=== PATIENT | male | born 1960 | race Caucasian/White ===

== ENCOUNTER → 2018-01-03 12:45 | Outpatient (CLI) | payer MEDICAID, SELFPAY ==
--- NOTE | 2018-01-03 13:00 | SP.MBSS_ITS ---
PRIMARY / SECONDARY DIAGNOSIS: dysphagia (R13.10) REFERRING PHYSICIAN: Dr. Yonatan Ward MD CURRENT DIET: regular textures, thin liquids DENTITION: WFL MENTAL STATUS: WNL RESPIRATORY STATUS: O2 via room air PREVIOUS MODIFIED BARIUM SWALLOW STUDY: none REASON FOR REFERRAL: Patient is a 57 year old male referred for a modified barium swallow (MBS) study to objectively assess the Patients oropharyngeal swallow function under fluoroscopy secondary to reported globus sensation, with the Patient reporting a long history of gastroesophageal reflux. 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 Patient denies recent history of pneumonia / aspiration related pulmonary issues. 01/05/2018 barium esophagram / upper GI series scheduled. ADDITIONAL OBJECTIVE ASSESSMENT RESULTS: 02/01/2017 CXR revealed no acute abnormality is seen. MEDICAL HISTORY: Gastroesophageal reflux disease, anxiety. STUDY FINDINGS: Patient participated in a Modified Barium Swallow (MBS) study on 01/03/2018. Dr. Paredes was the radiologist present for this evaluation. This study was recorded in the lateral view and images were sent to PACs for storage. The following consistencies were presented to this patient for analysis of oropharyngeal swallow function: thin liquids, pudding, and a regular textured, Zahida Doone cookie. Results of the MBS are as follows: PENETRATION / ASPIRATION SCALE (LAZAR): 1 = does not enter airway 2 = enters airway/above vocal folds/ejected 3 = enters airway/above vocal folds/not ejected 4 = enters airway/contacts vocal folds/ejected 5 = enters airway/contacts vocal folds/not ejected 6 = enters airway/below vocal folds/ejected 7 = enters airway/below vocal folds/not ejected despite effort 8 = enters airway/below vocal folds/no effort PENETRATION / ASPIRATION SCALE (SCORE): Thin liquid - 5 mL tsp.: 1 Thin liquids via cup (sequential swallows): 2 Thin liquids via cup (single sip): 1 Thin liquids via cup (single sip): 1 Thin liquids via cup (single sip): 1 Thin liquids via straw (single sip): 1 Pudding via spoon: 1 Regular textured cookie: 1 Thin liquids via straw (sequential swallows): 1 IMPRESSION: DIAGNOSIS: mild pharyngeal dysphagia (R13.13) ORAL PHASE CHARACTERIZED BY: LABIAL SEAL: no labial escape TONGUE CONTROL DURING BOLUS MANIPULATION: intermittent posterior escape of less than half of bolus BOLUS PREPARATION / MASTICATION: timely and efficient chewing and mashing BOLUS TRANSPORT / LINGUAL MOTION: brisk tongue motion ORAL RESIDUE: trace residue lining oral structures PHARYNGEAL PHASE CHARACTERIZED BY: INITIATION OF PHARYNGEAL SWALLOW: bolus head in pyriforms at first hyoid excursion SOFT PALATE ELEVATION: no bolus between soft palate and pharyngeal wall LARYNGEAL ELEVATION: complete superior movement of thyroid cartilage with complete approximation of arytenoids cartilage to epiglottic petiole ANTERIOR HYOID EXCURSION: complete anterior movement EPIGLOTTIC MOVEMENT: complete epiglottic inversion LARYNGEAL VESTIBULE CLOSURE AT HEIGHT OF SWALLOW: complete laryngeal vestibule closure with no air/contrast in laryngeal vestibule PHARYNGEAL STRIPPING WAVE: pharyngeal stripping wave present / complete PHARYNGOESOPHAGEAL SEGMENT OPENING: partial distension and partial duration; partial obstruction of flow TONGUE BASE RETRACTION: no contrast between tongue base and posterior pharyngeal wall PHARYNGEAL RESIDUE: trace residue within or on pharyngeal structures ESOPHAGEAL PHASE CHARACTERIZED BY: ESOPHAGEAL BOLUS CLEARANCE IN THE UPRIGHT POSITION: could not view EFFECTS OF TREATMENT STRATEGIES ATTEMPTED: Reduced bolus size = effective DIET TEXTURE RECOMMENDATIONS: Will recommend a regular textured, thin liquid diet. COMPENSATORY STRATEGIES RECOMMENDED: Reduced bolus volume, straws with all liquids, seated upright at 90 degrees during PO intake, remain upright for 30-60 minutes post meal (GERD precaution) INTERPRETATION OF RESULTS: Patient presents with very mild pharyngeal dysphagia (R13.13) with no clear etiology of cause. Pharyngeal phase primarily marked by mildly impaired pharyngeal swallow onset timing resulting in suboptimal bolus location upon swallow onset contributing to prandial transient penetration during sequential swallows of thin liquids, with sufficient laryngeal vestibule pressure generated to expel penetrated material. Mild reduction in pharyngoesophageal segment opening did not result in functional motility impairments. All deficits ameliorated with bolus volume adjustments. RECOMMENDATIONS: Patient able to comprehend and express recommended intake precautions detailed above with sufficient detail to suggest high likelihood of compliance. Provided brief overview of signs and symptoms of aspiration, with recommendations for the Patient to further discuss symptoms with PCP. No further skilled speech- language services warranted at this time targeting dysphagia. ADDITIONAL COMMENTS/RECOMMENDATIONS: Results and recommendations were discussed with the Patient immediately following MBS completion, with the Patient verbalizing understanding and agreement with all recommendations and education provided. IMAGE COUNT: [id number] G-CODES: SWALLOWING [id number] Current Status: CI SWALLOWING G8997 Goal Status: CI SWALLOWING G8998 Discharge Status: CI Onesimo Dejesus M.A., CCC-OIL WELL SERVICE OPERATOR [facility] Speech-Language Pathology Department [email or web address]
== END ==
PROVIDERS: Family Provider Family Medicine; PCP Family Medicine; Visit Provider Otolaryngology
DX: R13.10 Dysphagia, unspecified (principal)
CPT/HCPCS: 74230; 92611

== ENCOUNTER → 2018-01-05 07:48 | Outpatient (CLI) | payer MEDICAID, SELFPAY | PROVIDERS: Family Provider Family Medicine; PCP Family Medicine; Visit Provider Otolaryngology | DX: R13.10 Dysphagia, unspecified (principal) | CPT/HCPCS: 74220 ==

== ENCOUNTER → 2020-04-08 15:32 | Outpatient (CLI) | payer MEDICAID, SELFPAY ==
[2020-04-08 15:06] VITALS: BMI 30.3
[2020-04-08 17:28] LABS: Absolute Lymphocyte Count 1.93 X10^3/uL (0.83-4.51); Absolute Neutrophil Count 3.6 X10^3/uL (2.0-7.7); Basophil# 0.04 X10^3/uL; Basophil% 0.6 % (0-1); Eosinophil# 0.26 X10^3/uL; Eosinophils% 4.1 % (0-5); Hematocrit 42.4 % (40-54); Hemoglobin 13.5 g/dL (13.0-16.5); Lymphocyte # 1.93 X10^3/ul (4.0); Lymphocyte % 30.3 % (19-41); Mean Corp Hgb Conc 31.8 g/dL (32-36); Mean Corpuscular Hgb 29.8 pg (27.0-32.0); Mean Corpuscular Volume 93.6 fL (80-94); Mean Platelet Vol. 10.3 fl (6.2-12.0); Monocyte# 0.54 X10^3/uL; Monocyte% 8.5 % (0-10); NRBC Flagged by Analyzer 0 % (0-5); Neutrophil # 3.59 X10^3/uL (2.7-7.7); Neutrophil % 56.3 % (47-70); Platelet Count 275 K/mm3 (150-450); RBC Distribution Width CV 12.4 % (11.6-14.6); Red Blood Count 4.53 M/mm3 (4.6-6.2); White Blood Count 6.4 K/mm3 (4.4-11.0)
[2020-04-08 17:41] LABS: ALB/GLOB Ratio 1.1 RATIO (0.9-2.4); AST(SGOT) 15 U/L (15-37); Alanine Aminotransfer ALT/SGPT 34 U/L (16-61); Albumin, Serum 3.6 g/dL (3.2-5.0); Alkaline Phosphatase 83 U/L (45-117); Anion Gap 4 (5-15); BUN 24 mg/dL (7-18); Calcium,Total 8.4 mg/dL (8.5-10.1); Chloride 108 mmol/L (98-107); Cholesterol 175 mg/dL (200); EST Glomerular Filtration Rate 48 mL/min (>60); Est Glom Filt Rate - Afr Amer 57 mL/min (>60); Globulin 3.3 g/dL (2.2-4.2); Glucose 102 mg/dL (74-106); High Density Lipoprotein 30 mg/dL; Potassium 4.4 mmol/L (3.5-5.1); Protein, Total 6.9 g/dL (6.4-8.2); Sodium Level 141 mmol/L (136-145); Triglycerides 340 mg/dL; Very Low Density Lipoprotein 68 mg/dL (5-40)
== END ==
PROVIDERS: PCP Internal Medicine; Referring Provider Internal Medicine; Visit Provider Internal Medicine
DX: F41.9 Anxiety disorder, unspecified (principal); F32.9 Major depressive disorder, single episode, unspecified; K21.9 Gastro-esophageal reflux disease without esophagitis
CPT/HCPCS: 36415; 80053; 80061; 85025

== ENCOUNTER → 2020-05-21 15:13 | Outpatient (CLI) | payer MEDICARE, MEDICAID, SELFPAY ==
[2020-05-21 14:25] VITALS: BMI 29.7
[2020-05-21 16:50] LABS: Anion Gap 3 (5-15); BUN 22 mg/dL (7-18); BUN/Creat Ratio 16.1 RATIO (10-20); Calcium,Total 8.9 mg/dL (8.5-10.1); Chloride 105 mmol/L (98-107); Creatinine, Serum 1.37 mg/dL (0.70-1.30); EST Glomerular Filtration Rate 57 mL/min (>60); Est Glom Filt Rate - Afr Amer 69 mL/min (>60); Glucose 87 mg/dL (74-106); Potassium 5.3 mmol/L (3.5-5.1); Sodium Level 141 mmol/L (136-145)
== END ==
PROVIDERS: PCP Internal Medicine; Referring Provider Internal Medicine; Visit Provider Internal Medicine
DX: N17.9 Acute kidney failure, unspecified (principal)
CPT/HCPCS: 36415; 80048

== ENCOUNTER → 2020-06-14 14:35 | Outpatient (CLI) | payer MEDICARE, MEDICAID, SELFPAY ==
[2020-05-21 14:25] VITALS: BMI 29.7
--- NOTE | 2020-06-14 14:54 | RAD_ITS ---
STUDY: X-RAY CHEST REASON FOR EXAM: Male, 59 years old. CHEST PAIN TECHNIQUE: PA and lateral views of the chest. COMPARISON: 02/01/2017 FINDINGS: Status post anterior cervical discectomy and fusion lower cervical spine. The lungs are clear and expanded. There is no demonstrated pleural abnormality. Normal size heart. Normal mediastinum and tyler. Normal visualized pulmonary arteries. Normal visualized aortic arch and descending thoracic aorta. Normal visualized thoracic spine. Normal visualized ribs, clavicles, and shoulders. There is no demonstrated abnormality of the visualized soft tissue structures of the upper abdomen. RAD/Chest PA and Lateral IMPRESSION: Normal x-ray examination of the chest. Electronically Signed: Billy Robles MD at 6:48 EST Tel , Service support ,
== END ==
PROVIDERS: PCP Internal Medicine; Referring Provider Internal Medicine; Visit Provider Internal Medicine
DX: R07.89 Other chest pain (principal)
CPT/HCPCS: 71046

== ENCOUNTER → 2020-06-24 14:37 | Outpatient (CLI) | payer MEDICARE, MEDICAID, SELFPAY ==
[2020-06-24 14:08] VITALS: BMI 29.7
[2020-06-24 17:00] LABS: Anion Gap 7 (5-15); BUN 23 mg/dL (7-18); BUN/Creat Ratio 14.4 RATIO (10-20); Calcium,Total 8.9 mg/dL (8.5-10.1); Chloride 108 mmol/L (98-107); EST Glomerular Filtration Rate 47 mL/min (>60); Est Glom Filt Rate - Afr Amer 57 mL/min (>60); Glucose 116 mg/dL (74-106); Potassium 4.2 mmol/L (3.5-5.1); Sodium Level 140 mmol/L (136-145)
== END ==
PROVIDERS: PCP Internal Medicine; Visit Provider Internal Medicine
DX: K21.9 Gastro-esophageal reflux disease without esophagitis (principal)
CPT/HCPCS: 36415; 80048

== ENCOUNTER → 2020-07-02 09:27 | Outpatient (CLI) | payer MEDICARE, SELFPAY ==
[2020-06-24 14:08] VITALS: BMI 29.7
--- NOTE | 2020-07-02 09:30 | EKG12_ITS ---
Test Reason : PRE OP Blood Pressure : / mmHG Vent. Rate : 081 BPM Atrial Rate : 081 BPM P-R Int : 162 ms QRS Dur : 086 ms QT Int : 364 ms P-R-T Axes : 019 011 027 degrees QTc Int : 422 ms Normal sinus rhythm Normal ECG Confirmed by NICHOLE PHILLIPS, ERICK ([id number]), editor map KIMBERLEY MIRELES ([id number]) on 07/03/2020 10:07:03 AM Referred By: Jayy Araya Confirmed By:ERICK VARELA MD
== END ==
PROVIDERS: PCP Internal Medicine; Referring Provider Internal Medicine; Visit Provider Internal Medicine
DX: E78.5 Hyperlipidemia, unspecified (principal); K21.9 Gastro-esophageal reflux disease without esophagitis
CPT/HCPCS: 93005

== ENCOUNTER → 2020-09-20 13:39 | Outpatient (CLI) | payer MEDICARE, SELFPAY ==
[2020-09-20 13:26] VITALS: BMI 30.3
[2020-09-20 15:29] LABS: Anion Gap 5 (5-15); BUN 16 mg/dL (7-18); BUN/Creat Ratio 10.3 RATIO (10-20); Calcium,Total 9.2 mg/dL (8.5-10.1); Chloride 107 mmol/L (98-107); Creatinine, Serum 1.56 mg/dL (0.70-1.30); EST Glomerular Filtration Rate 49 mL/min (>60); Est Glom Filt Rate - Afr Amer 59 mL/min (>60); Glucose 130 mg/dL (74-106); Potassium 5.1 mmol/L (3.5-5.1); Sodium Level 144 mmol/L (136-145)
== END ==
PROVIDERS: PCP Internal Medicine; Referring Provider Internal Medicine; Visit Provider Internal Medicine
DX: N28.9 Disorder of kidney and ureter, unspecified (principal)
CPT/HCPCS: 36415; 80048

== ENCOUNTER → 2020-12-23 11:41 | Outpatient (CLI) | payer MEDICARE, SELFPAY ==
[2020-12-23 10:56] VITALS: BMI 30.3
--- NOTE | 2020-12-23 12:02 | RAD_ITS ---
STUDY: X-RAY - LUMBAR SPINE REASON FOR EXAM: Male, 60 years old. Mid and low back with radiculopathy TECHNIQUE: 3 view(s) of the lumbar spine were obtained. COMPARISON: None FINDINGS: There is straightening of the normal lumbar lordosis. There is no substantial scoliosis. There is a normal alignment of the vertebrae. There is multilevel endplate spondylosis of the lumbar vertebrae. There is multi-level degenerative disc disease with multi-level disc space narrowing. There is no demonstrated fracture. There is atherosclerotic calcification of the abdominal aorta without a demonstrated aneurysm. RAD/Lumbar Spine 2 or 3 Views IMPRESSION: Degenerative changes of the spine, as detailed above. Electronically Signed: Baltazar Pringle MD at 19:01 EDT , Service support ,
--- NOTE | 2020-12-23 12:05 | RAD_ITS ---
STUDY: X-RAY - THORACIC SPINE REASON FOR EXAM: Male, 60 years old. Mid and low back with radiculopathy TECHNIQUE: 3 view(s) of the thoracic spine were obtained. COMPARISON: None. FINDINGS: Normal kyphosis of the thoracic spine. There is no substantial scoliosis. Normal thoracic vertebrae and endplates. There is multilevel disc space narrowing of the thoracic spine. The soft tissue structures are unremarkable. RAD/Thoracic Spine 3 Views IMPRESSION: Multilevel degenerative changes, no acute findings Electronically Signed: Baltazar Pringle MD at 19:02 EDT , Service support ,
[2020-12-23 15:44] LABS: AST(SGOT) 13 U/L (15-37); Alanine Aminotransfer ALT/SGPT 32 U/L (16-61); Albumin, Serum 3.8 g/dL (3.2-5.0); Alkaline Phosphatase 83 U/L (45-117); Anion Gap 4 (5-15); BUN 20 mg/dL (7-18); Calcium,Total 8.8 mg/dL (8.5-10.1); Chloride 106 mmol/L (98-107); Creatinine, Serum 1.33 mg/dL (0.70-1.30); EST Glomerular Filtration Rate 59 mL/min (>60); Est Glom Filt Rate - Afr Amer 71 mL/min (>60); Globulin 3.7 g/dL (2.2-4.2); Glucose 82 mg/dL (74-106); Magnesium 2.6 mg/dL (1.6-2.6); Potassium 5.1 mmol/L (3.5-5.1); Protein, Total 7.5 g/dL (6.4-8.2); Sodium Level 141 mmol/L (136-145)
== END ==
PROVIDERS: PCP Internal Medicine; Referring Provider Physician Assistant; Visit Provider Physician Assistant
DX: M54.5 Low back pain (principal); M54.6 Pain in thoracic spine; R25.2 Cramp and spasm
CPT/HCPCS: 36415; 72072; 72100; 80053; 83735

== ENCOUNTER → 2021-03-21 13:36 | Outpatient (CLI) | payer MEDICARE, SELFPAY ==
[2021-03-21 15:29] LABS: Absolute Lymphocyte Count 1.67 X10^3/uL (0.83-4.51); Absolute Neutrophil Count 4.3 X10^3/uL (2.0-7.7); Basophil# 0.03 X10^3/uL; Basophil% 0.4 % (0-1); Eosinophil# 0.28 X10^3/uL; Eosinophils% 4.2 % (0-5); Hematocrit 42.2 % (40-54); Lymphocyte # 1.67 X10^3/ul (0.83-4.51); Lymphocyte % 24.8 % (19-41); Mean Corp Hgb Conc 33.2 g/dL (32-36); Mean Corpuscular Volume 90.6 fL (80-94); Monocyte# 0.39 X10^3/uL; Monocyte% 5.8 % (0-10); NRBC Flagged by Analyzer 0 % (0-5); Neutrophil # 4.34 X10^3/uL (2.7-7.7); Neutrophil % 64.5 % (47-70); Platelet Count 320 K/mm3 (150-450); RBC Distribution Width CV 12.6 % (11.6-14.6); Red Blood Count 4.66 M/mm3 (4.6-6.2); White Blood Count 6.7 K/mm3 (4.4-11.0)
[2021-03-21 15:46] LABS: ALB/GLOB Ratio 0.9 RATIO (0.9-2.4); AST(SGOT) 22 U/L (15-37); Alanine Aminotransfer ALT/SGPT 42 U/L (16-61); Albumin, Serum 3.7 g/dL (3.2-5.0); Alkaline Phosphatase 75 U/L (45-117); Anion Gap 5 (5-15); BUN 21 mg/dL (7-18); BUN/Creat Ratio 13.7 RATIO (10-20); Calcium,Total 8.7 mg/dL (8.5-10.1); Chloride 107 mmol/L (98-107); Cholesterol 207 mg/dL (200); Creatinine, Serum 1.53 mg/dL (0.70-1.30); EST Glomerular Filtration Rate 50 mL/min (>60); Est Glom Filt Rate - Afr Amer 60 mL/min (>60); Glucose 118 mg/dL (74-106); High Density Lipoprotein 38 mg/dL; Potassium 4.2 mmol/L (3.5-5.1); Protein, Total 7.7 g/dL (6.4-8.2); Sodium Level 141 mmol/L (136-145); Triglycerides 244 mg/dL; Very Low Density Lipoprotein 49 mg/dL (5-40)
== END ==
PROVIDERS: PCP Internal Medicine; Referring Provider Internal Medicine; Visit Provider Internal Medicine
DX: E78.5 Hyperlipidemia, unspecified (principal)
CPT/HCPCS: 36415; 80053; 80061; 85025

== ENCOUNTER 2021-06-25 13:19 | Outpatient (CLI) | payer MEDICARE, SELFPAY ==
[2021-06-25 15:45] LABS: BUN 19 mg/dL (7-18); BUN/Creat Ratio 13.7 RATIO (10-20); Calcium,Total 8.5 mg/dL (8.5-10.1); Chloride 106 mmol/L (98-107); Creatinine, Serum 1.39 mg/dL (0.70-1.30); EST Glomerular Filtration Rate 56 mL/min (>60); Est Glom Filt Rate - Afr Amer 67 mL/min (>60); Glucose 107 mg/dL (74-106); Potassium 4.7 mmol/L (3.5-5.1); Sodium Level 140 mmol/L (136-145)
[2021-06-25 15:46] LABS: Anion Gap 2 (5-15)
== END 2021-06-25 23:59 | disposition home or self-care (01) ==
LOC: BIMLAB 13:20
PROVIDERS: PCP Internal Medicine; Referring Provider Internal Medicine; Visit Provider Internal Medicine
DX: N18.30 Chronic kidney disease, stage 3 unspecified (principal)
CPT/HCPCS: 36415; 80048

== ENCOUNTER → 2021-10-07 | Outpatient (CLI) | payer MEDICARE, SELFPAY ==
[2021-10-07 12:38] LABS: Erythrocyte Sedimentation Rate 13 mm/hr (0-20)
[2021-10-07 13:19] LABS: Rheumatoid Factor < 10.0 IU/mL (<15)
[2021-10-08 15:50] LABS: ANTINUCLEAR ANTIBODIES DIRECT Negative (Negative)
[2021-10-09 08:16] LABS: CCP IgG Antibodies 7 units (0-19)
== END | disposition home or self-care (01) ==
LOC: BIMLAB 11:35
PROVIDERS: PCP Internal Medicine; Referring Provider Internal Medicine; Visit Provider Internal Medicine
DX: M19.90 Unspecified osteoarthritis, unspecified site (principal); R53.83 Other fatigue
CPT/HCPCS: 36415; 85652; 86038; 86200; 86225; 86235; 86431

== ENCOUNTER 2021-11-13 09:45 | Outpatient (CLI) | payer MEDICARE, SELFPAY ==
[2021-11-13 12:47] LABS: Hematocrit 43.1 % (40-54); Hemoglobin 14.3 g/dL (13.0-16.5); Mean Corp Hgb Conc 33.2 g/dL (32-36); Mean Corpuscular Hgb 30.2 pg (27.0-32.0); Mean Corpuscular Volume 90.9 fL (80-94); Mean Platelet Vol. 9.9 fl (6.2-12.0); Platelet Count 301 K/mm3 (150-450); RBC Distribution Width CV 12.1 % (11.6-14.6); RBC Distribution Width SD 40.2 fl (35.1-43.9); Red Blood Count 4.74 M/mm3 (4.6-6.2); White Blood Count 5.7 K/mm3 (4.4-11.0)
[2021-11-13 13:04] LABS: Homocysteine 6.8 umol/L (3.2-10.7)
[2021-11-13 13:07] LABS: T3 Total - Triiodothyronine 1.41 ng/mL (0.6-1.81); Vitamin B12 664 pg/mL (211-911); Vitamin D,25 Hydroxy 23.1 ng/mL
[2021-11-13 13:16] LABS: Progesterone Level < 0.21 ng/mL (See Comment)
[2021-11-13 13:24] LABS: Hemoglobin A1c 5.4 % (3.8-5.6)
[2021-11-13 13:59] LABS: ALB/GLOB Ratio 1.1 RATIO (0.9-2.4); AST(SGOT) 15 U/L (15-37); Alanine Aminotransfer ALT/SGPT 34 U/L (16-61); Albumin, Serum 3.9 g/dL (3.2-5.0); Alkaline Phosphatase 81 U/L (45-117); Anion Gap 2 (5-15); BUN 20 mg/dL (7-18); BUN/Creat Ratio 15.7 RATIO (10-20); CRP, High Sensitivity Cardiac 8.46 mg/L; Calcium,Total 8.7 mg/dL (8.5-10.1); Chloride 107 mmol/L (98-107); Cholesterol 190 mg/dL (200); Creatinine, Serum 1.27 mg/dL (0.70-1.30); EST Glomerular Filtration Rate 62 mL/min (>60); Est Glom Filt Rate - Afr Amer 75 mL/min (>60); Estradiol 13.2 pg/mL; Follicle Stimulating Hormone 4.3 mIU/mL; Globulin 3.6 g/dL (2.2-4.2); Glucose 103 mg/dL (74-106); High Density Lipoprotein 39 mg/dL; Iron 85 ug/dL (65-175); Luteinizing Hormone 3.1 mIU/mL; Magnesium 2.2 mg/dL (1.6-2.6); PSA,Total - Annual Screen 1.32 ng/mL (0.00-4.00); Potassium 4.4 mmol/L (3.5-5.1); Prolactin 5.5 ng/mL; Protein, Total 7.5 g/dL (6.4-8.2); Sodium Level 139 mmol/L (136-145); T4 Free Direct 0.79 ng/dL (0.76-1.46); T4 Total, Thyroxin 9.1 ug/dL (4.5-12.1); Triglycerides 162 mg/dL; Very Low Density Lipoprotein 32 mg/dL (5-40)
[2021-11-16 12:07] LABS: DHEA Sulfate 52.5 ug/dL (48.9-344.2); Insulin Like Growth Factor 37 ng/mL (68-247); Testosterone, % Free 3.52 % (1.50-4.20); Testosterone, Free 8.76 ng/dL (5.00-21.00)
[2021-11-16 13:36] LABS: Sex Hormone-binding Globulin 23.3 nmol/L (19.3-76.4); Testosterone, Total 249 ng/dL (264-916)
== END 2021-11-13 23:59 | disposition home or self-care (01) ==
PROVIDERS: PCP Internal Medicine; Referring Provider Nurse Practitioner Family; Visit Provider Nurse Practitioner Family
DX: R53.82 Chronic fatigue, unspecified (principal); N18.30 Chronic kidney disease, stage 3 unspecified; M62.81 Muscle weakness (generalized); R68.82 Decreased libido; Z12.5 Encounter for screening for malignant neoplasm of prostate; E29.1 Testicular hypofunction; I10 Essential (primary) hypertension; F32.A Depression, unspecified
CPT/HCPCS: 36415; 80053; 80061; 82306; 82533; 82607; 82627; 82670; 82746; 83001; 83002; 83036; 83090; 83540; 83735; 84144; 84146; 84153; 84270; 84305; 84402; 84403; 84436; 84439; 84443; 84480; 85027; 86141; 82626; G0103

== ENCOUNTER 2022-02-03 12:10 | Outpatient (CLI) | payer MEDICARE, SELFPAY ==
[2022-02-03 12:59] LABS: Hematocrit 47.8 % (40-54); Hemoglobin 15.9 g/dL (13.0-16.5); Mean Corp Hgb Conc 33.3 g/dL (32-36); Mean Corpuscular Hgb 30.1 pg (27.0-32.0); Mean Corpuscular Volume 90.5 fL (80-94); Mean Platelet Vol. 9.7 fl (6.2-12.0); Platelet Count 312 K/mm3 (150-450); RBC Distribution Width CV 12.6 % (11.6-14.6); Red Blood Count 5.28 M/mm3 (4.6-6.2); White Blood Count 6.9 K/mm3 (4.4-11.0)
[2022-02-03 13:28] LABS: T3 Total - Triiodothyronine 1.25 ng/mL (0.6-1.81); Vitamin B12 553 pg/mL (211-911); Vitamin D,25 Hydroxy 22.7 ng/mL
[2022-02-03 13:42] LABS: Homocysteine 7.6 umol/L (3.2-10.7)
[2022-02-03 13:45] LABS: Hemoglobin A1c 5.1 % (3.8-5.6)
[2022-02-03 14:14] LABS: ALB/GLOB Ratio 0.9 RATIO (0.9-2.4); AST(SGOT) 15 U/L (15-37); Alanine Aminotransfer ALT/SGPT 26 U/L (16-61); Albumin, Serum 3.6 g/dL (3.2-5.0); Alkaline Phosphatase 81 U/L (45-117); Anion Gap 6 (5-15); BUN 14 mg/dL (7-18); BUN/Creat Ratio 12.1 RATIO (10-20); Calcium,Total 8.5 mg/dL (8.5-10.1); Chloride 107 mmol/L (98-107); Cholesterol 166 mg/dL (200); Creatinine, Serum 1.16 mg/dL (0.70-1.30); EST Glomerular Filtration Rate 68 mL/min (>60); Est Glom Filt Rate - Afr Amer 83 mL/min (>60); Estradiol 56.5 pg/mL; Follicle Stimulating Hormone < 0.2 mIU/mL; Globulin 3.8 g/dL (2.2-4.2); Glucose 84 mg/dL (74-106); High Density Lipoprotein 35 mg/dL; Iron 50 ug/dL (65-175); Luteinizing Hormone < 0.2 mIU/mL; Magnesium 2.3 mg/dL (1.6-2.6); PSA,Total- Diagnostic 1.89 ng/mL (0.0-4.0); Potassium 4.4 mmol/L (3.5-5.1); Protein, Total 7.4 g/dL (6.4-8.2); Sodium Level 140 mmol/L (136-145); T4 Total, Thyroxin 6.1 ug/dL (4.5-12.1); Thyroid Stim Hormone (TSH) 1.12 uIU/mL (0.358-3.74); Triglycerides 150 mg/dL; Very Low Density Lipoprotein 30 mg/dL (5-40)
[2022-02-04 10:53] LABS: Progesterone Level 0.29 ng/mL (See Comment)
[2022-02-15 18:07] LABS: DHEA Sulfate 69.3 ug/dL (48.9-344.2); Insulin Like Growth Factor 55 ng/mL (68-247); Testosterone, % Free 3.55 % (1.50-4.20); Testosterone, Free 32.98 ng/dL (5.00-21.00)
[2022-02-16 13:42] LABS: Sex Hormone-binding Globulin 22.1 nmol/L (19.3-76.4); Testosterone, Total 929 ng/dL (264-916)
== END 2022-02-03 23:59 | disposition home or self-care (01) ==
PROVIDERS: PCP Internal Medicine; Visit Provider Nurse Practitioner Family
DX: R53.82 Chronic fatigue, unspecified (principal); M62.81 Muscle weakness (generalized); R68.82 Decreased libido; K29.30 Chronic superficial gastritis without bleeding; F06.31 Mood disorder due to known physiological condition with depressive features
CPT/HCPCS: 36415; 80053; 80061; 82306; 82533; 82607; 82627; 82670; 82746; 83001; 83002; 83036; 83090; 83540; 83735; 84144; 84146; 84153; 84270; 84305; 84402; 84403; 84436; 84439; 84443; 84480; 85027; 86141; 82626

== ENCOUNTER 2022-08-27 15:07 | Outpatient (CLI) | payer MEDICARE, SELFPAY ==
[2022-08-27 16:36] LABS: Absolute Lymphocyte Count 1.92 X10^3/uL (0.83-4.51); Absolute Neutrophil Count 3.7 X10^3/uL (2.0-7.7); Basophil# 0.05 X10^3/uL; Basophil% 0.8 % (0-1); Eosinophil# 0.24 X10^3/uL; Eosinophils% 3.7 % (0-5); Hematocrit 42.1 % (40-54); Hemoglobin 14.3 g/dL (13.0-16.5); Lymphocyte # 1.92 X10^3/ul (0.83-4.51); Lymphocyte % 29.9 % (19-41); Mean Corpuscular Hgb 31.3 pg (27.0-32.0); Mean Corpuscular Volume 92.1 fL (80-94); Mean Platelet Vol. 9.9 fl (6.2-12.0); Monocyte# 0.46 X10^3/uL; Monocyte% 7.2 % (0-10); NRBC Flagged by Analyzer 0 % (0-5); Neutrophil # 3.72 X10^3/uL (2.7-7.7); Neutrophil % 57.9 % (47-70); Platelet Count 277 K/mm3 (150-450); RBC Distribution Width CV 12.5 % (11.6-14.6); RBC Distribution Width SD 42.1 fl (35.1-43.9); Red Blood Count 4.57 M/mm3 (4.6-6.2); White Blood Count 6.4 K/mm3 (4.4-11.0)
[2022-08-27 16:43] LABS: Prothrombin Time (Protime)PT. 12.7 SECONDS (11.7-14.9)
[2022-08-27 16:44] LABS: Partial Thromboplast Time 26.9 Seconds (24.1-36.2)
[2022-08-27 17:04] LABS: ALB/GLOB Ratio 1.2 RATIO (0.9-2.4); AST(SGOT) 11 U/L (15-37); Alanine Aminotransfer ALT/SGPT 28 U/L (16-61); Albumin, Serum 3.8 g/dL (3.2-5.0); Alkaline Phosphatase 76 U/L (45-117); Anion Gap 5 (5-15); BUN 19 mg/dL (7-18); BUN/Creat Ratio 19.7 RATIO (10-20); Calcium,Total 8.4 mg/dL (8.5-10.1); Chloride 107 mmol/L (98-107); Creatinine, Serum 0.96 mg/dL (0.70-1.30); EST Glomerular Filtration Rate 85 mL/min (>60); Est Glom Filt Rate - Afr Amer 102 mL/min (>60); Globulin 3.2 g/dL (2.2-4.2); Glucose 104 mg/dL (74-106); Potassium 3.7 mmol/L (3.5-5.1); Sodium Level 138 mmol/L (136-145)
== END 2022-08-27 23:59 | disposition home or self-care (01) ==
LOC: BIMLAB 15:08
PROVIDERS: PCP Internal Medicine; Visit Provider Internal Medicine
DX: Z01.818 Encounter for other preprocedural examination (principal); Z01.810 Encounter for preprocedural cardiovascular examination; Z01.811 Encounter for preprocedural respiratory examination; Z79.01 Long term (current) use of anticoagulants
CPT/HCPCS: 36415; 80053; 85025; 85610; 85730

== ENCOUNTER → 2023-03-11 | Outpatient (CLI) | payer MEDICARE, MEDICAID, SELFPAY ==
[2023-03-11 16:57] LABS: Cholesterol 216 mg/dL (200); High Density Lipoprotein 32 mg/dL; Triglycerides 368 mg/dL; Very Low Density Lipoprotein 74 mg/dL (5-40)
== END | disposition home or self-care (01) ==
LOC: BIMLAB 15:54
PROVIDERS: PCP Internal Medicine; Referring Provider Internal Medicine; Visit Provider Internal Medicine
DX: R35.1 Nocturia (principal); Z79.899 Other long term (current) drug therapy
CPT/HCPCS: 36415; 80061; 84153; G0103

== ENCOUNTER 2023-04-01 15:16 | Observation (INO) | payer MEDICARE, MEDICAID, SELFPAY ==
--- NOTE | 2023-03-26 06:57 | EKG12_ITS ---
Test Reason : PRE-OP Blood Pressure : / mmHG Vent. Rate : 081 BPM Atrial Rate : 081 BPM P-R Int : 174 ms QRS Dur : 080 ms QT Int : 366 ms P-R-T Axes : 034 020 052 degrees QTc Int : 425 ms Normal sinus rhythm Normal ECG Confirmed by NO PHILLIPS, GENIE ([id number]), subeditor SHANICE RIZVI ([id number]) on 03/29/2023 8:23:16 AM Referred By: Clayton Feldman Confirmed By:MARIAM SARABIA MD
--- NOTE | 2023-03-26 07:05 | RAD_ITS ---
STUDY: X-RAY CHEST REASON FOR EXAM: Male, 62 years old. PREOP TECHNIQUE: PA and lateral views of the chest. COMPARISON: 06/14/2020 FINDINGS: Status post anterior cervical discectomy and fusion lower cervical spine. The lungs are clear and expanded. There is no demonstrated pleural abnormality. Normal size heart. Normal mediastinum and tyler. Normal visualized pulmonary arteries. Normal visualized aortic arch and descending thoracic aorta. Normal visualized thoracic spine. Normal visualized ribs, clavicles, and shoulders. There is no demonstrated abnormality of the visualized soft tissue structures of the upper abdomen. RAD/Chest PA and Lateral IMPRESSION: No active disease. Electronically Signed: Billy Robles MD at 18:27 [facility] ,
[2023-03-26 07:43] LABS: Absolute Lymphocyte Count 1.81 X10^3/uL (0.83-4.51); Absolute Neutrophil Count 4.4 X10^3/uL (2.0-7.7); Basophil# 0.04 X10^3/uL; Basophil% 0.6 % (0-1); Eosinophil# 0.31 X10^3/uL; Eosinophils% 4.3 % (0-5); Hematocrit 42.9 % (40-54); Hemoglobin 14.7 g/dL (13.0-16.5); Lymphocyte # 1.81 X10^3/ul (0.83-4.51); Lymphocyte % 25.2 % (19-41); Mean Corp Hgb Conc 34.3 g/dL (32-36); Mean Corpuscular Hgb 31.5 pg (27.0-32.0); Mean Corpuscular Volume 92.1 fL (80-94); Mean Platelet Vol. 9.9 fl (6.2-12.0); Monocyte# 0.58 X10^3/uL; Monocyte% 8.1 % (0-10); NRBC Flagged by Analyzer 0 % (0-5); Neutrophil # 4.43 X10^3/uL (2.7-7.7); Neutrophil % 61.5 % (47-70); Platelet Count 304 K/mm3 (150-450); RBC Distribution Width CV 12.4 % (11.6-14.6); RBC Distribution Width SD 41.9 fl (35.1-43.9); Red Blood Count 4.66 M/mm3 (4.6-6.2); White Blood Count 7.2 K/mm3 (4.4-11.0)
[2023-03-26 07:52] LABS: International Normalized Ratio 0.9; Prothrombin Time (Protime)PT. 12.5 SECONDS (11.7-14.9)
[2023-03-26 07:53] LABS: Partial Thromboplast Time 27.6 Seconds (24.1-36.2)
[2023-03-26 08:09] LABS: Anion Gap 3 (5-15); BUN 23 mg/dL (7-18); BUN/Creat Ratio 18.7 RATIO (10-20); Calcium,Total 8.2 mg/dL (8.5-10.1); Chloride 109 mmol/L (98-107); Creatinine, Serum 1.23 mg/dL (0.70-1.30); EST Glomerular Filtration Rate 64 mL/min (>60); Est Glom Filt Rate - Afr Amer 77 mL/min (>60); Glucose 125 mg/dL (74-106); Potassium 3.9 mmol/L (3.5-5.1); Sodium Level 139 mmol/L (136-145)
[2023-04-01] VITALS (33 sets, daily range): BP systolic 106–144; BP diastolic 64–97; PULSE 78–100; RESP 15–18; TEMP 36.2–36.6; O2SAT 88–100; BMI 30.6
[2023-04-01] MEDS: Lactated Ringers 1,000 ML 15 ML IV ×2 (06:32→13:24)
--- NOTE | 2023-04-01 07:19 | PCM.OPRPT ---
Problems Associated Problem List Diagnoses (1) Lumbar stenosis: Report of Operation Date of Procedure: 04/01/23 Description of Surgical Findings:: REPORT OF OPERATION PREOPERATIVE DIAGNOSES: 1. Lumbar stenosis, L4-5 with spondylosis. 2. Lumbar disc herniation L4-5 right. POSTOPERATIVE DIAGNOSES: 1. Lumbar stenosis, L4-5 with spondylosis. 2. Lumbar disc herniation L4-5 right PROCEDURE PERFORMED: 1. L4 laminectomy, bilateral L4-5 foraminotomies 2. Right L4-5 discectomy SURGEON: [ ] OPERATION MANAGER: ANESTHESIA: General endotracheal anesthesia. IV FLUIDS: ESTIMATED BLOOD LOSS: URINE OUTPUT: STATEMENT OF MEDICAL NECESSITY: The patient is a 62-year-old male with intractable back and leg pain. Image studies confirm above diagnosis. He has failed conservative treatment to include: medicine, therapy, and injections. The patient opted for operative intervention, understanding the risks to include, but not limited to infection, bleeding, damage to nerves, arteries, and veins, possibility of spinal fluid leak, nonunion, hardware failure, continued pain, need for further surgery, deep vein thrombosis, pulmonary embolism, heart attack, risk of stroke, or . DESCRIPTION OF PROCEDURE: The patient was identified in the preoperative holding area. There, he received the preoperative IV antibotics and then transferred to the operating suite. Once in the operating suite, after general endotracheal anesthesia was established, the patient was transferred to the [facility] operating table in the prone position. All bony prominences were padded accordingly. The lumbar spine was prepped and draped in standard surgical fashion. Midline incision was made and taken down to the lumbodorsal fascia. This was divided and subperiosteal dissection taken down to the level of the L4-5 facet joints bilaterally. Deep retractors were placed. A bone scalpel was used to make the cuts in the lamina of L4 bilaterally and then a series of Kerrisons and rongeurs was used removing the spinous process and lamina of L4 bilaterally. The dura and nerve was identified, and the nerve root was then retracted medially. A large subligamentous disc herniation was identified. A knife was used to perform an annulotomy at L4-5 on the right and a large subligamentous disc was removed using pituitaries, any loose fragments were identified and removed and the wound was irrigated. Tissel was placed over the dura as a hemostatic agent. The fascia was closed with #1 Vicryl, subcutaneous with 2-0 Vicryl, skin was closed with 2-0 nylon. Sterile dressing was applied with 4 x 4, ABD, and tape. Sponge, instrument, and needle counts were correct at the end of the case. The patient was extubated, taken to PACU without incident. Surgeon: Clayton Feldman Type of Anesthesia: General Estimated Blood Loss (mL): 20 cc Fluids Replaced: 1500 cc Complications None Admit VTE Documentation VTE Present on Admission: No
--- NOTE | 2023-04-01 07:19 | PCM.PN.ORT ---
Subjective Subjective Seen and examined postop. Resting comfortably. Pain controlled. No complaints Objective Data Objective Data Vital Signs: Vital Signs Temp Pulse Resp BP Pulse Ox O2 Del Method 97.4 F L 80 16 123/97 H 98 Room Air 04/01/23 06:16 04/01/23 06:16 04/01/23 06:16 04/01/23 06:16 04/01/23 06:16 04/01/23 06:16 Oxygen Delivery Method Room Air Weight: 189 lb 9.561 oz Body Mass Index (BMI) 30.6 Lab / Micro Data 03/26/23 07:12 03/26/23 07:12 Physical Exam Const alert, oriented x3 and no apparent distress General Appearance: cooperative, comfortable and well kempt HEENT normocephalic and head/scalp atraumatic Head and Scalp: normal to inspection Eyes EOMs intact bilaterally and conjunctivae normal Neck full ROM General: normal visual inspection Chest inspection of chest normal and palpation of chest normal Resp normal respiratory effort and normal air movement Cardio regular rate, regular rhythm and peripheral pulses 2+ throughout GI soft to palpation, non-tender and non-distended Back/Spine Back/Spine Narrative: Dressing clean dry and intact Cervical Spine: cervical ROM normal Thoracic Spine / Upper Back: normal to inspection Lumbar Spine / Lower Back: normal to inspection Extremity normal to inspection, full ROM, normal capillary refill, no clubbing, cyanosis or edema and no calf tenderness Skin no rashes or lesions noted General Skin Exam: no breakdown Neuro oriented x3, CN's II-XII intact bilaterally, moves all extremities, no focal motor deficits, no sensory deficits noted and deep tendon reflexes 2+ bilaterally Motor Exam: muscle tone normal throughout Assessment & Plan Assessment/Plan (1) Lumbar stenosis: PLAN: Okay to discharge See discharge instructions
[2023-04-01] MEDS: Cefazolin 2 GM in 0.9% Normal Saline (100mL Bag) 100 ML IV (07:28)
--- NOTE | 2023-04-01 07:30 | RAD_ITS ---
STUDY: X-RAY - LUMBAR SPINE REASON FOR EXAM: Male, 62 years old. PAIN TECHNIQUE: One fluoroscopic view(s) of the lumbar spine were obtained. COMPARISON: None FINDINGS: Single fluoroscopic image demonstrating a hemostat marking of level, in the lower lumbar spine. RAD/Lumbar Spine 2 or 3 Views IMPRESSION: Operative marker at the level of the lower lumbar spine approximately at the level of L3-L4. Electronically Signed: Harika Lindsay MD at 6:32 EST Reading Location ID and State: [facility] / [place] Tel , Service support ,
[2023-04-01] MEDS: THROMBIN (RECOMBINANT) 20,000 UNIT VIAL 20000 UNIT TOPICAL (08:04)
[2023-04-01] MEDS: Bupivacaine 0.25% 30 ML Vial (09:00)
--- NOTE | 2023-04-01 13:29 | SUR.PHASEI ---
SPOKE WITH DR. SALAZAR REGARDING PATIENT CONTINUING NEED FOR OXYGEN. REQUIRING 2L PER NC TO KEEP SAT ABOVE 92%. WILL SPEAK WITH DR. ONEILL ABOUT PATIENT'S PLAN OF CARE. THE PATIENT CONTINUES TO DENY ANY SOB.
--- NOTE | 2023-04-01 14:15 | RAD_ITS ---
STUDY: X-RAY CHEST REASON FOR EXAM: Male, 62 years old. Postoperative hypoxia. TECHNIQUE: AP and lateral views of the chest. COMPARISON: Comparison is made with prior study March 26, 2023. FINDINGS: EKG electrodes are seen. Increased markings in the right middle lobe as well as in the lingular segment of the left upper lobe suggestive of atelectatic changes. There is no demonstrated pleural abnormality. Normal size heart. Normal mediastinum and tyler. Normal visualized pulmonary arteries. Normal visualized aortic arch and descending thoracic aorta. Normal visualized thoracic spine. Normal visualized ribs, clavicles, and shoulders. There is no demonstrated abnormality of the visualized soft tissue structures of the upper abdomen. RAD/Chest PA and Lateral IMPRESSION: Increased markings are seen in the right middle lobe and lingular segment of the left upper lobe suggestive of postoperative atelectatic changes. Electronically Signed: Jb Paredes MD at 14:54 EST ,
--- NOTE | 2023-04-01 15:24 | PCM.PN.HOSP ---
Reason for Visit Reason for Visit: Diagnoses Spinal stenosis, lumbar region without neurogenic claudication (04/01/23) Encounter for other preprocedural examination (04/01/23) Subjective Subjective Patient is in the PACU and notes the discomfort to the lumbar spine is more throbbing aching and rates it 6-7 out of 10 in severity with no shooting pains down his legs or significant paresthesias. He also remains on 2 L nasal cannula and states that he likely has underlying sleep apnea but is not been formally tested and has had issues over the last 2 surgeries with anesthetics with mild hypoxia falling and need for supplemental oxygen is short-lived. Patient denies fevers, chills, nausea, emesis, abdominal pain, chest pain or dyspnea. Objective Data Objective Data Vital Signs: Vital Signs Temp Pulse Resp BP Pulse Ox O2 Del Method O2 Flow Rate 97.8 F 91 16 113/77 96 Nasal Cannula 2 04/01/23 09:20 04/01/23 15:00 04/01/23 15:00 04/01/23 15:00 04/01/23 15:00 04/01/23 15:00 04/01/23 15:00 Oxygen Flow Rate (L/min) 2 Oxygen Delivery Method Nasal Cannula Weight: 189 lb 9.561 oz Body Mass Index (BMI) 30.6 Intake & Output: Intake and Output for Last 24 Hours 03/30/23 03/31/23 04/01/23 23:59 23:59 23:59 Intake Total 1110 / 1110 Output Total 550 / 550 Balance 560 / 560 Lab / Micro Data 03/26/23 07:12 03/26/23 07:12 Radiography Diagnostic Testing: Radiology Impression Chest X-Ray 04/01/23 14:15 IMPRESSION: Increased markings are seen in the right middle lobe and lingular segment of the left upper lobe suggestive of postoperative atelectatic changes. Electronically Signed: Jb Paredes MD at 14:54 EST , Physical Exam Narrative Physical Examination: General: Awake, alert, oriented x 3 and cooperative, seated upright in the PACU bed, no acute distress but does report ongoing lumbar back pain Skin: Normal color, normal turgor, no icterus, no cyanosis except for recent MR with lumbar dressings in place with no drainage. HEENT: AT/NC, EOMI, PERRLA, mildly dry MM, notably thickened neck with a simon. Lungs: CTA bilaterally, moderate effort, mild decrease BL bases, no rales, ronchi or wheezing. Heart: Regular rate and rhythm; no gallop, rub audible. Abdomen: Soft, obese, NTTP, ND, hyperactive BS, no HSM. Extremities: No cyanosis, clubbing, or edema. Neurological: Patient awake, alert, oriented as noted, cognitive function intact; pupils equally reactive to light and accommodation, cranial nerves grossly normal, moving all 4 extremities however expected limitation given recent lumbar back surgery, strength accordingly moderately to severely globally decreased. Psychiatric: Affect appears comfortable despite rated pain as noted, no acute evidence of depressive or anxiety feelings. Assessment & Plan Assessment/Plan (1) Lumbar stenosis: PLAN: Plan The patient is a 62 y/o M w/ PMHx: Anxiety and Depression, CKD stage III unclear subtype per chart history however GFR trending more consistent with CKD stage II, Migraine headaches, Former tobacco use now daily cannabis smoking, Fibromyalgia, HTN, HLD, IBS, Chronic exertional dyspnea, Allergic rhinitis, BPH who presents to the [facility] on 04/01/23 history of persistent lumbar back pain with radiculopathy with lumbar stenosis/L4-5 spondylolisthesis as well as disc herniation L4-5 on the right presenting for L4 laminectomy, bilateral L4-5 foraminotomies, right L4-[address] Feldman. #1. Chronic lumbar back pain with radiculopathy with lumbar stenosis and L4-5 spondylosis as well as disc herniation L4-5 on the right: Failed conservative therapies and treatments, admitted per Dr. Feldman for L4 laminectomy, bilateral L4-5 foraminotomies, right L4-5 discectomy, post-operative pain management, bowel regimen. Given pain uncontrolled in the PACU will add oral and IV narcotic regimen, as needed Tylenol, low dose gabapentin but will defer to primary service preference. #2. Perioperative Hypoxia, mild: Patient unable to wean from 2L NC, noted history of similar prior with surgery x 2, possibly component of anesthetics, pain medication as well as suspected underlying ДМИТРИЙ in addition to possibly underlying lung disease with history of tobacco use transition to now heavy cannabis smoke usage. We will continue oxygen supplementation with wean as possible to room air, will add ATC budesonide therapy and have as needed albuterol, encourage head of bed and aggressive I-S #3. Hypertension: Continue home regimen including amlodipine, PRN hydralazine. #4. Hyperlipidemia: Not on regimen, defer to outpatient. #5. Anxiety and depression: We will continue patient on venlafaxine regimen. #6. Chronic allergic rhinitis: We will continue patient home loratadine regimen. #7. Suspected ДМИТРИЙ: Discussed with patient and based on his description do suspect likely ДМИТРИЙ, encouraged outpatient assessment, will order trending pulse oximeter. #8. Heavy daily cannabis usage, smokes: Given history of bronchitis as well as exertional dyspnea complaints that been chronic encouraged him to subside and may benefit from outpatient follow-up PFTs. #9. Chronic Kidney Disease Stage III Per chart record however GFR trending from 11/13/2021 through 03/26/2023 with GFR greater than 60 more consistent with stage II: Most recently noted labs included 03/26/2023 BUN/Cr 23/1.23, baseline renal function more recently. 0.9-1.2. #10. Former cigarette tobacco use: Encourage continued tobacco cessation. #11. Obesity: Weight loss and lifestyle changes encouraged. #12. BPH: Not on regimen, if any issues with urinary retention may consider addition of Flomax. #13. DVT prophylaxis: SCDs, chemoprophylaxis per surgery discretion given recent OR. Charges/Coding Visit Charges Inpatient E&M: 55920 Subs Hosp L3
[2023-04-01] MEDS: oxyCODONE 5 MG Tablet PO ×2 (16:57→20:58)
[2023-04-01] MEDS: Morphine 4 MG/ML Syringe IV (19:33)
[2023-04-01] MEDS: Budesonide Respules 0.5 MG/2 ML AMPUL.NEB. INHALATION (20:00)
[2023-04-02 01:19] VITALS: BP 159/73; PULSE 95; RESP 18; TEMP 36.4; O2SAT 95
[2023-04-02] MEDS: oxyCODONE 5 MG Tablet PO ×3 (01:22→10:04)
[2023-04-02 04:26] VITALS: BMI 30.4
[2023-04-02 05:40] VITALS: BP 159/90; PULSE 100; RESP 16; TEMP 36.6; O2SAT 93
[2023-04-02 05:56] LABS: Absolute Lymphocyte Count 1.22 X10^3/uL (0.83-4.51); Absolute Neutrophil Count 11.5 X10^3/uL (2.0-7.7); Basophil# 0.01 X10^3/uL; Basophil% 0.1 % (0-1); Hematocrit 42.7 % (40-54); Lymphocyte # 1.22 X10^3/ul (0.83-4.51); Lymphocyte % 8.8 % (19-41); Mean Corp Hgb Conc 32.8 g/dL (32-36); Mean Corpuscular Hgb 30.2 pg (27.0-32.0); Mean Platelet Vol. 9.6 fl (6.2-12.0); Monocyte% 7.9 % (0-10); NRBC Flagged by Analyzer 0 % (0-5); Neutrophil # 11.53 X10^3/uL (2.7-7.7); Neutrophil % 82.8 % (47-70); Platelet Count 298 K/mm3 (150-450); RBC Distribution Width CV 12.2 % (11.6-14.6); RBC Distribution Width SD 41.2 fl (35.1-43.9); Red Blood Count 4.64 M/mm3 (4.6-6.2); White Blood Count 13.9 K/mm3 (4.4-11.0)
[2023-04-02 06:19] LABS: ALB/GLOB Ratio 0.9 RATIO (0.9-2.4); AST(SGOT) 17 U/L (15-37); Alanine Aminotransfer ALT/SGPT 30 U/L (16-61); Albumin, Serum 3.6 g/dL (3.2-5.0); Alkaline Phosphatase 79 U/L (45-117); Anion Gap 5 (5-15); BUN 20 mg/dL (7-18); BUN/Creat Ratio 17.5 RATIO (10-20); Calcium,Total 8.1 mg/dL (8.5-10.1); Chloride 105 mmol/L (98-107); Creatinine, Serum 1.14 mg/dL (0.70-1.30); EST Glomerular Filtration Rate 70 mL/min (>60); Est Glom Filt Rate - Afr Amer 84 mL/min (>60); Estimated Creatinine Clearance 62.18 ml/min; Globulin 3.9 g/dL (2.2-4.2); Glucose 120 mg/dL (74-106); Potassium 4.1 mmol/L (3.5-5.1); Protein, Total 7.5 g/dL (6.4-8.2); Sodium Level 140 mmol/L (136-145)
[2023-04-02 07:05] VITALS: PULSE 85; RESP 16; O2SAT 95
[2023-04-02] MEDS: Budesonide Respules 0.5 MG/2 ML AMPUL.NEB. INHALATION (07:05)
--- NOTE | 2023-04-02 07:30 | PCM.DC.SUM ---
Providers Date of Admission: 04/01/23 Primary Care Physician: Dr. Jayy Araya MD Consultations 04/01/23 15:17 Consult: Hospitalist Routine Consulting Provider: Trina Pitt Reason for Consult: hypoxia EMERGENT Consult: No MD Notified: Yes Date Notified: 04/01/23 Time Notified: 16:37 Method of Notification: Text Reason For Visit: lumbar 4 laminectomy right lumbar 4 Diagnosis Discharge Diagnosis (1) Lumbar stenosis: Status: Acute Code(s): M48.061 - Spinal stenosis, lumbar region without neurogenic claudication Plan: Okay to discharge See discharge instructions Medications at Discharge Home Medications amlodipine 10 mg tablet 10 mg PO DAILY #90 tabs 04/24/22 venlafaxine 150 mg capsule,extended release 24 hr 150 mg PO DAILY #90 caps 10/26/22 loratadine 10 mg tablet (Claritin) 10 mg PO DAILY 03/25/23 hydrocodone-acetaminophen 5-325mg 5mg-325mg 1 tab PO Q6H 7 days #28 tabs 04/01/23 Hospital Course Operations - (L4 laminectomy right L4-5 discectomy) Summary of Care Provided Minutes Spent on Discharge: 15 Hospital Course: The patient is a 62-year-old male who underwent L4 laminectomy, right L4-5 discectomy on 04/01/2023. He was subsequently admitted for observation. The hospitalist was consulted for medical management. He progressed well. His pain was controlled and he was mobilizing well. He did have an episode of low O2 postop, which resolved. No other significant medical issues were reported. He was subsequently discharged home on 04/02/2023 to follow-up with Dr. Feldman in 3 weeks. It was recommended he follow-up with his primary care physician secondary to low O2 as he may be a candidate for home oxygen Physical Exam Const alert, oriented x3 and no apparent distress General Appearance: cooperative, comfortable and well kempt Neck full ROM General: normal visual inspection Chest inspection of chest normal and palpation of chest normal Resp normal respiratory effort and normal air movement Effort and Inspection: able to speak in complete sentences Cardio regular rate and peripheral pulses 2+ throughout GI soft to palpation, non-tender and non-distended Back/Spine Back/Spine Narrative: Dressing clean dry and intact. Incision well approximated with interrupted sutures in place. No tenderness erythema drainage or fluctuance Cervical Spine: cervical ROM normal Thoracic Spine / Upper Back: normal to inspection Lumbar Spine / Lower Back: normal to inspection Extremity normal to inspection, full ROM, normal capillary refill, no clubbing, cyanosis or edema and no calf tenderness Skin no rashes or lesions noted General Skin Exam: no breakdown Neuro oriented x3, CN's II-XII intact bilaterally, moves all extremities, no focal motor deficits, no sensory deficits noted and deep tendon reflexes 2+ bilaterally Motor Exam: strength 5/5 throughout and muscle tone normal throughout Weight / BMI Weight Weight: 189 lb 9.561 oz Body Mass Index (BMI) 30.4 ABG / Lab / Microbiology Data 04/02/23 05:40 04/02/23 05:40 Laboratory: Laboratory Results - last 24 hr 04/02/23 05:40: WBC 13.9 H, RBC 4.64, Hgb 14.0, Hct 42.7, MCV 92.0, MCH 30.2, MCHC 32.8, RDW Std Deviation 41.2, RDW Coeff of Oumar 12.2, Plt Count 298, MPV 9.6, Immature Gran % (Auto) 0.400, Neut % (Auto) 82.8 H, Lymph % (Auto) 8.8 L, [place] % (Auto) 7.9, Eos % (Auto) 0.0, Baso % (Auto) 0.1, Absolute Neuts (auto) 11.5 H, Absolute Lymphs (auto) 1.22, Nucleated RBC % 0, Sodium 140, Potassium 4.1, Chloride 105, Carbon Dioxide 30.0, Anion Gap 5, BUN 20 H, Creatinine 1.14, Estim Creat Clear Calc 62.18, Est GFR (MDRD) Af Amer 84, Est GFR (MDRD) Non-Af 70, BUN/Creatinine Ratio 17.5, Glucose 120 H, Calcium 8.1 L, Total Bilirubin 0.40, AST 17, ALT 30, Alkaline Phosphatase 79, Total Protein 7.5, Albumin 3.6, Globulin 3.9, Albumin/Globulin Ratio 0.9 Radiography Diagnostic Testing: Radiology Impression Chest X-Ray 04/01/23 14:15 IMPRESSION: Increased markings are seen in the right middle lobe and lingular segment of the left upper lobe suggestive of postoperative atelectatic changes. Electronically Signed: Jb Paredes MD at 14:54 EST , D/C Instructions Discharge Diet: No restrictions Weight Bearing Status: Weight bearing as tolerated Additional Activity Instructions: No repetitive bending twisting or lifting greater than 5 pounds. Call your doctor if your incision/area has: Continuous Slow Oozing, Sudden Increased Bleeding, Increased Pain/ Swelling, Increased Redness, Foul Smelling Discharge and Swelling at the incision site Call your doctor if you observe: Fever of 101 or Higher, Coldness, Increased Pain, Numbness or Tingling, Change in Color, Inability to urinate, Inability to have a bowel movement, Using more than 1 pad per hour, Shortness of breath, Dizziness, Fainting spells, Swelling in the ankles, Chest pain, Prolonged hiccupping, Increased palpitations (irregular heartbeat), Calf discomfort and Uncontrolled pain Cleanse incision/area with: Do not get Incision Wet and Keep Dressing Clean & Dry Additional Dressing/Incision Instructions: Change dressing daily with iodine gauze and tape. Use waterproof dressing to shower Please Follow Up With: Clayton Feldman DO When: 3 weeks Meaningful Use Info Meaningful Use Diagnoses (Choose all that apply): None applicable Discharge Plan Admission Admit Date/Time: 04/01/23 16:13 Attending Provider: Clyaton Feldman Primary Care Provider: Jayy Araya Consulting Providers: Giovani Issa Instructions Additional Instructions / Restrictions: 1. During your procedure, you received sedation through your IV. Please follow these instructions for the next 24 hours: Do not drive a motor vehicle, do not drink any alcoholic beverages, and do not sign any legal documents or make personal or business decisions. A responsible adult should stay with you at least 6 hours after the procedure. 2. Keep your surgical site/incision clean and the dressing dry and intact. Change dressing daily with iodine gauze and tape. Use waterproof dressing to shower. You may use an ice pack at the surgical site to reduce any swelling or discomfort. 3. Monitor the incision site for any signs or symptoms of infection. Watch for redness, excessive swelling or drainage, or continued pain at the incision site after 3 days. Contact your physician immediately for a fever, chills or a temperature of 101.5? F or greater. 4. Take your medication exactly as prescribed by your physician. Do not attempt to wean yourself off any of your medications even though your pain is improving. This process needs to be carefully monitored by your doctor. Take any antibiotics prescribed exactly as directed and until they are gone. 5. Avoid stretching, bending, pulling, twisting or any sudden movements. Do not bend or twist at the waist. 6. No lifting greater than 5 pounds. . 7. Do not operate a motor vehicle, equipment or a power tool while taking pain medication 8. Do not have any manipulation done by a chiropractor or any other physician without first consulting with the physician who placed your spinal cord stimulator. 9. Please contact our office if you are even scheduled for a CT scan or an MRI. 10. Please call us if you have any questions, problems or concerns. Discharge Orders/Prescriptions Prescriptions: New hydrocodone-acetaminophen 5-325 mg tablet 1 tab PO Q6H 7 Days Qty: 28 0RF Continued amlodipine 10 mg tablet 10 mg PO DAILY Qty: 90 3RF loratadine [Claritin] 10 mg tablet 10 mg PO DAILY venlafaxine 150 mg capsule,extended release 24hr 150 mg PO DAILY Qty: 90 1RF Referrals / Follow Up: Jayy Araya MD [Primary Care Provider] - Clayton Feldman DO [Med Staff - Active Staff] - Disposition Disposition (needs filled in before D/C Order can be placed): Home, Self Care
[2023-04-02 09:17] VITALS: BP 144/93; PULSE 98; RESP 16; TEMP 36.8; O2SAT 94
--- NOTE | 2023-04-02 09:40 | CASEMGMT ---
MARCOS BALDERRAMA Assessment: Face to Face with pt for initial transition planning/care coordination assessment. RN CONCHIS introduced self and role at [facility], pt voices understanding and consents to assessment. Pt is A&O x4 and answers all questions appropriately at this time. Pt sitting up in bed in no distress on RA. Care providers, pharmacy, and demographics verified/updated. Admitting Dx: lumbar stenosis PCP:Marshal Specialists:nilton Feldman Pharmacy: [facility] Insurance: [facility] Dual, [facility] Community Plan Prescription Benefit: yes LNOK: Elda Cain, Living Arrangements: Pt lives with in a mobile home with 3-4 steps with the rail. Pt reports he is I in ADL's and denies concerns at home. Transportation: Pt drives self and denies concerns with transportation. Pt can transport pt until he can drive again. DME:FWW, shower chair, walk in shower, cane HHC/SNF: Denies hx of Pt states no concerns with going home at time of dc. He states he has not been seen by therapy yet. Pt states no further concerns/needs. CM to follow. Advised pt to ask CM if any further question/concerns/needs arise, voices understanding. Pt Goal: Home Plan: Home with assistance
--- NOTE | 2023-04-02 09:45 | PHA.DC.MC.R ---
Pharmacy [facility] has performed discharge medication reconciliation and counseling for this patient. The patient was counseled on the following discharge medications and changes in medications for homegoing were reviewed. 1. NORCO The Reason for Use, instructions for use, and potential side effects were reviewed for all new medications. The patient's questions regarding all of their medications were answered. The patient was able to verbally demonstrate an understanding of their discharge medications. The patient's discharge medication list was reviewed for discrepancies and discrepancies were resolved. The patient was counselled by Adrián Tamayo PharmD Candidate Medications at Discharge Home Medications amlodipine 10 mg tablet 10 mg PO DAILY #90 tabs 04/24/22 venlafaxine 150 mg capsule,extended release 24 hr 150 mg PO DAILY #90 caps 10/26/22 loratadine 10 mg tablet (Claritin) 10 mg PO DAILY 03/25/23 hydrocodone-acetaminophen 5-325mg 5mg-325mg 1 tab PO Q6H 7 days #28 tabs 04/01/23
[2023-04-02 10:00] VITALS: O2SAT 94
[2023-04-02] MEDS: Venlafaxine XR 150 MG Capsule PO (10:04)
[2023-04-02] MEDS: Loratadine 10 MG Tablet PO (10:05)
[2023-04-02] MEDS: amLODIPine 10 MG Tablet PO (10:05)
--- NOTE | 2023-04-02 11:53 | PN.HOSP_ITS ---
Reason for Visit Reason for Visit: Diagnoses Spinal stenosis, lumbar region without neurogenic claudication (04/01/23) Encounter for other preprocedural examination (04/01/23) Subjective Subjective Feels well. No shortness of breath. Had similar but more pronounced issues in the past. Objective Data Objective Data Vital Signs: Vital Signs Temp Pulse Resp BP Pulse Ox O2 Del Method O2 Flow Rate 36.8 C 98 16 144/93 H 94 Room Air 2 04/02/23 09:17 04/02/23 09:17 04/02/23 09:17 04/02/23 09:17 04/02/23 10:00 04/02/23 10:00 04/01/23 15:30 FiO2 21 04/01/23 23:40 Oxygen Flow Rate (L/min) 2 Oxygen Delivery Method Room Air Weight: 86 kg Body Mass Index (BMI) 30.4 Intake & Output: Intake and Output for Last 24 Hours 03/31/23 04/01/23 04/02/23 23:59 23:59 23:59 Intake Total 1160.75 / 1160.75 1000 / 1000 Output Total 1750 / 1750 Balance -589.25 / -589.25 1000 / 1000 Lab / Micro Data 04/02/23 05:40 04/02/23 05:40 Labs: Laboratory Results - last 24 hr 04/02/23 05:40: WBC 13.9 H, RBC 4.64, Hgb 14.0, Hct 42.7, MCV 92.0, MCH 30.2, MCHC 32.8, RDW Std Deviation 41.2, RDW Coeff of Oumar 12.2, Plt Count 298, MPV 9.6, Immature Gran % (Auto) 0.400, Neut % (Auto) 82.8 H, Lymph % (Auto) 8.8 L, [place] % (Auto) 7.9, Eos % (Auto) 0.0, Baso % (Auto) 0.1, Absolute Neuts (auto) 11.5 H, Absolute Lymphs (auto) 1.22, Nucleated RBC % 0, Sodium 140, Potassium 4.1, Chloride 105, Carbon Dioxide 30.0, Anion Gap 5, BUN 20 H, Creatinine 1.14, Estim Creat Clear Calc 62.18, Est GFR (MDRD) Af Amer 84, Est GFR (MDRD) Non-Af 70, BUN/Creatinine Ratio 17.5, Glucose 120 H, Calcium 8.1 L, Total Bilirubin 0.40, AST 17, ALT 30, Alkaline Phosphatase 79, Total Protein 7.5, Albumin 3.6, Globulin 3.9, Albumin/Globulin Ratio 0.9 Radiography Diagnostic Testing: Radiology Impression Chest X-Ray 04/01/23 14:15 IMPRESSION: Increased markings are seen in the right middle lobe and lingular segment of the left upper lobe suggestive of postoperative atelectatic changes. Electronically Signed: Jb Paredes MD at 14:54 EST , Physical Exam Const alert and no apparent distress Resp normal respiratory effort, no retractions, no use of accessory muscles and clear to auscultation bilaterally Cardio regular rate, regular rhythm, S1 normal heart sound and S2 normal heart sound Extremity normal to inspection Assessment & Plan Assessment/Plan (1) Lumbar stenosis: PLAN: Plan 1. post op hypoxia. resolved. likely post anesthesia. Weaned off oxygen. No additional work up at this time. Medically stable for discharge. Charges/Coding Visit Charges Inpatient E&M: 21449 Subs Hosp L1
== END 2023-04-02 10:45 | disposition home or self-care (01) ==
LOC: SDC 15:40 → MS3 17:41
PROVIDERS: Family Medicine; Admitting Provider Orthopaedic Surgery; PCP Internal Medicine; Referring Provider Orthopaedic Surgery; Visit Provider Orthopaedic Surgery
PROC: (CPT 63030; principal; 2023-04-01 07:00)
DX: M48.061 Spinal stenosis, lumbar region without neurogenic claudication (principal); N18.30 Chronic kidney disease, stage 3 unspecified; R09.02 Hypoxemia; M47.816 Spondylosis without myelopathy or radiculopathy, lumbar region; F17.210 Nicotine dependence, cigarettes, uncomplicated; M51.26 Other intervertebral disc displacement, lumbar region; E78.5 Hyperlipidemia, unspecified; I12.9 Hypertensive chronic kidney disease with stage 1 through stage 4 chronic kidney disease, or unspecified chronic kidney disease; Z79.899 Other long term (current) drug therapy; K21.9 Gastro-esophageal reflux disease without esophagitis; M79.7 Fibromyalgia; M50.321 Other cervical disc degeneration at C4-C5 level
CPT/HCPCS: 63047; 00630; 36415; 71046; 72100; 76000; 80048; 80053; 85025; 85610; 85730; 93005; 94640; 94668; 94762; 96374; 99221; 99252; J7120; G0378; G0463; J2405

== ENCOUNTER → 2023-04-30 | Outpatient (CLI) | payer MEDICARE, MEDICAID, SELFPAY ==
[2023-04-30 12:35] LABS: T4 Free Direct 0.78 ng/dL (0.76-1.46)
[2023-05-03 13:08] LABS: Deamidated Gliadin IgA 30 units (0-19); Deamidated Gliadin IgG 3 units (0-19); Endomysial Antibody IgA Negative (Negative); Immunoglobulin A 309 mg/dL (90-386); t-Transglutaminase IgA <2 U/mL (0-3)
== END | disposition home or self-care (01) ==
LOC: BIMLAB 10:31
PROVIDERS: PCP Internal Medicine; Referring Provider Internal Medicine; Visit Provider Internal Medicine
DX: K52.9 Noninfective gastroenteritis and colitis, unspecified (principal); Z79.899 Other long term (current) drug therapy
CPT/HCPCS: 36415; 82784; 83516; 84439; 84443; 86255

== ENCOUNTER → 2023-07-13 | Outpatient (CLI) | payer OTHER, SELFPAY ==
[2023-07-13 18:07] LABS: Hematocrit 41.7 % (40-54); Hemoglobin 13.8 g/dL (13.0-16.5); Mean Corp Hgb Conc 33.1 g/dL (32-36); Mean Corpuscular Hgb 30.2 pg (27.0-32.0); Mean Corpuscular Volume 91.2 fL (80-94); Mean Platelet Vol. 9.7 fl (6.2-12.0); Platelet Count 307 K/mm3 (150-450); RBC Distribution Width CV 12.9 % (11.6-14.6); RBC Distribution Width SD 42.5 fl (35.1-43.9); Red Blood Count 4.57 M/mm3 (4.6-6.2)
[2023-07-13 18:27] LABS: Erythrocyte Sedimentation Rate 9 mm/hr (0-20)
[2023-07-13 18:33] LABS: CRP 6.44 mg/L (0.0-3.0)
--- OUTSIDE RECORDS SUMMARY | 2023-07-14 00:24 | XMS RPT_ITS | CCD ---
Author Name Unknown Address [address] [place] [address] Organization [facility] Care Team Providers Care Implementation Technician Name Role Phone PATEL ANDRADE Admitting Unavailable PATEL ANDRADE Attending Unavailable Yovani Florentino Primary Care Unavailable JENNIFER ARAYA MD Primary Care Physician [phone] Jennifer Araya MD Primary Care Provider [phone] DR GAIL AKERS DO Attending Unavailable RADHA QUEEN Referring Unavai RADHA Rodríguez Admitting Unavai CLAYTON Sandoval DO Consulting JENNIFER Acharya MD Primary Care UnavailJENNIFER Domínguez MD Primary Care Unavailab CLAYTON Ha DO Attending JENNIFER Acharya MD Primary Care Unavailab CLAYTON Ha DO Attending Unavailable OMAR ALANIZ Consulting JENNIFER Marcano MD Primary Care Unavailab CLAYTON Ha DO Attending Unavailable CLAYTON ONEILL DO Admitting Unavailable EBER RASHEED MD Attending Unavail JENNIFER Merritt MD Primary Care Unavailab EBER White MD Attending Unavail JENNIFER Merritt MD Primary Care UnavailJENNIFER Domínguez MD Primary Care Unavailab DR REYNOLD Lares DO Attending Unavailable JENNIFER ARAYA MD Primary Care UnavailCLAYTON Montanez DO Attending Unavailable CLAYTON ONEILL DO Attending Unavailable JENNIFER ARAYA MD Primary Care Unavailab le Allergies Allergy Classification Reported Allergen(s) Allergy Type Date of Onset Reaction(s) Facility (13 sources) Codeine; Translations: [CODEINE] Drug Allergy 5 Diarrhea, Vomiting [facility] (11 sources) Morphine; Translations: [morphine] Drug Allergy 9 Rash [facility] (1 source) Vancomycin; Translations: [vancomycin] Drug Allergy [facility] Medications Current Medications Medication Drug Class(es) Dates Sig (Normalized) Sig (Original) acetaminophen 325 mg / HYDROcodone bitartrate 5 mg oral tablet (4 sources) Opioid Agonist Start: 10-17-2022 End: 10-20-2022 take 1 tablet by mouth three times daily [place] 325- 5 mg oral tablet Dose = 1 tab(s), Oral, TID, X 3 day(s), # 9 tab(s), 0 Refill(s), Kidney stone, 79 Start Date: 10/17/22 Stop Date: 10/20/22 Status: Ordered Completed/Discontinued Medications Medication Drug Class(es) Dates Sig (Normalized) Sig (Original) esomeprazole 40 mg delayed release oral capsule (5 sources) Proton Pump Inhibitor Start: 04-07-2021 take 1 capsule by mouth 1 hour(s) before mealtime esomeprazole (NEXIUM) 40 mg capsule Indications: Gastroesophageal reflux disease, unspecified whether esophagitis present , Epigastric pain Take 1 capsule by mouth 1 hour before a meal 30 capsule 3 07/07/2021 Active Problems Active Problems Problem Classification Problem Date Documented Da te Episodic/Chronic Anxiety disorders (4 sources) Anxiety; Translations: [Anxiety disorder, unspecified] Onset: 1 11-10-2010 Chronic Calculus of urinary tract (1 source) Kidney stone; Translations: [Calculus of kidney] Onset: 3 Episodic Chronic kidney disease (10 sources) Chronic kidney disease stage 3; Translations: [Chronic kidney disease, stage 3 unspecified] Onset: 3 04-07-2021 Chronic Diseases of white blood cells (1 source) Leukocytosis; Translations: [Elevated white blood cell count, unspecified] Onset: 3 Chronic E Codes: Fall (1 source) Fall; Translations: [Unspecified fall, initial encounter] Onset: 3 Episodic E Codes: Natural/environment (1 source) Bite of nonvenomous arthropod; Translations: [Bitten or stung by nonvenomous insect and other nonvenomous arthropods, initial encounter] Onset: 3 Episodic Esophageal disorders (17 sources) Gastroesophageal reflux disease; Translations: [Gastro-esophageal reflux disease without esophagitis] Onset: 1 03-15-2019 Chronic Essential hypertension (3 sources) Essential hypertension; Translations: [Essential (primary) hypertension] Onset: 3 Chronic Gastrointestinal hemorrhage (12 sources) Hematochezia; Translations: [Melena] Onset: 2 09-03-2011 Episodic Hyperplasia of prostate (4 sources) Benign prostatic hyperplasia; Translations: [Benign prostatic hyperplasia without lower urinary tract symptoms] Onset: 9 10-17-2018 Chronic Mood disorders (4 sources) Major depression, single episode; Translations: [Major depressive disorder, single episode, unspecified] Onset: 8 05-25-2017 Chronic Mood disorders (2 sources) Major depressive disorder, single episode, unspecified Onset: 8 Nonspecific chest pain (1 source) Chest pain; Translations: [Other chest pain] Onset: 2 Episodic Nutritional deficiencies (4 sources) Malnutrition (calorie); Translations: [Moderate protein-calorie malnutrition] Onset: 8 05-25-2017 Chronic Other gastrointestinal disorders (4 sources) Irritable bowel syndrome; Translations: [Irritable bowel syndrome without diarrhea] Onset: 6 05-25-2017 Chronic Other non-traumatic joint disorders (1 source) Shoulder joint pain; Translations: [Pain in unspecified shoulder] Onset: 3 Episodic Other non-traumatic joint disorders (1 source) Joint pain; Translations: [Pain in unspecified joint] Onset: 3 Episodic Residual codes; unclassified (8 sources) Chronic back pain 03-15-2019 Episodic Spondylosis; intervertebral disc disorders; other back problems (20 sources) Cervical spondylosis without myelopathy; Translations: [Lumbar spondylosis] Onset: 2 04-07-2021 Chronic Spondylosis; intervertebral disc disorders; other back problems (20 sources) Chronic neck pain; Translations: [Thoracic back pain] Onset: 1 10-11-2014 Episodic Past or Other Problems Problem Classification Problem Date Documented Da te Episodic/Chronic Hemorrhoids (8 sources) Internal hemorrhoids; Translations: [Other hemorrhoids] Onset: 07-23-2012 07-23-2012 Episodic Other connective tissue disease (5 sources) Fibromyalgia; Translations: [Fibromyalgia] Onset: 09-06-2015 Episodic Other gastrointestinal disorders (4 sources) Dysphagia; Translations: [Dysphagia, unspecified] Onset: 10-17-2018 10-17-2018 Episodic Sprains and strains (4 sources) Strain of neck muscle; Translations: [Strain of muscle, fascia and tendon at neck level, initial encounter] Onset: 07-12-2013 07-12-2013 Episodic Substance-related disorders (4 sources) Marijuana user; Translations: [Cannabis use, unspecified, uncomplicated] Onset: 07-16-2015 05-25-2017 Episodic Results Test Name Value Interpretation Reference Range Facil ity Vital Signs Date Time Vital Sign Value Performing Clinician Faci lit 04-23-2023 15:30-0500 Body temperature 97.52 [degF] RADHA RAND APRN-EMPLOYMENT PROGRAM REPRESENTATIVE [facility] 04-23-2023 15:30-0500 Diastolic Blood Pressure Non-Invasive 84 mm[Hg] RADHA RAND APRN-EMPLOYMENT PROGRAM REPRESENTATIVE [facility] 04-23-2023 15:30-0500 Heart rate 91 /min RADHA RAND APRN-EMPLOYMENT PROGRAM REPRESENTATIVE [facility] 04-23-2023 15:30-0500 Reason For Taking VItal Signs RADHA RAND APRN-EMPLOYMENT PROGRAM REPRESENTATIVE [facility] 04-23-2023 15:30-0500 Respiratory rate 18 /min RADHA RAND APRN-EMPLOYMENT PROGRAM REPRESENTATIVE [facility] 04-23-2023 15:30-0500 Systolic Blood Pressure Non-Invasive 133 mm[Hg] RADHA KENNEN MACHINE SIGN WRITER-EMPLOYMENT PROGRAM REPRESENTATIVE [facility] 04-23-2023 11:39-0500 Body temperature 98.06 [degF] RADHA RAND MACHINE SIGN WRITER-EMPLOYMENT PROGRAM REPRESENTATIVE [facility] 04-23-2023 11:39-0500 Diastolic Blood Pressure Non-Invasive 86 mm[Hg] RADHA MCCULLOUGHJennifer MACHINE SIGN WRITER-EMPLOYMENT PROGRAM REPRESENTATIVE [facility] 04-23-2023 11:39-0500 Heart rate 89 /min RADHA RAND MACHINE SIGN WRITER-EMPLOYMENT PROGRAM REPRESENTATIVE [facility] 04-23-2023 11:39-0500 Reason For Taking VItal Signs RADHA MCCULLOUGHJennifer MACHINE SIGN WRITER-EMPLOYMENT PROGRAM REPRESENTATIVE [facility] 04-23-2023 11:39-0500 Respiratory rate 18 /min RADHA RAND MACHINE SIGN WRITER-EMPLOYMENT PROGRAM REPRESENTATIVE [facility] 04-23-2023 11:39-0500 Systolic Blood Pressure Non-Invasive 134 mm[Hg] RADHA RAND MACHINE SIGN WRITER-EMPLOYMENT PROGRAM REPRESENTATIVE [facility] 04-23-2023 06:45-0500 Body temperature 97.52 [degF] RADHA RAND MACHINE SIGN WRITER-EMPLOYMENT PROGRAM REPRESENTATIVE [facility] 04-23-2023 06:45-0500 Diastolic Blood Pressure Non-Invasive 81 mm[Hg] RADHA MCCULLOUGHJennifer MACHINE SIGN WRITER-EMPLOYMENT PROGRAM REPRESENTATIVE [facility] 04-23-2023 06:45-0500 Heart rate 83 /min RADHA MCCULLOUGHJennifer MACHINE SIGN WRITER-EMPLOYMENT PROGRAM REPRESENTATIVE [facility] 04-23-2023 06:45-0500 Reason For Taking VItal Signs RADHA MCCULLOUGHJennifer MACHINE SIGN WRITER-EMPLOYMENT PROGRAM REPRESENTATIVE [facility] 04-23-2023 06:45-0500 Respiratory rate 18 /min RADHA MCCULLOUGHN MACHINE SIGN WRITER-EMPLOYMENT PROGRAM REPRESENTATIVE [facility] 04-23-2023 06:45-0500 Systolic Blood Pressure Non-Invasive 139 mm[Hg] RADHA MCCULLOUGHN MACHINE SIGN WRITER-EMPLOYMENT PROGRAM REPRESENTATIVE [facility] 04-23-2023 02:10-0500 Heart rate 87 /min RADHA MCCULLOUGHN MACHINE SIGN WRITER-EMPLOYMENT PROGRAM REPRESENTATIVE [facility] 04-22-2023 23:06-0500 Heart rate 68 /min RADHAAILYN MCCULLOUGHN MACHINE SIGN WRITER-EMPLOYMENT PROGRAM REPRESENTATIVE [facility] 04-22-2023 20:18-0500 Heart rate 103 /min RADHAAILYN MCCULLOUGHN MACHINE SIGN WRITER-EMPLOYMENT PROGRAM REPRESENTATIVE [facility] 04-22-2023 14:31-0500 Heart rate 95 /min RADHA MCCULLOUGHN MACHINE SIGN WRITER-EMPLOYMENT PROGRAM REPRESENTATIVE [facility] 04-22-2023 14:12-0500 Body height 167.6 cm RADHAAILYN MCCULLOUGHN MACHINE SIGN WRITER-EMPLOYMENT PROGRAM REPRESENTATIVE [facility] 04-22-2023 14:12-0500 Body weight 85.9 kg RADHA MCCULLOUGHN MACHINE SIGN WRITER-EMPLOYMENT PROGRAM REPRESENTATIVE [facility] 04-22-2023 14:12-0500 Body weight 30.58 kg/m2 RADHAAILYN MCCULLOUGHN MACHINE SIGN WRITER-EMPLOYMENT PROGRAM REPRESENTATIVE [facility] 04-22-2023 08:40-0500 Blood Pressure Location RADHAAILYN MALDONADONEN MACHINE SIGN WRITER-EMPLOYMENT PROGRAM REPRESENTATIVE [facility] 04-22-2023 08:40-0500 Body weight 89.5 kg RADHA MCCULLOUGHN MACHINE SIGN WRITER-EMPLOYMENT PROGRAM REPRESENTATIVE [facility] 10-17-2022 05:16-[address] REYNOLD PETERSON DO [facility] 10-17-2022 05:16-0400 Body height [address] REYNOLD PETERSON DO [facility] 10-17-2022 05:16-0400 Body temperature 97.52 [degF] DR REYNOLD PETERSON DO [facility] 10-17-2022 05:16-0400 Body weight [address] REYNOLD PETERSON DO [facility] 10-17-2022 05:16-0400 Diastolic Blood Pressure Non-Invasive [address] REYNOLD PETERSON DO [facility] 10-17-2022 05:16-0400 Heart rate 96 /min DR REYNOLD PETERSON DO [facility] 10-17-2022 05:16-0400 Respiratory rate 20 /min DR REYNOLD PETERSON DO [facility] 10-17-2022 05:16-0400 Systolic Blood Pressure Non-Invasive [address] REYNOLD PETERSON DO [facility] 09-11-2022 09:44-0400 Body temperature 98.24 [degF] CLAYTON ONEILL DO [facility] 09-11-2022 09:44-0400 Diastolic Blood Pressure Non-Invasive 88 1 CLAYTON ONEILL DO [facility] 09-11-2022 09:44-0400 Heart rate 91 /min CLAYTON ONEILL DO [facility] 09-11-2022 09:44-0400 Reason For Taking VItal Signs CLAYTON ONEILL DO [facility] 09-11-2022 09:44-0400 Respiratory rate 16 /min CLAYTON ONEILL DO [facility] 09-11-2022 09:44-0400 Systolic Blood Pressure Non-Invasive 135 1 CLAYTON ONEILL DO [facility] 09-11-2022 07:24-0400 Body temperature 97.88 [degF] CLAYTON ONEILL DO [facility] 09-11-2022 07:24-0400 Diastolic Blood Pressure Non-Invasive 92 1 CLAYTON ONEILL DO [facility] 09-11-2022 07:24-0400 Heart rate 80 /min CLAYTON ONEILL DO [facility] 09-11-2022 07:24-0400 Reason For Taking VItal Signs CLAYTON ONEILL DO [facility] 09-11-2022 07:24-0400 Respiratory rate 18 /min CLAYTON ONEILL DO [facility] 09-11-2022 07:24-0400 Systolic Blood Pressure Non-Invasive 128 1 CLAYTON ONEILL DO [facility] 09-11-2022 05:28-0400 Diastolic Blood Pressure Non-Invasive 88 1 CLAYTON ONEILL DO [facility] 09-11-2022 05:28-0400 Systolic Blood Pressure Non-Invasive 127 1 CLAYTON ONEILL DO [facility] 09-11-2022 04:05-0400 Heart rate 93 /min CLAYTON ONEILL DO [facility] 09-11-2022 03:01-0400 Body temperature 97.7 [degF] CLAYTON ONEILL DO [facility] 09-11-2022 03:01-0400 Heart rate 99 /min CLAYTON ONEILL DO [facility] 09-11-2022 03:01-0400 Reason For Taking VItal Signs CLAYTON ONEILL DO [facility] 09-11-2022 03:01-0400 Respiratory rate 20 /min CLAYTON ONEILL DO [facility] 09-10-2022 19:16-0400 Heart rate 99 /min CLAYTON ONEILL DO [facility] 09-10-2022 17:12-0400 Heart rate 88 /min CLAYTON ONEILL DO [facility] 09-09-2022 12:17-0400 Body height 167.6 cm CLAYTON ONEILL DO [facility] 09-09-2022 12:17-0400 Body weight 83.5 kg CLAYTON ONEILL DO [facility] 09-09-2022 12:17-0400 Body weight 29.73 kg/m2 CLAYTON ONEILL DO [facility] 09-09-2022 10:00-0400 Body temperature 99.68 [degF] CLAYTON ONEILL DO [facility] 09-09-2022 09:55-0400 Respiratory Rate - Anes 10 br/min CLAYTON ONEILL DO [facility] 09-09-2022 09:50-0400 Respiratory Rate - Anes 11 br/min CLAYTON ONEILL DO [facility] 09-09-2022 09:45-0400 Respiratory Rate - Anes 20 br/min CLAYTON ONEILL DO [facility] 09-09-2022 09:20-0400 Body temperature 99.03 [degF] CLAYTON ONEILL DO [facility] 09-09-2022 09:15-0400 Body temperature 98.89 [degF] CLAYTON ONEILL DO [facility] 09-09-2022 09:10-0400 Body temperature 98.85 [degF] CLAYTON ONEILL DO [facility] 09-09-2022 06:23-0400 Body height 167.6 cm CLAYTON ONEILL DO [facility] 09-09-2022 06:23-0400 Body temperature 98.6 [degF] CLAYTON ONEILL DO [facility] 09-09-2022 06:23-0400 Body weight 83.5 kg CLAYTON ONEILL DO [facility] 09-09-2022 06:23-0400 Heart rate 106 /min CLAYTON ONEILL DO [facility] 08-28-2022 09:05-0400 Blood Pressure Location CLAYTON ONEILL DO [facility] 08-28-2022 09:05-0400 Blood Pressure Method CLAYTON ONEILL DO [facility] 08-28-2022 09:05-0400 Body height 167.6 cm CLAYTON ONEILL DO [facility] 08-28-2022 09:05-0400 Body weight 83.5 kg CLAYTON ONEILL DO [facility] 08-28-2022 09:05-0400 Body weight 29.73 kg/m2 CLAYTON ONEILL DO [facility] 08-28-2022 09:05-0400 Diastolic Blood Pressure Non-Invasive 82 1 CLAYTON ONEILL DO [facility] 08-28-2022 09:05-0400 Heart rate 88 /min CLAYTON ONEILL DO [facility] 08-28-2022 09:05-0400 Respiratory rate 18 /min CLAYTON ONEILL DO [facility] 08-28-2022 09:05-0400 Systolic Blood Pressure Non-Invasive 122 1 CLAYTON ONEILL DO [facility] 07-05-2022 03:16-0500 Body temperature 97.7 [degF] EBER RASHEED MD [facility] 07-05-2022 03:16-0500 Diastolic Blood Pressure Non-Invasive 82 1 EBER RASHEED MD [facility] 07-05-2022 03:16-0500 Heart rate 78 /min EBER RASHEED MD [facility] 07-05-2022 03:16-0500 Respiratory rate 18 /min EBER RASHEED MD [facility] 07-05-2022 03:16-0500 Systolic Blood Pressure Non-Invasive 135 1 EBER RASHEED MD [facility] 07-05-2022 01:30-0500 Diastolic Blood Pressure Non-Invasive 79 1 EBER RASHEED MD [facility] 07-05-2022 01:30-0500 Heart rate 86 /min EBER RASHEED MD [facility] 07-05-2022 01:30-0500 Respiratory rate 16 /min EBER RASHEED MD [facility] 07-05-2022 01:30-0500 Systolic Blood Pressure Non-Invasive 139 1 EBER RASHEED MD [facility] 07-04-2022 17:42-0500 Body temperature 98.78 [degF] EBER RASHEED MD [facility] 07-04-2022 17:42-0500 Body weight 85 kg EBER RASHEED MD [facility] 07-04-2022 17:42-0500 Diastolic Blood Pressure Non-Invasive 99 1 EBER RASHEED MD [facility] 07-04-2022 17:42-0500 Heart rate 102 /min EBER RASHEED MD [facility] 07-04-2022 17:42-0500 Respiratory rate 18 /min EBER RASHEED MD [facility] 07-04-2022 17:42-0500 Systolic Blood Pressure Non-Invasive 149 1 EBER RASHEED MD [facility] 06-14-2022 05:30-0500 Diastolic Blood Pressure Non-Invasive 82 1 EBER RASHEED MD [facility] 06-14-2022 05:30-0500 Heart rate 72 /min EBER RASHEED MD [facility] 06-14-2022 05:30-0500 Reason For Taking VItal Signs EBER RASHEED MD [facility] 06-14-2022 05:30-0500 Respiratory rate 16 /min EBER RASHEED MD [facility] 06-14-2022 05:30-0500 Systolic Blood Pressure Non-Invasive 124 1 EBER RASHEED MD [facility] 06-14-2022 05:00-0500 Diastolic Blood Pressure Non-Invasive 78 1 EBER RASHEED MD [facility] 06-14-2022 05:00-0500 Heart rate 80 /min EBER RASHEED MD [facility] 06-14-2022 05:00-0500 Respiratory rate 15 /min EBER RASHEED MD [facility] 06-14-2022 05:00-0500 Systolic Blood Pressure Non-Invasive 138 1 EBER RASHEED MD [facility] 06-14-2022 04:10-0500 Body temperature 97.7 [degF] EBER RASHEED MD [facility] 06-14-2022 04:10-0500 Diastolic Blood Pressure Non-Invasive 85 1 EBER RASHEED MD [facility] 06-14-2022 04:10-0500 Heart rate 85 /min EBER RASHEED MD [facility] 06-14-2022 04:10-0500 Respiratory rate 16 /min EBER RASHEED MD [facility] 06-14-2022 04:10-0500 Systolic Blood Pressure Non-Invasive 144 1 EBER RASHEED MD [facility] 07-12-2021 17:40-0500 Diastolic blood pressure 87 mm[Hg] BRADEN STONE MD [facility] 07-12-2021 17:40-0500 Heart rate 83 /min BRADEN STOEN MD [facility] 07-12-2021 17:40-0500 Respiratory rate 20 /min BRADEN STONE MD [facility] 07-12-2021 17:40-0500 Systolic blood pressure 127 mm[Hg] BRADEN STONE MD [facility] 07-12-2021 16:55-0500 Diastolic blood pressure 82 mm[Hg] BRADEN STONE MD [facility] 07-12-2021 16:55-0500 Heart rate 80 /min BRADEN STONE MD [facility] 07-12-2021 16:55-0500 Respiratory rate 18 /min BRADEN STONE MD [facility] 07-12-2021 16:55-0500 Systolic blood pressure 112 mm[Hg] BRADEN STONE MD [facility] 07-12-2021 16:21-0500 Diastolic blood pressure 86 mm[Hg] BRADEN STONE MD [facility] 07-12-2021 16:21-0500 Heart rate 80 /min BRADEN STONE MD [facility] 07-12-2021 16:21-0500 Respiratory rate 18 /min BRADEN STONE MD [facility] 07-12-2021 16:21-0500 Systolic blood pressure 120 mm[Hg] BRADEN STONE MD [facility] 07-12-2021 15:12-0500 Body temperature 97.88 [degF] BRADEN STONE MD [facility] 05-05-2021 08:05-0500 Diastolic Blood Pressure NBP 85 1 NORIS ELLIS MD [facility] 05-05-2021 08:05-0500 Heart rate 79 /min NORIS ELLIS MD [facility] 05-05-2021 08:05-0500 Respiratory rate 20 /min NORIS ELLIS MD [facility] 05-05-2021 08:05-0500 Systolic Blood Pressure NBP 122 1 NORIS ELLIS MD [facility] 05-05-2021 08:00-0500 Diastolic Blood Pressure NBP 82 1 NORIS ELLIS MD [facility] 05-05-2021 08:00-0500 Heart rate 74 /min NORIS ELLIS MD [facility] 05-05-2021 08:00-0500 Systolic Blood Pressure NBP 113 1 NORIS ELLIS MD [facility] 05-05-2021 07:55-0500 Diastolic Blood Pressure NBP 79 1 NORIS ELLIS MD [facility] 05-05-2021 07:55-0500 Heart rate 78 /min NORIS ELLIS MD [facility] 05-05-2021 07:55-0500 Respiratory rate 18 /min NORIS ELLIS MD [facility] 05-05-2021 07:55-0500 Systolic Blood Pressure NBP 116 1 NORIS ELLIS MD [facility] 05-05-2021 07:49-0500 Respiratory rate 16 /min NORIS ELLIS MD [facility] 05-05-2021 06:39-0500 Body height 167.64 cm NORIS ELLIS MD [facility] 05-05-2021 06:39-0500 Body weight 84.3 kg NORIS ELLIS MD [facility] 05-05-2021 06:39-0500 Body weight 30 kg/m2 NORIS ELLIS MD [facility] 05-05-2021 06:28-0500 Body height 167.64 cm NORIS ELLIS MD [facility] 05-05-2021 06:28-0500 Body temperature 97.34 [degF] NORIS ELLIS MD [facility] 05-05-2021 06:28-0500 Body weight 84.3 kg NORIS ELLIS MD [facility] Encounters Encounter Date Encounter Type Care Provider Facility Start: 04-22-2023 End: 04-23-[address] GAIL AKERS DO Facility:B Start: 04-22-2023 End: 04-23-2023 Observation RADHA RAND MACHINE SIGN WRITER-EMPLOYMENT PROGRAM REPRESENTATIVE [facility] Start: 10-17-2022 End: 10-17-2022 Emergency department patient visit JENNIFER ARAYA MD Facility:B Start: 10-17-2022 End: 10-17-2022 Emergency department patient visit DR REYNOLD PETERSON DO [facility] Start: 09-09-2022 End: 09-11-2022 Evaluation and management of inpatient OMAR RAY MACHINE SIGN WRITER-EMPLOYMENT PROGRAM REPRESENTATIVE Facility:B Start: 09-09-2022 End: 09-11-2022 Evaluation and management of inpatient CLAYTON ONEILL DO [facility] Start: 08-29-2022 ambulatory JENNIFER ARAYA MD F acility:B Start: 08-28-2022 End: 08-29-2022 ambulatory CLAYTON ONEILL DO Facility:B Start: 08-28-2022 End: 08-28-2022 Admission to establishment CLAYTON ONEILL DO [facility] Start: 07-17-2022 ambulatory JENNIFER ARAYA MD F acility:B Start: 07-04-2022 End: 07-05-2022 Emergency department patient visit EBER RASHEED MD Facility:B Start: 07-04-2022 End: 07-05-2022 Emergency department patient visit EBER RASHEED MD [facility] Start: 06-14-2022 End: 06-14-2022 Emergency department patient visit EBER RASHEED MD Facility:B Start: 06-14-2022 End: 06-14-2022 Emergency department patient visit EBER RASHEED MD [facility] Start: 10-14-2021 Scott Moran (Historic al) [facility] Procedures Date Procedure Procedure Detail Performing Clinician Start: 03-17-2023 Lumbar spinal fusion RA JOAQUÍN RAND MACHINE SIGN WRITER-EMPLOYMENT PROGRAM REPRESENTATIVE Start: 09-09-2022 Excision of cervical intervertebral disc CLAYTON ONEILL DO Plan of Treatment Date Care Activity Detail Author Start: 02-28-2024 PROSTATE CANCER SCRE ENING DISCUSSION PROSTATE CANCER SCREENING DISCUSSION [facility] Start: 10-20-2023 Colonoscopy COLONOSCOPY [facility] Start: 10-20-2023 COLORECTAL CANCER SCREENING COLORECTAL CANCER SCREENING [facility] Start: 04-03-2022 DIABETES SCREEN DIABETES SCREEN [facility] Start: 01-15-2022 Influenza vaccination INFLUENZA (Sea son Ended) [facility] Start: 06-15-2018 LIPID SCREEN LIPID SCREEN [facility] Start: 2012 SHINGRIX VACCINE (1 of 2) SHINGRIX V ACCINE (1 of 2) [facility] Start: 2007 COLOGUARD (FIT-DNA) COLOGUARD (FIT-D NA) [facility] Start: [address] [facility] Start: 2007 FECAL OCCULT BLOOD FECAL OCCULT BLOO D [facility] Start: 2007 SIGMOIDOSCOPY SIGMOIDOSCOPY [facility] Start: 1981 Urine microalbumin profile DTAP,TDAP ,TD (1 - Tdap) [facility] Start: 1980 HEPATITIS C SCREENING HEPATITIS C SC REENING [facility] Start: 1980 HIV SCREENING HIV SCREENING [facility] Start: 1967 COVID-19 VACCINE (#1) COVID-19 VACCI NE (#1) [facility] Start: 1967 COVID-19 VACCINE (1) COVID-19 VACCIN E (1) [facility] Immunizations Immunization Date Immunization Notes Care Provider [facility] [facility] influenza virus vaccine, unspecified formulation RADHA HELLEREMPLOYMENT PROGRAM REPRESENTATIVE [facility] 02-27-2019 influenza virus vaccine, unspecified formulation CLAYTON ONEILL DO [facility] 02-27-2019 influenza, injectabl e, quadrivalent, contains preservative Alek Sequeira MD Work Phone: [facility] 02-24-2018 influenza virus vaccine, unspecified formulation CLAYTON ONEILL DO [facility] 01-29-2017 influenza virus vaccine, unspecified formulation CLAYTON ONEILL DO [facility] 01-29-2017 influenza, seasonal, injectable Alek Sequeira MD Work Phone: [facility] 02-20-2016 influenza virus vaccine, unspecified formulation CLAYTON ONEILL DO [facility] 02-20-2016 influenza, seasonal, injectable Alek Sequeira MD Work Phone: [facility] 05-22-2015 influenza virus vaccine, unspecified formulation CLAYTON ONEILL DO [facility] 05-22-2015 influenza, injectabl e, quadrivalent, contains preservative Alek Sequeira MD Work Phone: [facility] 04-25-2015 tetanus toxoid, redu eunice diphtheria toxoid, and acellular pertussis vaccine, adsorbed NORIS ELLIS MD [facility] 03-07-2012 influenza virus vaccine, unspecified formulation Alek Sequeira MD Work Phone: [facility] Payers Date Payer Category Payer Medicare [id number] 2022 Private Health Insurance [id number] 2021 Private Health Insurance [id number] 2021 Private Health Insurance [id number] 2020 Medicaid [facility] [employer] [employer] [facility] [employer] [id number] 2020-Present [phone] [address] [place] [address] Medicaid [id number] 2020 Medicare [facility] [employer] [facility] DUAL COMPLETE HMO SNP [id number] 2020-Present [phone] [address] [place] [address] Medicare [id number] 1962 Unknown [id number] 78 1962 Unknown [id number] 27 1962 Unknown [id number] 27 1962 Unknown [id number] 27 1962 Unknown [id number] 27 1962 Unknown [id number] 27 1962 Unknown [id number] 27 1962 Unknown [id number] 27 1962 Unknown [id number] 27 1962 Unknown [id number] 27 Medicaid [id number] Social History Date Type Detail Facility Start: 03-14-2019 Ex-smoker (finding) [facility] Sex Assigned At Male [facility] End: 05-17-1984 History of tobacco use Current smoker [facility] End: 05-17-1984 History of tobacco use Cigarette Smoker [facility] Start: 08-16-2020 Alcohol intake Current non-dr sinker puller of alcohol (finding) [facility] Start: 1960 Sex Assigned At Not on file [facility] Functional Status Date Assessment Result Facility 04-23-2023 Functional Status Nurse Naa eller q2hrs Performed 7am-7pm [facility] 04-23-2023 Functional Status 100 [facility] 04-23-2023 Functional Status Door open, Bathroom light on, Non-Slip footwear, Room check performed [facility] 04-23-2023 Functional Status [facility] 04-22-2023 [facility] Status [facility]-22[facility]23 Functional Status Repositions self [facility] 04-22-2023 Functional Status Activity Demario tance Minimum assistance [facility] 09-11-2022 Functional Status 3 [facility]-11[facility]2022 Functional Status bilateral knee high [facility] 09-11-2022 Functional Status [facility] 09-10-2022 Functional Status 0 Silvia Calderon [facility] 09-10-2022 Functional Status 5 Slivia Calderon [facility] 09-10-2022 Functional Status Silvia Calderon [facility] 09-10-2022 Functional Status Silvia Calderon [facility] 09-09-2022 Functional Status Silvia Calderon [facility] 09-09-2022 Functional Status Mobile home Silvia Calderon [facility] 09-09-2022 Functional Status Maintained Silvia Calderon [facility] 07-05-2022 Functional Status Identified as high risk, Room located near nursing station, Door open, Food Cart Attendant at bedside [facility] 07-05-2022 Functional Status Silvia Calderon [facility] 07-04-2022 Functional Status Valid [place] Sli p yes, form complete [facility] 07-04-2022 Functional Status Silvia Calderon [facility] 07-04-2022 Functional Status ID band on, Allergy Band on, Call device within reach, Bed in low position, Wheels locked, Upper/Half-Length side-rails up, Phone within reach, Visitor at bedside, Safety level maintained [facility] 06-14-2022 Functional Status Standard Safet y ID band on, Allergy Band on, Call device within reach, Bed in low position, Wheels locked, Upper/Half-Length side-rails up, Phone within reach, personal items within reach, Bedside Cart Locked, Visitor at bedside [facility] Mental Status Date Assessment Result Facility 04-23-2023 Mental Status Oriented x 4 [facility] 04-22-2023 Mental Status [facility] 04-22-2023 Mental Status [facility] 09-11-2022 Mental Status Oriented x 4 [facility] 09-11-2022 Mental Status [facility] 09-11-2022 Mental Status [facility] 07-04-2022 Mental Status Orientation Oriented x 4 [facility] 06-14-2022 Mental Status Orientation Oriented x 4 [facility] Clinical Notes 09-23-2011 to 04-27-2023 Note Date & Type Note Facility 04-27-2023 Note . MICRO - Microbiology PROCEDURE: Blood Culture (bacterial) [*1] SOURCE: Blood BODY SITE: COLLECTED DATE/TIME: 04/22/2023 09:53 EST RECEIVED DATE/TIME: 04/22/2023 13:41 EST START DATE/TIME: 04/22/2023 13:41 EST FREE TEXT SOURCE: FINAL REPORTS Final Report [] Verified Date/Time/Personnel: 04/27/2023 13:59 EST Blood Culture: No Growth at 5 days. PRELIMINARY REPORTS Preliminary Report [] Verified Date/Time/Personnel: 04/22/2023 14:59 EST Culture has been received in lab and is no growth to date. Routine cultures are held for 5 days. Performing Locations *1: This test was performed at: [facility], [address] [place] [address], [facility] , [facility] ([place]) 04-27-2023 Note . MICRO - Microbiology PROCEDURE: Blood Culture (bacterial) [*1] SOURCE: Blood BODY SITE: COLLECTED DATE/TIME: 04/22/2023 09:53 EST RECEIVED DATE/TIME: 04/22/2023 13:41 EST START DATE/TIME: 04/22/2023 13:41 EST FREE TEXT SOURCE: FINAL REPORTS Final Report [] Verified Date/Time/Personnel: 04/27/2023 13:59 EST Blood Culture: No Growth at 5 days. PRELIMINARY REPORTS Preliminary Report [] Verified Date/Time/Personnel: 04/22/2023 14:59 EST Culture has been received in lab and is no growth to date. Routine cultures are held for 5 days. Performing Locations *1: This test was performed at: [facility], [address] [place] [address], [id number] , [facility] ([place]) 04-23-2023 Hospital Discharge instructions Patient Education 04/23/2023 17:54:46 Tick Bite Information, Adult, Rekb-[id number] Tick Bite Information, Adult Ticks are insects that can bite. Most ticks live in shrubs and grassy areas. They climb onto people and animals that go by. Then they bite. Some ticks carry germs that can make you sick. How can I prevent tick bites? Use an insect repellent that has 20% or higher of the ingredients DEET, picaridin, or AH0691. Put this insect repellent on: ?Bare skin. ?The tops of your boots. ?Your pant legs. ?The ends of your sleeves. If you use an insect repellent that has the ingredient permethrin, make sure to follow the instructions on the bottle. Treat the following: ?Clothing. ?Supplies. ?Boots. ?Tents. Wear long sleeves, long pants, and light colors. Tuck your pant legs into your socks. Stay in the middle of the trail. Try not to walk through long grass. Before going inside your house, check your clothes, hair, and skin for ticks. Make sure to check your head, neck, armpits, waist, groin, and joint areas. Check for ticks every day. When you come indoors: ?Wash your clothes right away. ?Shower right away. ?Dry your clothes in a dryer on high heat for 60 minutes or more. What is the right way to remove a tick? Remove a tick from your skin as soon as possible. To remove a tick that is crawling on your skin: ?Go outdoors and brush the tick off. ?Use tape or a lint roller. To remove a tick that is biting: ?Wash your hands. ?If you have latex gloves, put them on. ?Use tweezers, curved forceps, or a tick-removal tool to grasp the tick. Grasp the tick as close to your skin and as close to the tick's head as possible. ?Gently pull up until the tick lets go. ?Try to keep the tick's head attached to its body. ?Do not twist or jerk the tick. ?Do not squeeze or crush the tick. Do not try to remove a tick with heat, alcohol, petroleum jelly, or fingernail tongan. How should I get rid of a tick? Here are some ways to get rid of a tick that is alive: Place the tick in rubbing alcohol. Place the tick in a bag or container you can close tightly. Wrap the tick tightly in tape. Flush the tick down the toilet. Contact a doctor if: You have symptoms of a disease, such as: ?Pain in a muscle, joint, or bone. ?Trouble walking or moving your legs. ?Numbness in your legs. ?Inability to move (paralysis). ?A red rash that makes a cahuilla (bull's-eye rash). ?Redness and swelling where the tick bit you. ?A fever. ?Throwing up (vomiting) over and over. ?Diarrhea. ?Weight loss. ?Tender and swollen lymph glands. ?Shortness of breath. ?Cough. ?Belly pain (abdominal pain). ?Headache. ?Being more tired than normal. ?A change in how alert (conscious) you are. ?Confusion. Get help right away if: You cannot remove a tick. A part of a tick breaks off and gets stuck in your skin. You are feeling worse. Summary Ticks may carry germs that can make you sick. To prevent tick bites, wear long sleeves, long pants, and light colors. Use insect repellent. Follow the instructions on the bottle. If the tick is biting, do not try to remove it with heat, alcohol, petroleum jelly, or fingernail tongan. Use tweezers, curved forceps, or a tick-removal tool to grasp the tick. Gently pull up until the tick lets go. Do not twist or jerk the tick. Do not squeeze or crush the tick. If you have symptoms, contact a doctor. This information is not intended to replace advice given to you by your health care provider. Make sure you discuss any questions you have with your health care provider. Document Released: 07/28/2010 Document Revised: 04/17/2019 Document Reviewed: 08/13/2017 [employer] Patient Education 2020 [employer]. 04/23/2023 17:54:37 Fall Prevention in the Home, Adult, Bdfp-wc-Tomo Fall Prevention in the Home, Adult Falls can cause injuries. They can happen to people of all ages. There are many things you can do to make your home safe and to help prevent falls. Ask for help when making these changes, if needed. What actions can I take to prevent falls? General Instructions Use good lighting in all rooms. Replace any light bulbs that burn out. Turn on the lights when you go into a dark area. Use night-lights. Keep items that you use often in goeg-xt-kswdd places. Lower the shelves around your home if necessary. Set up your furniture so you have a clear path. Avoid moving your furniture around. Do not have throw rugs and other things on the floor that can make you trip. Avoid walking on wet floors. If any of your floors are uneven, fix them. Add color or contrast paint or tape to clearly yovani and help you see: ?Any grab bars or handrails. ?First and last steps of stairways. ?Where the edge of each step is. If you use a stepladder: ?Make sure that it is fully opened. Do not climb a closed stepladder. ?Make sure that both sides of the stepladder are locked into place. ?Ask someone to hold the stepladder for you while you use it. If there are any pets around you, be aware of where they are. What can I do in the bathroom? Keep the floor dry. Clean up any water that spills onto the floor as soon as it happens. Remove soap buildup in the tub or shower regularly. Use non-skid mats or decals on the floor of the tub or shower. Attach bath mats securely with double-sided, non-slip rug tape. If you need to sit down in the shower, use a plastic, non-slip stool. Install grab bars by the toilet and in the tub and shower. Do not use towel bars as grab bars. What can I do in the bedroom? Make sure that you have a light by your bed that is easy to reach. Do not use any sheets or blankets that are too big for your bed. They should not hang down onto the floor. Have a firm chair that has side arms. You can use this for support while you get dressed. What can I do in the kitchen? Clean up any spills right away. If you need to reach something above you, use a strong step stool that has a grab bar. Keep electrical cords out of the way. Do not use floor tongan or wax that makes floors slippery. If you must use wax, use non-skid floor wax. What can I do with my stairs? Do not leave any items on the stairs. Make sure that you have a light switch at the top of the stairs and the bottom of the stairs. If you do not have them, ask someone to add them for you. Make sure that there are handrails on both sides of the stairs, and use them. Fix handrails that are broken or loose. Make sure that handrails are as long as the stairways. Install non-slip stair treads on all stairs in your home. Avoid having throw rugs at the top or bottom of the stairs. If you do have throw rugs, attach them to the floor with carpet tape. Choose a carpet that does not hide the edge of the steps on the stairway. Check any carpeting to make sure that it is firmly attached to the stairs. Fix any carpet that is loose or worn. What can I do on the outside of my home? Use bright outdoor lighting. Regularly fix the edges of walkways and driveways and fix any cracks. Remove anything that might make you trip as you walk through a door, such as a raised step or threshold. Trim any bushes or trees on the path to your home. Regularly check to see if handrails are loose or broken. Make sure that both sides of any steps have handrails. Install guardrails along the edges of any raised decks and porches. Clear walking paths of anything that might make someone trip, such as tools or rocks. Have any leaves, snow, or ice cleared regularly. Use sand or salt on walking paths during winter. Clean up any spills in your garage right away. This includes grease or oil spills. What other actions can I take? Wear shoes that: ?Have a low heel. Do not wear high heels. ?Have rubber bottoms. ?Are comfortable and fit you well. ?Are closed at the toe. Do not wear open-toe sandals. Use tools that help you move around (mobility aids) if they are needed. These include: ?Canes. ?Walkers. ?Scooters. ?Crutches. Review your medicines with your doctor. Some medicines can make you feel dizzy. This can increase your chance of falling. Ask your doctor what other things you can do to help prevent falls. Where to find more information Centers for Disease Control and Prevention, [place]: https://cdc.gov National [place] on Aging: https://sx5nfog.bucky.nih.gov Contact a doctor if: You are afraid of falling at home. You feel weak, drowsy, or dizzy at home. You fall at home. Summary There are many simple things that you can do to make your home safe and to help prevent falls. Ways to make your home safe include removing tripping hazards and installing grab bars in the bathroom. Ask for help when making these changes in your home. This information is not intended to replace advice given to you by your health care provider. Make sure you discuss any questions you have with your health care provider. Document Released: 02/27/2010 Document Revised: 08/24/2019 Document Reviewed: 12/16/2017 [employer] Patient Education 2020 [employer] Follow Up Care 04/22/2023 08:35:20 With:JENNIFER ARAYA MD Address: [address] [place] [phone] When:04/30/2023 09:45:00 Comments:This is your post-hospital follow-up appointment. [facility] 04-23-2023 Note Discharge Instructions Thank you for allowing [facility] to assist you with your healthcare needs. The following is important discharge information regarding your hospital visit. Your Care Team JULIOCESAR Caal Your Diagnosis Body aches Chronic renal disease, stage III Fall HTN (hypertension) Leukocytosis Polyarthralgia Tick bite What to do next Instructions From Your Doctor You were admitted with joint pain and elevated white blood cell count. There is no obvious source of infection. Dr. Oneill evaluated you and did not feel that there was a spinal abscess. You are being treated for a tick bite prophylactically. A lab test was sent out. You will need to follow-up with your PCP for results. A prescription for doxycycline was sent to your pharmacy. Please take the full dose for 10 days. If you should have any worsening in symptoms such as fever or chills, please return to the emergency department. Follow Up Appointments Follow Up with JENNIFER ARAYA MD When 04/30/2023 09:45 AM EST Why: This is your post-hospital follow-up appointment. Where: [address] [place] [phone] Allergies codeine (vomiting) vancomycin Medications Please ask your primary doctor or pharmacist before taking any other medication not listed, including over the counter drugs, herbal medications, vitamins and or supplements as they may interact with your home medications. What How Much When Instructions Last Dose New doxycycline (doxycycline hyclate 100 mg oral capsule) 1 cap by mouth Two (2) times a day Duration: 10 Days Pickup at [facility] #[id number] START 04/24/23 New naproxen (Aleve 220 mg oral tablet) 1 tab(s) by mouth Every 12 hours as needed for as needed for pain Duration: 10 Days Pickup at [facility][id number] Unchanged amLODIPine (amLODIPine 10 mg oral tablet) 1 tab(s) by mouth Once a day 04/23/23 9:00am Unchanged tiZANidine (tiZANidine 4 mg oral tablet) 1 tab(s) by mouth Every 8 hours as needed for as needed for muscle spasm 04/23/23 9:00am Unchanged venlafaxine (venlafaxine 150 mg oral capsule, extended release) 1 cap by mouth Once a day with a meal 04/23/23 9:00am Pharmacy Information [facility] #[id number]: [address] [place], [place] [phone] Please take this list to your next doctor s visit. Bring all medications you take, including over the counter medications, herbals and other supplements with you to your doctor s visit. Patients and families are reminded to discard old lists and to update any records with all medication providers or retail pharmacies. Medication Leaflets doxycycline (oral/injection) (DOX halle medellin) Acticlate, Adoxa, Alodox, Avidoxy, Doryx, Doryx MPC, Lymepak, Mondoxyne NL, Monodox, Morgidox, Morgidox 3o840lb, Morgidox [id number], Okebo, Oracea, Targadox, Vibramycin, Vibramycin Monohydrate What is the most important information I should know about doxycycline? You should not take this medicine if you are allergic to any tetracycline antibiotic. Children younger than 8 years old should use doxycycline only in cases of severe or life-threatening conditions. This medicine can cause permanent yellowing or graying of the teeth in children Using doxycycline during could harm the unborn baby or cause permanent tooth discoloration later in the baby's life. What is doxycycline? Doxycycline is a tetracycline antibiotic that Doxycycline is used to treat many different bacterial infections, such as acne, urinary tract infections, intestinal infections, eye infections, gonorrhea, chlamydia, periodontitis (gum disease), and others. Doxycycline is also used to treat blemishes, bumps, and acne-like lesions caused by rosacea. Doxycycline will not treat facial redness caused by rosacea. Some forms of doxycycline are used to prevent malaria, to treat anthrax, or to treat infections caused by mites, ticks, or lice. Doxycycline may also be used for purposes not listed in this medication guide. What should I discuss with my healthcare provider before taking doxycycline? You should not take this medicine if you are allergic to doxycycline or other tetracycline antibiotics such as demeclocycline, minocycline, tetracycline, or tigecycline. Tell your doctor if you have ever had: liver disease; kidney disease; asthma or sulfite allergy; increased pressure inside your skull; or if you also take isotretinoin, seizure medicine, or a blood thinner such as warfarin (Coumadin). If you are using doxycycline to treat gonorrhea, your doctor may test you to make sure you do not also have syphilis, another sexually transmitted disease. Taking this medicine during may affect tooth and bone development in the unborn baby. Taking doxycycline during the last half of can cause permanent tooth discoloration later in the baby's life. Tell your doctor if you are or if you become . Doxycycline can make control pills less effective. Ask your doctor about using a non-hormonal control (condom, diaphragm with spermicide) to prevent . Doxycycline can pass into breast milk and may affect bone and tooth development in a nursing . Do not breastfeed while you are taking doxycycline. Doxycycline can cause permanent yellowing or graying of the teeth in children younger than 8 years old. Children should use doxycycline only in cases of severe or life-threatening conditions such as anthrax or Brock spotted fever. The benefit of treating a serious condition may outweigh any risks to the child's tooth development. How should I take doxycycline? Follow all directions on your prescription label and read all medication guides or instruction sheets. Use the medicine exactly as directed. Take doxycycline with a full glass of water. Drink plenty of liquids while you are taking doxycycline. Read and carefully follow any Instructions for Use provided with your medicine. Ask your doctor or pharmacist if you do not understand these instructions. Most brands of doxycyline may be taken with food or milk if the medicine upsets your stomach. Different brands of doxycycline may have different instructions about taking them with or without food. Take Oracea on an empty stomach, at least 1 hour before or 2 hours after a meal. You may need to split a doxycycline tablet to get the correct dose. Follow your doctor's instructions. Swallow a delayed-release capsule or tablet whole. Do not crush, chew, break, or open it. Measure liquid medicine with the dosing syringe provided, or with a special dose-measuring spoon or medicine cup. If you do not have a dose-measuring device, ask your pharmacist for one. If you take doxycycline to prevent malaria: Start taking the medicine 1 or 2 days before entering an area where malaria is common. Continue taking the medicine every day during your stay and for at least 4 weeks after you leave the area. Doxycycline is usually given by injection only if you are unable to take the medicine by mouth. A healthcare provider will give you this injection as an infusion into a vein. Use this medicine for the full prescribed length of time, even if your symptoms quickly improve. Skipping doses can increase your risk of infection that is resistant to medication. Doxycycline will not treat a viral infection such as the flu or a common cold. Store at room temperature away from moisture, heat, and light. Throw away any unused medicine after the expiration date on the label has passed. Using doxycycline can cause damage to your kidneys. What happens if I miss a dose? Take the medicine as soon as you can, but skip the missed dose if it is almost time for your next dose. Do not take two doses at one time. What happens if I overdose? Seek emergency medical attention or call the Poison Help line at . What should I avoid while taking doxycycline? Do not take iron supplements, multivitamins, calcium supplements, antacids, or laxatives within 2 hours before or after taking doxycycline. Avoid taking any other antibiotics with doxycycline unless your doctor has told you to. Doxycycline could make you sunburn more easily. Avoid sunlight or tanning beds. Wear protective clothing and use sunscreen (SPF 30 or higher) when you are outdoors. Antibiotic medicines can cause diarrhea, which may be a sign of a new infection. If you have diarrhea that is watery or bloody, call your doctor. Do not use anti-diarrhea medicine unless your doctor tells you to. What are the possible side effects of doxycycline? Get emergency medical help if you have signs of an allergic reaction (hives, difficult breathing, swelling in your face or throat) or a severe skin reaction (fever, sore throat, burning in your eyes, skin pain, red or purple skin rash that spreads and causes blistering and peeling). Seek medical treatment if you have a serious drug reaction that can affect many parts of your body. Symptoms may include: skin rash, fever, swollen glands, flu-like symptoms, muscle aches, severe weakness, unusual bruising, or yellowing of your skin or eyes. This reaction may occur several weeks after you began using doxycycline. Call your doctor at once if you have: severe stomach pain, diarrhea that is watery or bloody; throat irritation, trouble swallowing; chest pain, irregular heart rhythm, feeling short of breath; little or no urination; low white blood cell counts--fever, chills, swollen glands, body aches, weakness, pale skin, easy bruising or bleeding; increased pressure inside the skull--severe headaches, ringing in your ears, dizziness, nausea, vision problems, pain behind your eyes; or signs of liver or pancreas problems--loss of appetite, upper stomach pain (that may spread to your back), tiredness, nausea or vomiting, fast heart rate, dark urine, jaundice (yellowing of the skin or eyes). Common side effects may include: nausea, vomiting, upset stomach, loss of appetite; mild diarrhea; skin rash or itching; darkened skin color; or vaginal itching or discharge. This is not a complete list of side effects and others may occur. Call your doctor for medical advice about side effects. You may report side effects to FDA at 9-348-BTK-0216. What other drugs will affect doxycycline? Sometimes it is not safe to use certain medications at the same time. Some drugs can affect your blood levels of other drugs you take, which may increase side effects or make the medications less effective. Other drugs may affect doxycycline, including prescription and dlcg-njh-mnsidkz medicines, vitamins, and herbal products. Tell your doctor about all your current medicines and any medicine you start or stop using. Where can I get more information? Your pharmacist can provide more information about doxycycline. Remember, keep this and all other medicines out of the reach of children, never share your medicines with others, and use this medication only for the indication prescribed. Every effort has been made to ensure that the information provided by [employer] ('[employer]') is accurate, up-to-date, and complete, but no guarantee is made to that effect. Drug information contained herein may be time sensitive. [employer] information has been compiled for use by healthcare practitioners and consumers in the [place] and therefore [employer] does not warrant that uses outside of the [place] are appropriate, unless specifically indicated otherwise. [employer] drug information does not endorse drugs, diagnose patients or recommend therapy. [employer] drug information is an informational resource designed to assist licensed healthcare practitioners in caring for their patients and/or to serve consumers viewing this service as a supplement to, and not a substitute for, the expertise, skill, knowledge and judgment of healthcare practitioners. The absence of a warning for a given drug or drug combination in no way should be construed to indicate that the drug or drug combination is safe, effective or appropriate for any given patient. [employer] does not assume any responsibility for any aspect of healthcare administered with the aid of information [facility] provides. The information contained herein is not intended to cover all possible uses, directions, precautions, warnings, drug interactions, allergic reactions, or adverse effects. If you have questions about the drugs you are taking, check with your doctor, nurse or pharmacist. Copyright 6002-8647 [employer] Version: 25.. Revision Date: 01/20/2023. Education Materials Tick Bite Information, Adult Ticks are insects that can bite. Most ticks live in shrubs and grassy areas. They climb onto people and animals that go by. Then they bite. Some ticks carry germs that can make you sick. How can I prevent tick bites? Use an insect repellent that has 20% or higher of the ingredients DEET, picaridin, or LQ1659. Put this insect repellent on: ? Bare skin. ? The tops of your boots. ? Your pant legs. ? The ends of your sleeves. If you use an insect repellent that has the ingredient permethrin, make sure to follow the instructions on the bottle. Treat the following: ? Clothing. ? Supplies. ? Boots. ? Tents. Wear long sleeves, long pants, and light colors. Tuck your pant legs into your socks. Stay in the middle of the trail. Try not to walk through long grass. Before going inside your house, check your clothes, hair, and skin for ticks. Make sure to check your head, neck, armpits, waist, groin, and joint areas. Check for ticks every day. When you come indoors: ? Wash your clothes right away. ? Shower right away. ? Dry your clothes in a dryer on high heat for 60 minutes or more. What is the right way to remove a tick? Remove a tick from your skin as soon as possible. To remove a tick that is crawling on your skin: ? Go outdoors and brush the tick off. ? Use tape or a lint roller. To remove a tick that is biting: ? Wash your hands. ? If you have latex gloves, put them on. ? Use tweezers, curved forceps, or a tick-removal tool to grasp the tick. Grasp the tick as close to your skin and as close to the tick's head as possible. ? Gently pull up until the tick lets go. ? Try to keep the tick's head attached to its body. ? Do not twist or jerk the tick. ? Do not squeeze or crush the tick. Do not try to remove a tick with heat, alcohol, petroleum jelly, or fingernail tongan. How should I get rid of a tick? Here are some ways to get rid of a tick that is alive: Place the tick in rubbing alcohol. Place the tick in a bag or container you can close tightly. Wrap the tick tightly in tape. Flush the tick down the toilet. Contact a doctor if: You have symptoms of a disease, such as: ? Pain in a muscle, joint, or bone. ? Trouble walking or moving your legs. ? Numbness in your legs. ? Inability to move (paralysis). ? A red rash that makes a cahuilla (bull's-eye rash). ? Redness and swelling where the tick bit you. ? A fever. ? Throwing up (vomiting) over and over. ? Diarrhea. ? Weight loss. ? Tender and swollen lymph glands. ? Shortness of breath. ? Cough. ? Belly pain (abdominal pain). ? Headache. ? Being more tired than normal. ? A change in how alert (conscious) you are. ? Confusion. Get help right away if: You cannot remove a tick. A part of a tick breaks off and gets stuck in your skin. You are feeling worse. Summary Ticks may carry germs that can make you sick. To prevent tick bites, wear long sleeves, long pants, and light colors. Use insect repellent. Follow the instructions on the bottle. If the tick is biting, do not try to remove it with heat, alcohol, petroleum jelly, or fingernail tongan. Use tweezers, curved forceps, or a tick-removal tool to grasp the tick. Gently pull up until the tick lets go. Do not twist or jerk the tick. Do not squeeze or crush the tick. If you have symptoms, contact a doctor. This information is not intended to replace advice given to you by your health care provider. Make sure you discuss any questions you have with your health care provider. Document Released: 07/28/2010 Document Revised: 04/17/2019 Document Reviewed: 08/13/2017 [employer] Patient Education 2020 [employer] Fall Prevention in the Home, Adult Falls can cause injuries. They can happen to people of all ages. There are many things you can do to make your home safe and to help prevent falls. Ask for help when making these changes, if needed. What actions can I take to prevent falls? General Instructions Use good lighting in all rooms. Replace any light bulbs that burn out. Turn on the lights when you go into a dark area. Use night-lights. Keep items that you use often in iynv-qh-svpeb places. Lower the shelves around your home if necessary. Set up your furniture so you have a clear path. Avoid moving your furniture around. Do not have throw rugs and other things on the floor that can make you trip. Avoid walking on wet floors. If any of your floors are uneven, fix them. Add color or contrast paint or tape to clearly yovani and help you see: ? Any grab bars or handrails. ? First and last steps of stairways. ? Where the edge of each step is. If you use a stepladder: ? Make sure that it is fully opened. Do not climb a closed stepladder. ? Make sure that both sides of the stepladder are locked into place. ? Ask someone to hold the stepladder for you while you use it. If there are any pets around you, be aware of where they are. What can I do in the bathroom? Keep the floor dry. Clean up any water that spills onto the floor as soon as it happens. Remove soap buildup in the tub or shower regularly. Use non-skid mats or decals on the floor of the tub or shower. Attach bath mats securely with double-sided, non-slip rug tape. If you need to sit down in the shower, use a plastic, non-slip stool. Install grab bars by the toilet and in the tub and shower. Do not use towel bars as grab bars. What can I do in the bedroom? Make sure that you have a light by your bed that is easy to reach. Do not use any sheets or blankets that are too big for your bed. They should not hang down onto the floor. Have a firm chair that has side arms. You can use this for support while you get dressed. What can I do in the kitchen? Clean up any spills right away. If you need to reach something above you, use a strong step stool that has a grab bar. Keep electrical cords out of the way. Do not use floor tongan or wax that makes floors slippery. If you must use wax, use non-skid floor wax. What can I do with my stairs? Do not leave any items on the stairs. Make sure that you have a light switch at the top of the stairs and the bottom of the stairs. If you do not have them, ask someone to add them for you. Make sure that there are handrails on both sides of the stairs, and use them. Fix handrails that are broken or loose. Make sure that handrails are as long as the stairways. Install non-slip stair treads on all stairs in your home. Avoid having throw rugs at the top or bottom of the stairs. If you do have throw rugs, attach them to the floor with carpet tape. Choose a carpet that does not hide the edge of the steps on the stairway. Check any carpeting to make sure that it is firmly attached to the stairs. Fix any carpet that is loose or worn. What can I do on the outside of my home? Use bright outdoor lighting. Regularly fix the edges of walkways and driveways and fix any cracks. Remove anything that might make you trip as you walk through a door, such as a raised step or threshold. Trim any bushes or trees on the path to your home. Regularly check to see if handrails are loose or broken. Make sure that both sides of any steps have handrails. Install guardrails along the edges of any raised decks and porches. Clear walking paths of anything that might make someone trip, such as tools or rocks. Have any leaves, snow, or ice cleared regularly. Use sand or salt on walking paths during winter. Clean up any spills in your garage right away. This includes grease or oil spills. What other actions can I take? Wear shoes that: ? Have a low heel. Do not wear high heels. ? Have rubber bottoms. ? Are comfortable and fit you well. ? Are closed at the toe. Do not wear open-toe sandals. Use tools that help you move around (mobility aids) if they are needed. These include: ? Canes. ? Walkers. ? Scooters. ? Crutches. Review your medicines with your doctor. Some medicines can make you feel dizzy. This can increase your chance of falling. Ask your doctor what other things you can do to help prevent falls. Where to find more information Centers for Disease Control and Prevention, ROB[place]: https://cdc.gov National [place] on Aging: https://fi9ffyv.bucky.nih.gov Contact a doctor if: You are afraid of falling at home. You feel weak, drowsy, or dizzy at home. You fall at home. Summary There are many simple things that you can do to make your home safe and to help prevent falls. Ways to make your home safe include removing tripping hazards and installing grab bars in the bathroom. Ask for help when making these changes in your home. This information is not intended to replace advice given to you by your health care provider. Make sure you discuss any questions you have with your health care provider. Document Released: 02/27/2010 Document Revised: 08/24/2019 Document Reviewed: 12/16/2017 [employer] Patient Education 2020 [employer] Additional Information VACCINATE! IT SAVES LIVES! Members of the community who have not yet received the COVID-19 vaccine and would like to receive it can visit one of [facility] vaccine clinics. There are many vaccine clinic locations within the [facility]. For locations and available times, please visit https://gettheshot.coronavirus.o hio.gov/. It is important to note that some COVID mobile vaccine clinics are held outdoors and may be canceled in rainy or stormy conditions. To learn more about pediatric vaccinations (ages 5-11), we invite you to visit the [facility] webpage. [email or web address].[email or web address]/p ages/[email or web address]-Aaqpt-Osozcwikbwj-Freq ehudce-Ifgcb-[email or web address].html To learn more about the COVID-19 vaccine, we invite you to visit the CDC website for a list of frequently asked questions.https://www.cdc.gov/co ronavirus/2019-ncov/vaccines/faq .html [facility] Patient Portal Access Instructions: Stay connected with your healthcare team and access your personal medical information anytime with the [facility] Patient Portal. Please follow the directions below to create your [facility] account: 1.Access the email account you provided upon registration to the hospital/physician office.2.Look for an invitation email from [facility].3.Open the email and access the invitation link: Accept Invitation to [facility].4.Fill in the required salgado to create your account. To access your account, visit [email or web address]. Click the blue button labeled Access Patient Portal and then log in with the username and password that you created in the steps above. You will be able to view your test results, lab results, a summary of your visits, upcoming appointments and more. There is also a convenient messaging option where you can send secure messages to your provider. In addition, you will have the ability to download any documents or summaries to your computer and/or send the information securely to a physician. Remember that your healthcare information is confidential, so carefully consider who you will allow to register on the [facility] Patient Portal for access to your information. You can also access the [facility] Patient Portal on the [facility] john. Simply click on Patient Portal and then log into your account. If you would like to receive a full copy of your medical records, please contact the [facility] Medical Records Department by calling [phone], Wednesday through Wednesday between 8 a.m. and 4:30 p.m. HOW TO SAFELY DISPOSE OF PRESCRIPTION MEDICATIONS Please use one of the following methods to safely dispose of your unused medications. 1.Use a drug disposal kit: the drug disposal pouch allows you to safely discard your old and unused drugs. Ask your nurse to give you one when you are discharged.2.Visit a local take-back location: Many local pharmacies and police departments have programs that collect old and unwanted prescription drugs. Call your local pharmacy or go to http://bit.ly/2S6Be1h to find one close to you.3.Make use of household items: Use cat litter or old coffee grounds to dispose medications if other options are not available. Mix your drugs with these household products, seal them in an airtight container and throw it into the garbage. Call [facility]: [phone] to be sure your drugs can be disposed of in this way. Some medicines may require a different approach.4.Never flush your medications down the toilet. IF YOU HAVE BEEN PRESCRIBED AN OPIOID FOR PAIN If you have been prescribed an opioid (such as hydrocodone, oxycodone or morphine), it is critical to understand the possible side effects and risks of opioid pain medications. Even when taken as directed, opioids can have several side effects including: Tolerance, meaning you might need to take more of a medication for the same pain relief. Nausea, vomiting and/or constipation. Sleepiness, dizziness, dry mouth, confusion, depression or itching. Physical dependence, meaning you have withdrawal symptoms when a medication is stopped, can develop within a few days. KNOW YOUR RESPONSIBILITIES It is important to know exactly how much and how often to take the opioid pain medications you are prescribed. Never take opioids in higher amounts or more often than prescribed. Do not combine opioids with alcohol or other drugs that cause drowsiness, such as benzodiazepines, also known as benzos, including diazepam and alprazolam, muscle relaxants or sleep aids. Never sell or share prescription opioids. This is illegal. Store opioids in a secure place and out of reach of others (including children, family, friends and visitors). The last page of this document has been signed and retained as a CHART COPY. Signatures Patient Education Materials Tick Bite Information, Adult, Kzap-fj-Uigq Fall Prevention in the Home, Adult, Rftx-gs-Rjqo Medication Leaflets doxycycline (oral/injection) My discharge plan and instructions have been reviewed and explained to me and I,JYOTHI CAIN understand my current condition and have read and understand these discharge instructions. I have received a written copy of the plan/instructions. If I have questions, I am aware that I should contact my doctor. Patient/Supervisor Agency Appointments Signature: Date/Time: Relationship to Patient: Witness Name/Signature: Date/Time: [facility] 04-23-[address] Oneill called in to unit, stated that the MRI showed normal surgical changes, he does not believe it is an abcess. He recommended a baseline ESR and CRP, I informed him they were done already and gave him th eresults. Notifoed Josue Silva APRN of conversation with Dr. Oneill. Digitally Signed by MARCOS Murdock on 04/23/2023 05:21 PM [facility] 04-23-2023 Note . MICRO - Microbiology PROCEDURE: Urine Culture [*1] SOURCE: Urine, Clean Catch BODY SITE: COLLECTED DATE/TIME: 04/22/2023 09:53 EST RECEIVED DATE/TIME: 04/22/2023 14:05 EST START DATE/TIME: 04/22/2023 14:06 EST FREE TEXT SOURCE: FINAL REPORTS Final Report [] Verified Date/Time/Personnel: 04/23/2023 14:42 EST <10,000 cfu/ml. No Significant growth. Sensitivity not indicated. Performing Locations *1: This test was performed at: [address], [facility] , [facility] ([place]) 04-23-2023 Note ORIGINAL EXAMINATION: MRI OF THE LUMBAR SPINE WITHOUT AND WITH CONTRAST 04/23/2023 10:10 am TECHNIQUE: Multiplanar multisequence MRI of the lumbar spine was performed without and with the administration of intravenous contrast. COMPARISON: CT abdomen pelvis 04/22/2023 HISTORY: ORDERING SYSTEM PROVIDED HISTORY: Reason for Exam: Lumbar surgery with fall, edema at top of incision FINDINGS: For the purposes of this dictation, there are 5 lumbar type vertebral bodies with the most caudal fully segmented body denoted as L5. There is partial sacralization of L5 on the left with a pseudoarthrosis, a described cause of back pain. Mild retrolisthesis L2 on L3, L3 on L4, and L4 on L5. Vertebral body heights are maintained. Diffuse disc desiccation and height loss throughout the lumbar spine. Multilevel degenerative marrow signal change without visualization of a suspicious marrow signal abnormality. The conus terminates at a normal level and the nerve roots of the cauda equina appear unremarkable. Images are degraded by motion artifact. There are bilateral renal cysts identified requiring no imaging follow-up. There is a peripherally enhancing fluid collection in the subcutaneous fat measuring 7.3 cm in cranial caudal dimension by 1.4 cm AP by 2.3 cm transverse. This could be postsurgical in nature but MRI cannot determine the sterility. Fluid signal and enhancement in the posterior paraspinal musculature and at the L4-5 laminectomy site could be postoperative or represent myositis. L1-L2: Generalized disc bulge, facet arthropathy, ligamentum flavum hypertrophy with mild canal stenosis. No significant neural foraminal stenosis. L2-L3: Generalized disc bulge, facet arthropathy, ligamentum flavum hypertrophy, and prominent posterior epidural fat results in moderate canal stenosis. Rekb-dz-julznagg left and mild right neural foraminal stenosis. L3-L4: Generalized disc bulge, facet arthropathy, ligamentum flavum hypertrophy, and posterior epidural fat results in moderate canal stenosis. Moderate left and mild right neural foraminal stenosis. L4-L5: Generalized disc bulge with a superimposed right central inferiorly migrated extrusion. Mild canal stenosis. Mild bilateral lateral recess stenosis, right greater than left. Mild left and right neural foraminal stenosis. L5-S1: Facet arthropathy and minimal generalized disc bulge without significant canal stenosis. Mild right and no significant left neural foraminal stenosis. There is anterior epidural enhancement which is more pronounced from L2 through L5 but is most consistent with an cord venous plexus. Smooth posterior epidural/dural enhancement from the T2-3 level through the sacrum may also represent venous engorgement and/or epidural phlegmon. IMPRESSION: 1. Multilevel degenerative changes of the spine with up to moderate canal stenosis at L2-3 and L3-4. 2. Posterior decompression at L4-5 with continued mild canal stenosis. 3. Smooth posterior enhancement from L2-3 through the sacrum may represent epidural phlegmon or postoperative dural enhancement. 4. Fluid collections at the laminotomy site and in the subcutaneous fat could be postoperative but MRI cannot determine the sterility. An infectious process is also considered. 5. Edema and enhancement the paraspinal musculature could be related to myositis or be postoperative. Interpreted by: Emeka Cruz MD Preliminary Report By: Emeka Cruz MD Electronically signed By Emeka Cruz MD Dictated Date: 04/23/2023 10:43:14 AM Prelim Date: 04/23/2023 11:11:59 AM Sign Date: 04/23/2023 11:11:59 AM Ordering Provider: RADHA RAND [facility] [place] 04-23-2023 Orthopaedic surgery Consult note Date of Service 04/23/2023 Reason for Consultation Generalized joint pain History of Present Illness The patient is a 62-year-old male admitted for generalized joint pain with elevated white blood cell count. I have performed an L4 laminectomy on him in the past. He was seen and examined. He is lying in bed resting comfortably. He denies any back pain. He denies any acute numbness tingling weakness or changes in bowel or bladder function. His only complaint is diffuse joint pain . He states that all of his joints hurt. He states he did have an episode of chills but denies any other fever nausea or vomiting. He states that he did find a tick on him a week ago after hunting. Physical Exam Vitals and Measurements T: 36.3 C (Oral) TMIN: 36.3 C (Oral) TMAX: 36.8 C (Oral) HR: 87 RR: 18 BP: 130/71 SpO2: 97% HT: 167.6 cm WT: 87.7 kg BMI: 30.58 Weight Current Weight Dosing Weight: 85.9 kg (04/22/23) Current Weight: 87.7 kg (04/23/23) Dosing Weight: 89.5 kg (04/22/23) A&O, NAD No tenderness of the posterior cervical thoracic or lumbar midline. There is a 4 inch vertical incision in the lumbar midline that is well-healed with scar formation. No tenderness erythema drainage or fluctuance Abdomen soft and nontender Extremities: Sensation and motor intact grossly without focal deficit. Pulses and reflexes are normal and symmetric. Lab Results 04/23 05:15 WBC: 13.9 H Hgb: 13.6 L Hct: 40.4 L Platelet: 305 Neutrophil %: 91.7 H Glucose Level: 160 H Sodium Level: 143 Potassium Level: 4.6 BUN: 17 Creatinine Lvl (s): 1.10 04/22 09:53 WBC: 17.3 H Hgb: 14.8 Hct: 43.7 Platelet: 363 Neutrophil %: 80.7 H Glucose Level: 114 Sodium Level: 138 Potassium Level: 4.3 BUN: 16 Creatinine Lvl (s): 1.28 Assessment/Plan Body aches I had a lengthy discussion with the patient. I reviewed his imaging with him. CT of the abdomen and pelvis dated 04/22/2023 showed no acute findings. I do recommend a lumbar MRI with and without contrast for further evaluation given his recent back surgery. Otherwise I recommend activity as tolerated. Up with assistance. Chronic renal disease, stage III Fall HTN (hypertension) Leukocytosis Polyarthralgia Tick bite Problem List/Past Medical History Ongoing Cervical spondylosis without myelopathy Chronic back pain Chronic neck pain Chronic renal disease, stage III GERD (gastroesophageal reflux disease) HTN (hypertension) Historical No qualifying data Procedure/Surgical History Lumbar spinal fusion: 03/2023 Cervical discectomy: 09/09/22 Deviated nasal septum: 2002 Electroshock therapy Colonoscopy Neck Nasal sinus endoscopy Medications Inpatient amLODIPine, 10 mg= 2 tab(s), Oral, qDay cefepime Dextrose, 25 gram(s)= 50 mL, IV Push, AsDirected, PRN doxycycline Effexor XR, 150 mg= 2 cap(s), Oral, qDayM guaiFENesin, 200 mg= 10 mL, Oral, q4h, PRN LORazepam, 1 mg= 0.5 mL, IV Push, Unscheduled Lovenox, 40 mg= 0.4 mL, Subcutaneous, qDay LR 1,000 mL, 1000 mL, Intravenous melatonin, 6 mg= 2 tab(s), Oral, qHS, PRN [place] 325- 5 mg oral tablet, 1 tab(s), Oral, q4h, PRN [place] 325- 5 mg oral tablet, 2 tab(s), Oral, q4h, PRN Pharmacy See ORDER COMMENTS, RN contacting [facility] about DC on vancomycin/pt allergi, Miscellaneous, qDay Tessalon Perles, 100 mg= 1 cap(s), Oral, TID, PRN tiZANidine, 4 mg= 1 tab(s), Oral, q8h, PRN Toradol, 15 mg= 0.5 mL, IV Push, q6h Tums, 500 mg= 1 tab(s), Chewed, TID, PRN Tylenol, 650 mg= 2 tab(s), Oral, q4h, PRN Tylenol, 650 mg= 2 tab(s), Oral, q4h, PRN Zofran, 4 mg= 2 mL, IV Push, q4h, PRN Home amLODIPine 10 mg oral tablet, 10 mg= 1 tab(s), Oral, qDay tiZANidine 4 mg oral tablet, 4 mg= 1 tab(s), Oral, q8h, PRN venlafaxine 150 mg oral capsule, extended release, 150 mg= 1 cap(s), Oral, qDayM Allergies codeine (vomiting) vancomycin Social History Smoking Status - 02/26/2016 Never smoker Alcohol - No Risk, 07/12/2021 Use: Past., 03/14/2019 Home/Environment Domestic Concerns: None. Lives In: Single level home, 1st floor bedroom, 1st floor bathroom, 1st floor laundry. Spouse Name: SANDY. Marital Status: ., 09/09/2022 Nutrition/Health Type of diet: Regular. Eating Difficulties None. Caffeine intake amount: 3 per week., 08/28/2022 Substance Abuse - No Risk, 07/12/2021 Use: Current. Type: Marijuana. Frequency: Daily., 04/07/2021 Use: Never., 03/14/2019 Tobacco - No Risk, 07/12/2021 Tobacco Use: Former smoker, quit more than 30 days ago., 03/14/2019 Family History Cancer: Mother and Father. Immunizations tetanus/diphth/pertuss (Tdap) adult/adol: 0.5 mL (04/25/15) Digitally Signed by CLAYTON ONEILL DO on 04/23/2023 07:05 AM [facility] 04-22-2023 Note Date of Service 04/22/23 Chief Complaint i have body aches since last night and burning when I urinate History of Present Illness 62-year-old male, who follows with Dr. Jennifer Araya with a past medical history significant for hypertension, chronic kidney disease stage III, and chronic back and neck pain. Patient presented to [facility] emergency department on 04/22/2023 with joint pain and generalized body aches. Patient states that he had a fall a couple of days ago in the back of his truck. He landed on his back. He had surgery on his lumbar spine mid March. Additionally patient found a tick embedded in the skin of his abdomen. He has been hunting but does not know how long it was there. He said that it was pretty deep and he burned it out. In the emergency department he was afebrile, tachycardic at 123 on arrival. This did normalize. Normotensive. White blood cell count 17,000, CMP unremarkable, ESR 25, CRP 5. CT abdomen and pelvis done with no acute findings. Noted subcutaneous fluid density identified inferiorly at the lumbosacral junction. May represent a small seroma. Approximately 2.4 cm. In the emergency department patient was given vancomycin and Zosyn. Additionally he was given a liter of normal saline. He was subsequently admitted for further evaluation. On exam patient denies any fever or chills. No headaches or dizziness. Admits fatigue, body aches and joint pain bilateral shoulders, wrists, hips, knees. No chest pain or palpitations. Denies any nausea or vomiting. Does admit of abdominal tenderness, generalized. Patient reports small open area left lower quadrant of abdomen where tick was embedded. Denies any urinary frequency, urgency, dysuria. Admits tenderness around lumbar incision. Review of Systems See HPI for specific ROS. All other systems reviewed and negative. Physical Exam Vitals and Measurements T: 36.7 C (Oral) TMIN: 36.7 C (Oral) TMAX: 36.8 C (Oral) HR: 103 RR: 18 BP: 139/80 SpO2: 92% HT: 167.6 cm WT: 85.9 kg BMI: 30.58 Weight Dosing Weight: 85.9 kg (04/22/23) Dosing Weight: 89.5 kg (04/22/23) GEN: Appears chronically ill EYES: No conjunctival erythema, drainage. EOMI EARS: Hearing grossly intact. NOSE: No nasal discharge. THROAT: Oral cavity and pharynx pink and moist. CHEST: Normal S1 and S2. Rhythm is regular. Clear to auscultation, without rales, rhonchi, wheezing. ABD: Positive bowel sounds x 4 quads. Soft, nondistended, nontender. EXT: No significant deformity or joint abnormality. No edema. Peripheral pulses intact. NEURO: Sensation grossly intact SKIN: Skin color normal. Left lower quadrant small open area where tick was embedded. No erythema migrans. Lumbar incision with slight erythema surrounding the incision. It is well-approximated. Top of the incision is edematous. There is a fluid collection noted on CT. PSYCH: The mental examination revealed the patient was alert and oriented x 4 Lab Results 04/22 09:53 WBC: 17.3 H Hgb: 14.8 Hct: 43.7 Platelet: 363 Neutrophil %: 80.7 H Glucose Level: 114 Sodium Level: 138 Potassium Level: 4.3 BUN: 16 Creatinine Lvl (s): 1.28 Imaging Results and Diagnostics XR Chest 1 View Result Date: April 22, 2023 Verified By: TALITA CARPENTER DO CLINICAL STATEMENT: IMPRESSION: No acute radiographic findings. CT Abd/Pelvis w/ IV Contrast Only Result Date: April 22, 2023 Verified By: JARETH CAMACHO MD CLINICAL STATEMENT: IMPRESSION: No acute findings in the abdomen or pelvis. Hepatic steatosis. I have personally reviewed the images of this examination and agree with theresident's findings and interpretation. EKG EC04/22/23: Sinus tachycardia Electronic Signature: MD ASHLEY CONTRERAS MD 04/22/2023 09:33:32 Assessment/Plan 1. Leukocytosis 2. Fall 3. Tick bite 4. Polyarthralgia 5. HTN (hypertension) 6. Chronic renal disease, stage III Leukocytosis white blood cell counts 17,000. No fevers. ESR 25 and CRP is 5. Urinalysis was negative. X-ray chest negative. CT abdomen and pelvis is negative for acute findings. There is evidence of a fluid collection at the lumbosacral junction that may represent a small seroma. Given patient's recent fall on his back in the back of a truck, concern for abscess. Obtain MRI lumbar spine with and without contrast. Start vancomycin and cefepime. Consult patient's surgeon, Dr. Oneill. Fall patient fell in the back of his truck and landed on his back. He did have quite a bit of pain. No loss of sensation. No loss of bowel or bladder function. Patient does have some pain at his surgical site. Tick bite patient has been hunting. 2 days ago he found a tick embedded in the skin of his abdomen. He burned it off. Patient is unsure how long it was there. Given polyarthralgias, obtain burdorferi PCR. Start Doxycycline 100mg BID. HTN- SBP goal 140 or less. Continue home antihypertensives. CKD- At baseline DVT prophylaxis: Lovenox Code Status:Full Code Plan of care discussed with patient. All questions answered. Patient verbalizes understanding is agreeable to plan of care. This dictation was performed using voice recognition software and may include grammatical and/or spelling errors. Problem List/Past Medical History Ongoing Cervical spondylosis without myelopathy Chronic back pain Chronic neck pain Chronic renal disease, stage III GERD (gastroesophageal reflux disease) HTN (hypertension) Historical No qualifying data Procedure/Surgical History Lumbar spinal fusion: 03/2023 Cervical discectomy: 09/09/22 Deviated nasal septum: 2002 Colonoscopy Electroshock therapy Neck Nasal sinus endoscopy Medications Home Medications (3) Active amLODIPine 10 mg oral tablet 10 mg = 1 tab(s), Oral, qDay tiZANidine 4 mg oral tablet 4 mg = 1 tab(s), PRN, Oral, q8h venlafaxine 150 mg oral capsule, extended release 150 mg = 1 cap(s), Oral, qDayM Allergies codeine (vomiting) vancomycin Social History Smoking Status - 02/26/2016 Never smoker Alcohol - No Risk, 07/12/2021 Use: Past., 03/14/2019 Home/Environment Domestic Concerns: None. Lives In: Single level home, 1st floor bedroom, 1st floor bathroom, 1st floor laundry. Spouse Name: SANDY. Marital Status: ., 09/09/2022 Nutrition/Health Type of diet: Regular. Eating Difficulties None. Caffeine intake amount: 3 per week., 08/28/2022 Substance Abuse - No Risk, 07/12/2021 Use: Current. Type: Marijuana. Frequency: Daily., 04/07/2021 Use: Never., 03/14/2019 Tobacco - No Risk, 07/12/2021 Tobacco Use: Former smoker, quit more than 30 days ago., 03/14/2019 Family History Cancer: Mother and Father. Immunizations tetanus/diphth/pertuss (Tdap) adult/adol: 0.5 mL (04/25/15) Code Status Code Status - Ordered -- 04/22/23 12:12:00 EST, Full Code, Constant Order Digitally Signed by RADHA RAND on 04/22/2023 09:54 PM [facility] 1. Leukocytosis 2. Fall 3. Tick bite 4. Polyarthralgia 5. HTN (hypertension) 6. Chronic renal disease, stage III Leukocytosis white blood cell counts 17,000. No fevers. ESR 25 and CRP is 5. Urinalysis was negative. X-ray chest negative. CT abdomen and pelvis is negative for acute findings. There is evidence of a fluid collection at the lumbosacral junction that may represent a small seroma. Given patient's recent fall on his back in the back of a truck, concern for abscess. Obtain MRI lumbar spine with and without contrast. Start vancomycin and cefepime. Consult patient's surgeon, Dr. Oneill. Fall patient fell in the back of his truck and landed on his back. He did have quite a bit of pain. No loss of sensation. No loss of bowel or bladder function. Patient does have some pain at his surgical site. Tick bite patient has been hunting. 2 days ago he found a tick embedded in the skin of his abdomen. He burned it off. Patient is unsure how long it was there. Given polyarthralgias, obtain burdorferi PCR. Start Doxycycline 100mg BID. HTN- SBP goal 140 or less. Continue home antihypertensives. CKD- At baseline DVT prophylaxis: Lovenox Code Status:Full Code Plan of care discussed with patient. All questions answered. Patient verbalizes understanding is agreeable to plan of care. This dictation was performed using voice recognition software and may include grammatical and/or spelling errors. Diagnostic Tests Pending * Lyme Disease Serology w/Reflex 04/23/23 [facility] 12-07-2023 Nurse Progress note Patient put his call light on. Complaining of itching all over with hives on feet. Dr Contreras aware. see orders. will monitor patient Digitally Signed by Audelia Esquivel RN on 04/22/2023 01:43 PM [facility]12-07-2023 Nurse Progress note Patient states he does not have a morphine allergy Digitally Signed by Audelia Esquivel RN on 04/22/2023 11:27 AM [facility]12-07-2023 Note ORIGINAL EXAMINATION: ONE XRAY VIEW OF THE CHEST04/22/2023 11:02 am COMPARISON: September 10, 2022 HISTORY: ORDERING SYSTEM PROVIDED HISTORY: Reason for Exam: SOB/cough/fever FINDINGS: Cardiac silhouette is stable. No focal consolidation, pleural effusion, pneumothorax, or vascular congestion. Postsurgical cervical changes are noted. No acute osseous abnormality. IMPRESSION: No acute radiographic findings. Interpreted by: Talita Carpenter DO Preliminary Report By: Talita Carpenter DO Electronically signed By Talita Carpenter DO Dictated Date: 04/22/2023 11:11:36 AM Prelim Date: 04/22/2023 11:12:37 AM Sign Date: 04/22/2023 11:12:37 AM Ordering Provider: [facility]12-07-2023 Note ORIGINAL EXAMINATION: CT OF THE ABDOMEN AND PELVIS WITH SKIGZIFK12/7/2023 11:02 am TECHNIQUE: CT of the abdomen and pelvis was performed with the administration of intravenous contrast. Multiplanar reformatted images are provided for review. Automated exposure control, iterative reconstruction, and/or weight based adjustment of the mA/kV was utilized to reduce the radiation dose to as low as reasonably achievable. COMPARISON: 10/17/2022 HISTORY: ORDERING SYSTEM PROVIDED HISTORY: Reason for Exam: pain FINDINGS: Noncontributory lung bases. No acute or suspicious bony or soft tissue findings. Degenerative spine. Bilateral fat containing inguinal hernias. Spine postoperative changes are present with some infiltrative change in the subcutaneous fat inferiorly. There is some subcutaneous fluid density identified inferiorly, at the lumbosacral junction. This may represent a small seroma. It is on the order of 2.4 cm in size. No air or gas is present within this area. Fatty liver, with some sparing seen along the gallbladder fossa. No focal liver lesions seen. Gallbladder, pancreas, spleen, and adrenals are within normal limits. There is a left renal cyst. Otherwise unremarkable kidneys. No acute or otherwise suspicious GI tract abnormality is observed. Appendix is normal. Atherosclerotic but nonaneurysmal abdominal aorta. No free air, free fluid, or adenopathy. Grossly unremarkable urinary bladder. Slightly enlarged prostate. IMPRESSION: No acute findings in the abdomen or pelvis. Hepatic steatosis. I have personally reviewed the images of this examination and agree with the resident's findings and interpretation. Interpreted by: Jareth Camacho MD Preliminary Report By: Supa Segura Electronically signed By Jareth Camacho MD Dictated Date: 04/22/2023 11:12:55 AM Prelim Date: 04/22/2023 11:20:29 AM Sign Date: 04/22/2023 12:01:00 PM [facility] NoteSinus tachycardia Electronic Signature: MD ASHLEY CONTRERAS MD 04/22/2023 09:33:32[facility] 06-03-2023 Hospital Discharge instructions Patient Education 10/17/2022 06:59:30 Kidney Stone w/ Colic Kidney Stone with Pain The sharp cramping pain on either side of your lower back and nausea/vomiting that you have are because of a small stone that has formed in the kidney. It is now passing down a narrow tube (ureter) on its way to your bladder. Once the stone reaches your bladder, the pain will often stop. But it maycome back as the stone continues to pass out of the bladder and through the urethra. The stone may pass in your urine stream in one piece. The size may be 1/16 inch to 1/4 inch (1 mm to 6 mm). Or, the stone may break up into melissa fragments that you may not even notice. Once you have had a kidney stone, you are at risk of getting another one in the future. There are 4types of kidney stones. Eighty percent are calcium stones mostly calcium oxalate but also some withcalcium phosphate. The other 3 types include uric acid stones, struvite stones (from a preceding infection), and rarely, cystine stones. Most stones will pass on their own, but may take from a few hours to a few days. Sometimes the stone is too large to pass by itself. In that case, the healthcare provider will need to use other ways to remove the stone. These techniques include: Lithotripsy. This uses ultrasound waves to break up the stone. Ureteroscopy. This pushes a basket-like instrument through the urethra and bladder and into the ureter to pull out the stone. Various types of direct surgery through the skin Home care The following are general care guidelines: Drink plenty of fluids. This means at least 12, 8-ounce glasses of fluid mostly water a day. Each time you urinate, do so in a jar. Pour the urine from the jar through the strainer and into the toilet. Continue doing this until 24 hours after your pain stops. By then, if there was a kidney stone, it should pass from your bladder. Some stones dissolve into sand-like particles and pass rightthrough the strainer. In that case, you won t ever see a stone. Save any stone that you find in the strainer and bring it to your healthcare provider to look at. It may be possible to stop certain types of stones from forming. For this reason, it is important to know what kind of stone you have. Try to stay as active as possible. This will help the stone pass. Don't stay in bed unless your pain keeps you from getting up. You may notice a red, pink, or brown color to your urine. This is normal while passing a kidney stone. If you develop pain, you may take ibuprofen or naproxen for pain, unless another medicine was prescribed. If you have chronic liver or kidney disease, talk with your healthcare provider before takingthese medicines. Also talk with your provider if you've had a stomach ulcer or GI bleeding. Preventing stones Each year for the next 5 to 7 years, you are at risk that a new stone will form. Your risk is a 50%chance over this time period. The risk is higher if you have a family history of kidney stones or have certain chronic illnesses like hypertension, obesity, or diabetes. But you can make changes to your lifestyle and diet that can lower your risk for another stone. Most kidney stones are made of calcium. The following is advice for preventing another calcium stone. If you don t know the type of stone you have, follow this advice until the cause of your stone isfound. Things that help: The most important thing you can do is to drink plenty of fluids each day. See home care above. Eat foods that contain phytates. These include wheat, rice, rye, barley, and beans. Phytates are substances that may lower your risk for any type of stone to form. Eat more fruits and vegetables. Choose those that are high in potassium. Eat foods high in natural citrate like fruit and low-sugar fruit juices. Having too little calcium in your diet can put you at risk for calcium kidney stones. Eat a normal amount of calcium in your diet and talk with your healthcare provider if you are taking calcium supplements. Cutting back on your calcium intake may raise your risk. New research shows that eating calcium-rich and oxalate-rich foods together lowers your risk for stones by binding the minerals in thestomach and intestines before they can reach the kidneys. Limit salt intake to 2 grams (1 teaspoon) per day. Use limited amounts when cooking, and don t add salt at the table. Processed and canned foods are usually high in salt. Spinach, rhubarb, peanuts, cashews, almonds, grapefruit, and grapefruit juice are all high oxalate foods. You should limit how much of these you eat. Or eat them with calcium-rich foods. These include dairy products, dark leafy greens, soy products, and calcium-enriched foods. Reducing the amount of animal meat and high protein foods in your diet may lower your risk for uricacid stones. Avoid excess sugar (sucrose) and fructose (sweetener in many soft drinks) in your diet. If you take vitamin C as a supplement, don't take more than 1,000 mg a day. A dietitian or your healthcare provider can give you information about changes in your diet that will help prevent more kidney stones from forming. Follow-up care Follow up with your healthcare provider, or as advised, if the pain lasts more than 48 hours. Talk with your provider about urine and blood tests to find out the cause of your stone. If you had an X-ray, CT scan, or other diagnostic test, you will be told of any new findings that may affect your care. Call 911 Call 911 if you have any of these: Weakness, dizziness, or fainting When to seek medical advice Call your healthcare provider right away if any of these occur: Pain that is not controlled by the medicine given Repeated vomiting or unable to keep down fluids Fever of 100.4 F (38 C) or higher, or as directed by your healthcare provider Passage of solid red or brown urine (can't see through it) or urine with lots of blood clots Foul-smelling or cloudy urine Unable to pass urine for 8 hours and increasing bladder pressure [id number] [employer]. [address] [place] [address], [place] [address]. All rights reserved. This information is not intended as a substitute for professional medical care. Always follow yourhealthcare professional's instructions. Follow Up Care 10/17/2022 05:11:23 With:TRAVIS AGEE MD, [facility] Address: [address] [place] [phone] When:2-4 days With:JENNIFER ARAYA MD Address: [address] [place] [phone] When:2-4 days [facility] 06-03-2023 Note Discharge Instructions Thank you for allowing [facility] to assist you with your healthcare needs. The following is importantdischarge information regarding your hospital visit. Diagnosis from Today's Visit Kidney stone What to Do Next Instructions from Your Care Team No qualifying data available. Post Acute Orders No qualifying data available. You Need to Schedule the Following Appointments Follow Up with TRAVIS AGEE MD, [employer] [facility] When Within 2-4 days Where: [address] [place] [phone] Follow Up with JENNIFER ARAYA MD When Within 2-4 days Where: [address] [place] [phone] Allergies codeine (vomiting) morphine (rash) Medications Please ask your primary doctor or pharmacist before taking any other medication not listed, including over the counter drugs, herbal medications, vitamins and or supplements as they may interact withyour home medications. What How Much When Why Instructions Last Dose New acetaminophen-hydrocodone ([place] 325- 5 mg oral tablet) 1 tab(s) by mouth Three (3) times a day Kidney stone Duration: 3 Days Printed Prescription New naproxen (naproxen 250 mg oral tablet) 1 tab(s) by mouth Two (2) times a day Duration: 4 Days Printed Prescription New ondansetron (ondansetron 4 mg oral tablet, disintegrating) 1 tab(s) by mouth Every 8 hours Duration: 3 Days Printed Prescription Unchanged amLODIPine (amLODIPine 10 mg oral tablet) 1 tab(s) by mouth Once a day Unchanged tiZANidine (tiZANidine 4 mg oral tablet) 1 tab(s) by mouth Every 8 hours as needed for as needed for muscle spasm Unchanged venlafaxine (venlafaxine 150 mg oral capsule, extended release) 1 cap by mouth Once a day with a meal Please take this list to your next doctor s visit. Bring all medications you take, including over the counter medications, herbals and other supplements with you to your doctor s visit. Patients and families are reminded to discard old lists and to update any records with all medication providers or retail pharmacies. Education Materials Kidney Stone with Pain The sharp cramping pain on either side of your lower back and nausea/vomiting that you have are because of a small stone that has formed in the kidney. It is now passing down a narrow tube (ureter) on its way to your bladder. Once the stone reaches your bladder, the pain will often stop. But it maycome back as the stone continues to pass out of the bladder and through the urethra. The stone may pass in your urine stream in one piece. The size may be 1/16 inch to 1/4 inch (1 mm to 6 mm). Or, the stone may break up into melissa fragments that you may not even notice. Once you have had a kidney stone, you are at risk of getting another one in the future. There are 4types of kidney stones. Eighty percent are calcium stones mostly calcium oxalate but also some withcalcium phosphate. The other 3 types include uric acid stones, struvite stones (from a preceding infection), and rarely, cystine stones. Most stones will pass on their own, but may take from a few hours to a few days. Sometimes the stone is too large to pass by itself. In that case, the healthcare provider will need to use other ways to remove the stone. These techniques include: Lithotripsy. This uses ultrasound waves to break up the stone. Ureteroscopy. This pushes a basket-like instrument through the urethra and bladder and into the ureter to pull out the stone. Various types of direct surgery through the skin Home care The following are general care guidelines: Drink plenty of fluids. This means at least 12, 8-ounce glasses of fluid mostly water a day. Each time you urinate, do so in a jar. Pour the urine from the jar through the strainer and into the toilet. Continue doing this until 24 hours after your pain stops. By then, if there was a kidney stone, it should pass from your bladder. Some stones dissolve into sand-like particles and pass rightthrough the strainer. In that case, you won t ever see a stone. Save any stone that you find in the strainer and bring it to your healthcare provider to look at. It may be possible to stop certain types of stones from forming. For this reason, it is important to know what kind of stone you have. Try to stay as active as possible. This will help the stone pass. Don't stay in bed unless your pain keeps you from getting up. You may notice a red, pink, or brown color to your urine. This is normal while passing a kidney stone. If you develop pain, you may take ibuprofen or naproxen for pain, unless another medicine was prescribed. If you have chronic liver or kidney disease, talk with your healthcare provider before takingthese medicines. Also talk with your provider if you've had a stomach ulcer or GI bleeding. Preventing stones Each year for the next 5 to 7 years, you are at risk that a new stone will form. Your risk is a 50%chance over this time period. The risk is higher if you have a family history of kidney stones or have certain chronic illnesses like hypertension, obesity, or diabetes. But you can make changes to your lifestyle and diet that can lower your risk for another stone. Most kidney stones are made of calcium. The following is advice for preventing another calcium stone. If you don t know the type of stone you have, follow this advice until the cause of your stone isfound. Things that help: The most important thing you can do is to drink plenty of fluids each day. See home care above. Eat foods that contain phytates. These include wheat, rice, rye, barley, and beans. Phytates are substances that may lower your risk for any type of stone to form. Eat more fruits and vegetables. Choose those that are high in potassium. Eat foods high in natural citrate like fruit and low-sugar fruit juices. Having too little calcium in your diet can put you at risk for calcium kidney stones. Eat a normal amount of calcium in your diet and talk with your healthcare provider if you are taking calcium supplements. Cutting back on your calcium intake may raise your risk. New research shows that eating calcium-rich and oxalate-rich foods together lowers your risk for stones by binding the minerals in thestomach and intestines before they can reach the kidneys. Limit salt intake to 2 grams (1 teaspoon) per day. Use limited amounts when cooking, and don t add salt at the table. Processed and canned foods are usually high in salt. Spinach, rhubarb, peanuts, cashews, almonds, grapefruit, and grapefruit juice are all high oxalate foods. You should limit how much of these you eat. Or eat them with calcium-rich foods. These include dairy products, dark leafy greens, soy products, and calcium-enriched foods. Reducing the amount of animal meat and high protein foods in your diet may lower your risk for uricacid stones. Avoid excess sugar (sucrose) and fructose (sweetener in many soft drinks) in your diet. If you take vitamin C as a supplement, don't take more than 1,000 mg a day. A dietitian or your healthcare provider can give you information about changes in your diet that will help prevent more kidney stones from forming. Follow-up care Follow up with your healthcare provider, or as advised, if the pain lasts more than 48 hours. Talk with your provider about urine and blood tests to find out the cause of your stone. If you had an X-ray, CT scan, or other diagnostic test, you will be told of any new findings that may affect your care. Call 911 Call 911 if you have any of these: Weakness, dizziness, or fainting When to seek medical advice Call your healthcare provider right away if any of these occur: Pain that is not controlled by the medicine given Repeated vomiting or unable to keep down fluids Fever of 100.4 F (38 C) or higher, or as directed by your healthcare provider Passage of solid red or brown urine (can't see through it) or urine with lots of blood clots Foul-smelling or cloudy urine Unable to pass urine for 8 hours and increasing bladder pressure [id number] [employer]. [address] [place] [address], [place] [address]. All rights reserved. This information is not intended as a substitute for professional medical care. Always follow yourhealthcare professional's instructions. Additional Information VACCINATE! IT SAVES LIVES! Members of the community who have not yet received the COVID-19 vaccine and would like to receive it can visit one of [facility] vaccine clinics. There are many vaccine clinic locations within the [facility]. For locations and available times, please visit www.gettheshot.coronavirus.[place].gov/. It is important to note that some COVID mobile vaccine clinics are held outdoors and may be canceled in rainy or stormy conditions. To learn more about pediatric vaccinations (ages 5-11), we invite you to visit the [facility] webpage. [email or web address]/[email or web address]-[email or web address] stions.htmlTo learn more about the COVID-19 vaccine, we invite you to visit the CDC website for a list of frequently asked questions. https://www.cdc.gov/coronavirus/2019-ncov/vaccines/faq.html [facility] Patient Portal Access Instructions: Stay connected with your healthcare team and access your personal medical information anytime with the [facility] Patient Portal. If you would like a full copy of your medical records please contact the [facility] Medical Records Department Wednesday through Wednesday between 8a.m. and 4:30p.m. Please follow the directions below to access the portal: 1.Access the email account you provided upon registration to the hospital.2.Look for an invitation email from [facility].3.Open the email and access the invitation link: Accept Invitation to [facility]4.Fill in the required salgado to create your account. Sign into [email or web address] with your username and password that you created in the above steps to stay up to date. You can then view a summary of results, a summary of your visits, and the ability to download your summaries to your computer or send the information securely to a physician. Remember that your healthcare information is confidential, so carefully consider who you will allow to register on the [facility] Patient Portal for access to your information. You can also access the [facility] Patient Portal on the [employer] john. Simply click on Health Records under [employer] and then click on the [facility] logo. HOW TO SAFELY DISPOSE OF PRESCRIPTION MEDICATIONS Please use one of the following methods to safely dispose of your unused medications. 1.Use a drug disposal kit: the drug disposal pouch allows you to safely discard your old and unuseddrugs. Ask your nurse to give you one when you are discharged.2.Visit a local take-back location: Many local pharmacies and police departments have programs that collect old and unwanted prescriptiondrugs. Call your local pharmacy or go to http://bit.Wizeline/5W1Ql8z to find one close to you.3.Make use of household items: Use cat litter or old coffee grounds to dispose medications if other options arenot available. Mix your drugs with these household products, seal them in an airtight container andthrow it into the garbage. Call [facility]: [phone] to be sure your drugs can be disposed of in this way. Some medicines may require a different approach.4.Never flush your medications down the toilet. IF YOU HAVE BEEN PRESCRIBED AN OPIOIDS FOR PAIN If you have been prescribed an opioid (such as hydrocodone, oxycodone or morphine), it is critical to understand the possible side effects and risks of opioid pain medications. Even when taken as directed, opioids can have several side effects including: Tolerance, meaning you might need to take more of a medication for the same pain relief. Nausea, vomiting and/or constipation. Sleepiness, dizziness, dry mouth, confusion, depression or itching. Physical dependence, meaning you have withdrawal symptoms when a medication is stopped ? this can develop within a few days. KNOW YOUR RESPONSIBILITIES It is important to know exactly how much and how often to take the opioid pain medications you are prescribed. Never take opioids in higher amounts or more often than prescribed. Do not combine opioids with alcohol or other drugs that cause drowsiness, such as benzodiazepines, also known as benzos,including diazepam and alprazolam, muscle relaxants or sleep aids. Never sell or share prescriptionopioids. This is illegal. Store opioids in a secure place and out of reach of others (including children, family, friends and visitors). The last page(s) of this document has been signed and retained as a CHART COPY Signatures Patient Education Materials Kidney Stone w/ Colic Medication Leaflets My discharge plan and instructions have been reviewed and explained to me and I,JYOTHI CAIN understand my current condition and have read and understand these discharge instructions. I have received a written copy of the plan/instructions. If I have questions, I am aware that I should contact my doctor. Patient/Supervisor Agency Appointments Signature: Date/Time: Relationship to Patient: Witness Name/Signature: Date/Time: [facility] [id number] Note ORIGINAL EXAMINATION: CT OF THE ABDOMEN AND PELVIS WITHOUT CONTRAST 10/17/2022 6:01 am TECHNIQUE: CT of the abdomen and pelvis was performed without the administration of intravenous contrast. Multiplanar reformatted images are provided for review. Automated exposure control, iterative reconstruction, and/or weight based adjustment of the mA/kV was utilized to reduce the radiation dose to as low as reasonably achievable. COMPARISON: 10/11/2014. HISTORY: ORDERING SYSTEM PROVIDED HISTORY: Reason for Exam: abdominal pain FINDINGS: Multilevel degenerative changes of the spine. No acute osseous abnormality. Small sliding hiatal hernia. Otherwise, the included thoracic structures are unremarkable. Fatty liver. The gallbladder is unremarkable. The spleen, pancreas, adrenal glands are unremarkable. There is subtle right nephromegaly, dilatation of the collecting system, and increased perinephric stranding due to a small punctate stone at the right ureterovesicular junction. No hydronephrosis or nephrolithiasis on the left. 2.3 cm hypodense lesion in the inferior pole of left kidney represents a simple renal cyst. No acute GI tract pathology. Normal appendix. No abdominal lymphadenopathy, free fluid, or intraperitoneal free air identified. Collapsed urinary bladder limiting evaluation. Small bilateral fat containing inguinal hernias. IMPRESSION: A 2 mm stone at the right UVJ causes mild right hydronephrosis. No evidence of stone disease on the left. Hepatic steatosis. I have personally reviewed the images of this examination, and agree with the resident's findings and interpretation. Interpreted by: Cruz George MD Preliminary Report By: Yonatan Jaramillo Electronically signed By Cruz George MD Dictated Date: 10/17/2022 6:03:53 AM Prelim Date: 10/17/2022 6:09:44 AM Sign Date: 10/17/2022 6:12:55 AM Ordering Provider: [facility]06-03-2023 Note ORIGINAL EXAMINATION: CT OF THE ABDOMEN AND PELVIS WITHOUT CONTRAST 10/17/2022 6:01 am TECHNIQUE: CT of the abdomen and pelvis was performed without the administration of intravenous contrast. Multiplanar reformatted images are provided for review. Automated exposure control, iterative reconstruction, and/or weight based adjustment of the mA/kV was utilized to reduce the radiation dose to as low as reasonably achievable. COMPARISON: 10/11/2014. HISTORY: ORDERING SYSTEM PROVIDED HISTORY: Reason for Exam: abdominal pain FINDINGS: Multilevel degenerative changes of the spine. No acute osseous abnormality. Small sliding hiatal hernia. Otherwise, the included thoracic structures are unremarkable. Fatty liver. The gallbladder is unremarkable. The spleen, pancreas, adrenal glands are unremarkable. There is subtle right nephromegaly, dilatation of the collecting system, and increased perinephric stranding due to a small punctate stone at the right ureterovesicular junction. No hydronephrosis or nephrolithiasis on the left. 2.3 cm hypodense lesion in the inferior pole of left kidney represents a simple renal cyst. No acute GI tract pathology. Normal appendix. No abdominal lymphadenopathy, free fluid, or intraperitoneal free air identified. Collapsed urinary bladder limiting evaluation. Small bilateral fat containing inguinal hernias. IMPRESSION: A 2 mm stone at the right UVJ causes mild right hydronephrosis. No evidence of stone disease on the left. Hepatic steatosis. I have personally reviewed the images of this examination, and agree with the resident's findings and interpretation. Interpreted by: Cruz George MD Preliminary Report By: Yonatan Jaramillo Electronically signed By Cruz George MD Dictated Date: 10/17/2022 6:03:53 AM Prelim Date: 10/17/2022 6:09:44 AM Sign Date: 10/17/2022 6:12:55 AM Ordering Provider: [facility]04-28-2023 Note Date of Service 09/11/2022 Subjective 62-year-old male with past medical history significant for HTN, CKD stage III, chronic pain, fibromyalgia. Patient presented to [facility] on 09/09/2022 for elective anterior cervical discectomy by . He is postoperative day #2. Overnight patient was complaining of increased difficulty with swallowing however this morning that has resolved. Patient states that he feels much better. No difficulty swallowing. He was able to eat breakfast. He has also been able to maintain adequate oxygen saturations on room air. On exam today, pt denies any fever or chills. No headache or dizziness. No further difficulty swallowing. Denies chest pain, palpitations. No cough, dyspnea, sputum production. Denies N/V/D/C. No melena/hematochezia. No dysuria or hematuria. No new paresthesias. Continued chronic pain. Objective Vitals and Measurements T: 36.8 C (Oral) TMIN: 36.4 C (Oral) TMAX: 37.1 C (Oral) HR: 91(Monitored) RR: 16 BP: 135/88 SpO2: 94% Intake and Output 7AM Yesterday to 7AM Today Intake and Output (Last 24 hours) Intake Oral Intake 120.00 Administration Information 381.00 Output Urine Voided 750.00 Stool Count 0.00 Urine Count 1.00 Total Summary Total Intake 501.00 Total Output 750.00 Fluid Balance -249.00 Physical Exam GEN: Appears chronically ill THROAT: Oral cavity and pharynx pink and moist. CHEST: Normal S1 and S2. Rhythm is regular. Clear to auscultation, without rales, rhonchi, wheezing. ABD: Positive bowel sounds x 4 quads. Soft, nondistended, nontender. EXT: No significant deformity or joint abnormality. No edema. Peripheral pulses intact. NEURO: Sensation grossly intact SKIN: Surgical dressing in place with serosanguineous drainage. PSYCH: The mental examination revealed the patient was alert and oriented x 4 Weight Dosing Weight: 83.5 kg (09/09/22) Dosing Weight: 83.5 kg (09/09/22) Medications Medications (17) Active Scheduled: (6) amLODIPine 5 mg tablet 10 mg 2 tab(s), Oral, qDay docusate sodium 100 mg Capsule 100 mg 1 cap(s), Oral, BID docusate-senna (Senokot S) 50 mg-8.6 mg Tablet 2 tab(s), Oral, BID famotidine 20 mg tablet 20 mg 1 tab(s), Oral, qDay magnesium hydroxide 8% Suspension 30 mL UD 30 mL, Oral, Daily venlafaxine 75 mg ER capsule 150 mg 2 cap(s), Oral, qDayM Continuous: (1) Lactated Ringers 1,000 mL 1,000 mL, Intravenous, 100 mL/hr PRN: (10) acetaminophen 325 mg Tablet 650 mg 2 tab(s), Oral, q4h acetaminophen-HYDROcodone 325-5 mg tablet 1 tab(s), Oral, q4h albuterol - ipratropium 2.5 mg-0.5 mg/3 mL Inhal Nuzhat UD 3 mL, Inhalation, q2hRT diphenhydramine 25 mg tablet 25 mg 1 tab(s), Oral, q6h diphenhyDRAMINE 50 mg/mL (1 mL) INJ 25 mg 0.5 mL, IV Push, q6h labetalol 5 mg/mL (20mL) MDV 20 mg 4 mL, IV Push, q4h morphine 4 mg/mL 1mL INJ 4 mg 1 mL, IV Push, q4h ondansetron 2 mg/ 1 mL 2 mL INJ 4 mg 2 mL, IV Push, q8h scopolamine 1.5 mg (1 mg / 72 hours patch) 1 patch(es), Transdermal, q72h sodium biphosphate-sodium phosphate 19 gm-7 gm Enema 133 mL, Rectal, qDay Lab Results 09/11 08:13 WBC: 12.3 H Hgb: 13.8 L Hct: 39.7 L Platelet: 275 Neutrophil %: 82.3 H Glucose Level: 115 Sodium Level: 140 Potassium Level: 4.2 BUN: 22 H Creatinine Lvl (s): 0.93 09/10 05:28 WBC: 11.0 H Hgb: 14.3 Hct: 40.7 L Platelet: 244 Neutrophil %: 88.0 H Glucose Level: 149 H Sodium Level: 139 Potassium Level: 5.0 BUN: 12 Creatinine Lvl (s): 1.01 Imaging Results and Diagnostics XR Chest 2 Views Result Date: September 10, 2022 Verified By: EMEKA CRUZ MD A CLINICAL STATEMENT: IMPRESSION: Minimal linear right basilar airspace disease favoring atelectasis. I have personally reviewed the images of this examination and agree with theresident's findings and interpretation. Assessment/Plan 1. Cervical spondylosis 2. Hypertension 3. Chronic renal disease, stage III 4. GERD (gastroesophageal reflux disease) Cervical spondylosis, s/p anterior cervical discectomy postoperative day #2. Management per primaryteam. Steroids were initiated by surgeon due to patient reports of difficulty swallowing. Patient is in no acute distress. Oxygenating well. This morning he reports feeling much better with no difficulty swallowing. He has been able to finish his breakfast. Patient did require supplemental oxygen. X-ray showed atelectasis. He was encouraged to use his incentive spirometer hourly. Demonstrated accurate use. Lungs were clear to auscultation. HTN- SBP goal 140 or less. Continue home antihypertensives. CKD stage III at baseline GERD continue Pepcid daily. Hypoxia resolved. DVT prophylaxis: SCDs Labs, diagnostics, and progress notes reviewed as noted in HPI Code Status: Full code Plan of care discussed with patient. All questions answered. Patient verbalizes understanding is agreeable to plan of care. Thank you for requesting our participation in the care of your patient. We will continue to follow during their hospitalization. This dictation was performed using voice recognition software and may include grammatical and/or spelling errors. Digitally Signed by RADHA RAND on 09/11/2022 11:33 AM [facility]04-28-2023 Note Discharge Instructions Thank you for allowing [facility] to assist you with your healthcare needs. The following is importantdischarge information regarding your hospital visit. Your Care Team Clayton Oneill DO [facility] Your Diagnosis Cervical spondylosis Hypertension Chronic renal disease, stage III GERD (gastroesophageal reflux disease) What to do next Instructions From Your Doctor Activity: Do not drive, smoke, operate machinery, return to work, or engage in activities that require you nikunj alert when taking narcotics, pain relievers or muscle relaxants No reaching overhead Do not turn your head from side to side, turn your upper body Wear both BETHANIE hose continuously for 6 weeks Remove during shower time and replaced with a clean pair Wash with soap and water, then hang dry for next use No heavy lifting, pulling, or pushing more than 10 pounds for 3 months Must wear your cervical collar at all times Call Dr. Oneill office if: You have any difficulty breathing, swallowing, or swelling of your throat You have a sore throat that does not go away with ice chips, lozenges, pain meds etc. You fall at home, call immediately You experience numbness and/or tingling in your arms or legs that is changed or increased after discharge You develop chills, and/or fever greater than 100 degrees You have drainage from your incision, especially bloody or thick yellow You have increased redness or swelling around the incision You have severe or continued headaches, especially if no headaches were present in the hospital You start having increased pain that is not relieved by your medicine You run out of pain medication Care for your incision: Never put anything on your incision, no creams lotions or antibiotic ointment No hot tubs, swimming, or soaking in water for 6 weeks, or until your incision is healed To shower, cover your incision with a 4 x 4, Tegaderm dressing, and you must wear your cervical collar Change the dressing to your neck daily using a dry 4 x 4 and tape Wear your bone growth stimulator if given 1 daily as instructed If you need to shave using electric razor, do not tilt your head back or shave over the incision General reminders: Do not take any medications, herbal, prescription, or [id number] unless prescribed for the next 12 weeks Remember to take your pain medication and/or muscle relaxants as ordered to keep your pain under control No NSAIDs for 3 months, will interfere with the fusion. Swelling around the nerves can cause continued numbness and tingling for days or weeks after surgery Follow Up Appointments Follow Up with CLAYTON ONEILL DO, Orthopedic When 08/31/2022 08:45 AM EDT Why: This is your post-op appointment. Follow-up as scheduled. Where: [address] [place] [address] [address] [facility] [place] [address]- [phone] The Following Activity and Diet Have Been Ordered for You No qualifying data available. Discharge Diet - Ordered -- Type of Diet: Soft Diet, 09/11/22 9:36:00 EDT The Following Equipment Has Been Ordered for You Discharge Home Equipment Discharge Home Equipment - Ordered -- Walker; with wheels, 6 month(s), Front wheeled walker, 09/10/22 13:21:00 EDT Allergies codeine (vomiting) morphine (rash) Medications Please ask your primary doctor or pharmacist before taking any other medication not listed, including over the counter drugs, herbal medications, vitamins and or supplements as they may interact withyour home medications. What How Much When Why Instructions Last Dose Unchanged acetaminophen- hydrocodone ([place] 325- 5 mg oral tablet) 1 tab(s) by mouth Every 6 hours as needed for for pain Cervical spondylosis Duration: 7 Days Pickup at [id number] 09/11 @ 915am Unchanged amLODIPine (amLODIPine 10 mg oral tablet) 1 tab(s) by mouth Once a day 09/11 @ 8am Unchanged tiZANidine (tiZANidine 4 mg oral tablet) 1 tab(s) by mouth Every 8 hours as needed for as needed for muscle spasm not given Unchanged venlafaxine (venlafaxine 150 mg oral capsule, extended release) 1 cap by mouth Once a day with a meal 09/11 @ 8am Pharmacy Information [facility] #[id number]: [address], [place] [phone] Please take this list to your next doctor s visit. Bring all medications you take, including over the counter medications, herbals and other supplements with you to your doctor s visit. Patients and families are reminded to discard old lists and to update any records with all medication providers or retail pharmacies. Medication Leaflets acetaminophen and hydrocodone (a SEET a MIN oh fen and grace droe KOE done) Hycet, Lorcet, [place], Verdrocet, Vicodin, Xodol, Zamicet What is the most important information I should know about acetaminophen and hydrocodone? MISUSE OF OPIOID MEDICINE CAN CAUSE ADDICTION, OVERDOSE, OR . Keep the medication in a place where others cannot get to it. Taking opioid medicine during may cause life-threatening withdrawal symptoms in the . Fatal side effects can occur if you use opioid medicine with alcohol, or with other drugs that cause drowsiness or slow your breathing. Stop taking this medicine and call your doctor right away if you have skin redness or a rash that spreads and causes blistering and peeling. What is acetaminophen and hydrocodone? Acetaminophen and hydrocodone is a combination medicine used to relieve moderate to severe pain. Acetaminophen and hydrocodone contains an opioid medicine, and may be habit-forming. Acetaminophen and hydrocodone may also be used for purposes not listed in this medication guide. What should I discuss with my healthcare provider before taking acetaminophen and hydrocodone? You should not use this medicine if you are allergic to acetaminophen or hydrocodone, or if you have: severe asthma or breathing problems; or a blockage in your stomach or intestines. Tell your doctor if you have ever had: breathing problems, sleep apnea (breathing stops during sleep); liver disease; a drug or alcohol addiction; kidney disease; a head injury or seizures; urination problems; or problems with your thyroid, pancreas, or gallbladder. If you use opioid medicine while you are , your baby could become dependent on the drug. This can cause life-threatening withdrawal symptoms in the baby after it is born. Babies born dependent on opioids may need medical treatment for several weeks. Ask a doctor before using opioid medicine if you are . Tell your doctor if you notice severe drowsiness or slow breathing in the nursing baby. How should I take acetaminophen and hydrocodone? Follow all directions on your prescription label. Never take this medicine in larger amounts, or for longer than prescribed. An overdose can damage your liver or cause . Tell your doctor if you feel an increased urge to use more of this medicine. Never share this medicine with another person, especially someone with a history of drug abuse or addiction. MISUSE CAN CAUSE ADDICTION, OVERDOSE, OR . Keep the medicine in a place where others cannot get to it. Selling or giving away this medicine is against the law. Measure liquid medicine carefully. Use the dosing syringe provided, or use a medicine dose-measuring device (not a kitchen spoon). If you need surgery or medical tests, tell the doctor ahead of time that you are using this medicine. You should not stop using this medicine suddenly. Follow your doctor's instructions about tapering your dose. Store at room temperature away from moisture and heat. Keep track of your medicine. You should be aware if anyone is using it improperly or without a prescription. Do not keep leftover opioid medication. Just one dose can cause in someone using this medicine accidentally or improperly. Ask your pharmacist where to locate a drug take-back disposal program.If there is no take-back program, flush the unused medicine down the toilet. What happens if I miss a dose? Since this medicine is used for pain, you are not likely to miss a dose. Skip any missed dose if itis almost time for your next dose. Do not use two doses at one time. What happens if I overdose? Seek emergency medical attention or call the Poison Help line at . An overdose of this medicine can be fatal, especially in a child or other person using the medicine without a prescription. Overdose symptoms may include nausea, vomiting, sweating, severe drowsiness, pinpoint pupils, slow breathing, or no breathing. Your doctor may recommend you get naloxone (a medicine to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 Urinary Elimination Voiding, no difficulties Skin Temperature Warm Skin Description [place], Normal for ethnicity Skin Integrity Intact Mucous Membrane Color [place] Skin Moisture General Dry Hand Left 09/09/2022 20 gauge Peripheral IV Activity: Insert new site Peripheral IV Dressing Condition: Clean, Dry, Intact Peripheral IV Dressing Activity: Applied, Transparent dressing Peripheral IV Line Status/Patency: Flushes easily, Continuous infusion Peripheral IV Line Care: Secured with tape Peripheral IV Site Condition: No complications Peripheral IV Equipment: Extension set, PRN Adaptor Peripheral IV Number of Attempts: 1 Neurological Symptoms Patient denies Extremity Movement Equal Characteristics of Speech Clear Level of Consciousness Alert Strength All Extremities Moderate Tone All Extremities Normal Left Upper Extremity Sensation Numbness Right Upper Extremity Sensation Numbness Left Lower Extremity Sensation Intact Right Lower Extremity Sensation Intact Affect/Behavior Appropriate, Calm, Cooperative Orientation Oriented x 4 Allergies Yes Consent Form Signed Yes Patient Dressed In Hospital gown CHG Preoperative Wash/Wipe Night before procedure, Day of procedure History & Physical Update On Chart Yes History & Physical On Chart Yes Obstructive Sleep Apnea Assess Completed Yes Orientation Assessment Oriented x 4 Belongings At Bedside Glasses, Pants, Shirt, Shoes, Socks, Undergarments Activity Status ADL Awake, Resting NPO Status Maintained Standard Safety ID band on, Allergy Band on, Call device within reach, Bed in low position, Wheels locked, Phone within reach, personal items within reach, Non-Slip footwear Allergy Band on and Verified Yes Patient ID Band on and Verified Yes Implants Verified Yes Pacemaker/AICD Verified Yes Anesthesia Consent Signed Yes Blood Consent Signed Yes Last Fluid Intake 09/09/2022 15:00 Last Food Intake 09/08/2022 15:00 Last Void 09/09/2022 5:00 09/09/2022 6:19 EDT Privacy Restrictions Requested None Sensory Deficits Hearing deficit, left ear, Hearing deficit, right ear Safety Brochure Information Reviewed Yes [facility] Video Viewed No Teaching Evaluation No further teaching needed Admission Note-Nursing Same Day Patient History (Modified) . Assessment and Plan [place] [employer] Anesthesiologists (ASA) physical status classification: Class III. Anesthetic Preoperative Plan Anesthetic technique: General. Maintenance airway: Oral endotracheal tube. Postoperative pain management: Per surgeon. Risks discussed: nausea, vomiting, sore throat, dental injury, hypotension, allergic reaction, serious complications. Informed consent: signed by patient. Digitally Signed by ANNAMARIA SMITH on 09/09/2022 06:48 AM [facility]03-28-2023 Hospital Discharge instructions Follow Up Care 08/11/2022 11:29:29 With:CLAYTON ONEILL DO, Orthopedic Address: [address] [address], [address] [facility] [place] [address]- [phone] When:09/30/2022 08:45:00 Comments:This is your post-op appointment. Follow-up as scheduled. [facility] 02-18-2023 SARS-CoV-2 (COVID-19) RNA NICOLA+probe Ql (Nph) Negative *NA* (07/04/22 6:12 PM)AO Auto Urine [id number] Hospital Discharge instructions Patient Education 06/14/2022 05:00:50 Shoulder Sprain Shoulder Sprain A sprain is a stretching or tearing of the ligaments that hold a joint together. A sprain may take up to 8 weeks to fully heal, depending on how severe it is. Moderate to severe shoulder sprains are treated with a sling or shoulder immobilizer. Minor sprains can be treated without any special support. Home care The following guidelines will help you care for your injury at home: If a sling was given to you, leave it in place for the time advised by your healthcare provider. Ifyou aren t sure how long to wear it, ask for advice. If the sling becomes loose, adjust it so that your forearm is level with the ground. Your shoulder should feel well supported. Put an ice pack on the injured area for 20 minutes every 1 to 2 hours the first day. You can make your own ice pack by putting ice cubes in a plastic bag. A bag of frozen peas or something similar works well too. Wrap the bag in a thin towel. Continue with ice packs 3 to 4 times a day for the next 2 to 3 days. Then use the pack as needed to ease pain and swelling. You may use acetaminophen or ibuprofen to control pain, unless another pain medicine was prescribed. If you have chronic liver or kidney disease, talk with your healthcare provider before using thesemedicines. Also talk with your provider if you ve had a stomach ulcer or gastrointestinal bleeding. Shoulder joints become stiff if left in a sling for too long. You should start range of motion exercises about 7 to 10 days after the injury. Talk with your provider to find out what type of exercises to do and how soon to start. Follow-up care Follow up with your healthcare provider, or as advised. Any X-rays you had today don t show any broken bones, breaks, or fractures. Sometimes fractures dont show up on the first X-ray. Bruises and sprains can sometimes hurt as much as a fracture. These injuries can take time to heal completely. If your symptoms don t improve or they get worse, talk with your provider. You may need a repeat X-ray or other treatments. When to seek medical advice Call your healthcare provider right away if any of these occur: Shoulder pain or swelling in your arm that gets worse Fingers become cold, blue, numb, or tingly Large amount of bruising of the shoulder or upper arm Fever or chills [id number] [employer]. [address] [place] [address]. All rights reserved. This information is not intended as a substitute for professional medical care. Always follow yourhealthcare professional's instructions. Follow Up Care 06/14/2022 04:02:13 With:KARLA WHALEY MD Address: [address] [place] [address] [phone] When:2-4 days With:JENNIFER ARAYA MD Address: [address] [place] [phone] When:2-4 days [facility] 01-29-2023 Note Discharge Instructions Thank you for allowing [facility] to assist you with your healthcare needs. The following is importantdischarge information regarding your hospital visit. Diagnosis from Today's Visit Shoulder pain What to Do Next Instructions from Your Care Team No qualifying data available. Post Acute Orders No qualifying data available. You Need to Schedule the Following Appointments Follow Up with KARLA WHALEY MD When Within 2-4 days Where: [address] [place] [address] [phone] Follow Up with JENNIFER ARAYA MD When Within 2-4 days Where: [address] [place] [phone] Allergies codeine (vomiting) morphine (rash) Medications Please ask your primary doctor or pharmacist before taking any other medication not listed, including over the counter drugs, herbal medications, vitamins and or supplements as they may interact withyour home medications. What How Much When Why Instructions Last Dose New cyclobenzaprine (cyclobenzaprine 5 mg oral tablet) 1 tab(s) by mouth Three (3) times a day Shoulder pain Duration: 10 Days Printed Prescription New naproxen (naproxen 250 mg oral tablet) 1 tab(s) by mouth Two (2) times a day as needed for as needed for pain Shoulder pain Duration: 10 Days Printed Prescription Please take this list to your next doctor s visit. Bring all medications you take, including over the counter medications, herbals and other supplements with you to your doctor s visit. Patients and families are reminded to discard old lists and to update any records with all medication providers or retail pharmacies. Education Materials Shoulder Sprain A sprain is a stretching or tearing of the ligaments that hold a joint together. A sprain may take up to 8 weeks to fully heal, depending on how severe it is. Moderate to severe shoulder sprains are treated with a sling or shoulder immobilizer. Minor sprains can be treated without any special support. Home care The following guidelines will help you care for your injury at home: If a sling was given to you, leave it in place for the time advised by your healthcare provider. Ifyou aren t sure how long to wear it, ask for advice. If the sling becomes loose, adjust it so that your forearm is level with the ground. Your shoulder should feel well supported. Put an ice pack on the injured area for 20 minutes every 1 to 2 hours the first day. You can make your own ice pack by putting ice cubes in a plastic bag. A bag of frozen peas or something similar works well too. Wrap the bag in a thin towel. Continue with ice packs 3 to 4 times a day for the next 2 to 3 days. Then use the pack as needed to ease pain and swelling. You may use acetaminophen or ibuprofen to control pain, unless another pain medicine was prescribed. If you have chronic liver or kidney disease, talk with your healthcare provider before using thesemedicines. Also talk with your provider if you ve had a stomach ulcer or gastrointestinal bleeding. Shoulder joints become stiff if left in a sling for too long. You should start range of motion exercises about 7 to 10 days after the injury. Talk with your provider to find out what type of exercises to do and how soon to start. Follow-up care Follow up with your healthcare provider, or as advised. Any X-rays you had today don t show any broken bones, breaks, or fractures. Sometimes fractures dont show up on the first X-ray. Bruises and sprains can sometimes hurt as much as a fracture. These injuries can take time to heal completely. If your symptoms don t improve or they get worse, talk with your provider. You may need a repeat X-ray or other treatments. When to seek medical advice Call your healthcare provider right away if any of these occur: Shoulder pain or swelling in your arm that gets worse Fingers become cold, blue, numb, or tingly Large amount of bruising of the shoulder or upper arm Fever or chills [phone] [employer]. [address] [place] [address]. All rights reserved. This information is not intended as a substitute for professional medical care. Always follow yourhealthcare professional's instructions. Additional Information VACCINATE! IT SAVES LIVES! Members of the community who have not yet received the COVID-19 vaccine and would like to receive it can visit one of [facility] vaccine clinics. There are many vaccine clinic locations within the [facility]. For locations and available times, please visit [email or web address].[email or web address]. It is important to note that some COVID mobile vaccine clinics are held outdoors and may be canceled in rainy orstormy conditions. To learn more about pediatric vaccinations (ages 5-11), we invite you to visit the [facility] webpage. https://www.[facility].org/pages/1620-Wwejo-Xxvsxlnrqel-Dosiujknsc-Syyyc-Nbg stions.htmlTo learn more about the COVID-19 vaccine, we invite you to visit the [facility] website for a list of frequently asked questions. https://[email or web address]/assets/Lcjeqmfi-yjb-Dntlenla/wiccu-Onkekra-Quyspfqqgf _Asked-Questions.pdf [facility] Patient Portal Access Instructions: Stay connected with your healthcare team and access your personal medical information anytime with the [facility] Patient Portal. If you would like a full copy of your medical records please contact the [facility] Medical Records Department Wednesday through Wednesday between 8a.m. and 4:30p.m. Please follow the directions below to access the portal: 1.Access the email account you provided upon registration to the [facility].2.Look for an invitation email from [facility].3.Open the email and access the invitation link: Accept Invitation to [facility]4.Fill in the required salgado to create your account. Sign into [email or web address] with your username and password that you created in the above steps to stay up to date. You can then view a summary of results, a summary of your visits, and the ability to download your summaries to your computer or send the information securely to a physician. Remember that your healthcare information is confidential, so carefully consider who you will allow to register on the [facility] Patient Portal for access to your information. You can also access the [facility] Patient Portal on the [employer] john. Simply click on Health Records under [employer] and then click on the [employer] logo. HOW TO SAFELY DISPOSE OF PRESCRIPTION MEDICATIONS Please use one of the following methods to safely dispose of your unused medications. 1.Use a drug disposal kit: the drug disposal pouch allows you to safely discard your old and unuseddrugs. Ask your nurse to give you one when you are discharged.2.Visit a local take-back location: Many local pharmacies and police departments have programs that collect old and unwanted prescriptiondrugs. Call your local pharmacy or go to http://[employer]Wizeline/6S0Bi8a to find one close to you.3.Make use of household items: Use cat litter or old coffee grounds to dispose medications if other options arenot available. Mix your drugs with these household products, seal them in an airtight container andthrow it into the garbage. Call [facility]: [phone] to be sure your drugs can be disposed of in this way. Some medicines may require a different approach.4.Never flush your medications down the toilet. IF YOU HAVE BEEN PRESCRIBED AN OPIOIDS FOR PAIN If you have been prescribed an opioid (such as hydrocodone, oxycodone or morphine), it is critical to understand the possible side effects and risks of opioid pain medications. Even when taken as directed, opioids can have several side effects including: Tolerance, meaning you might need to take more of a medication for the same pain relief. Nausea, vomiting and/or constipation. Sleepiness, dizziness, dry mouth, confusion, depression or itching. Physical dependence, meaning you have withdrawal symptoms when a medication is stopped ? this can develop within a few days. KNOW YOUR RESPONSIBILITIES It is important to know exactly how much and how often to take the opioid pain medications you are prescribed. Never take opioids in higher amounts or more often than prescribed. Do not combine opioids with alcohol or other drugs that cause drowsiness, such as benzodiazepines, also known as benzos,including diazepam and alprazolam, muscle relaxants or sleep aids. Never sell or share prescriptionopioids. This is illegal. Store opioids in a secure place and out of reach of others (including children, family, friends and visitors). The last page(s) of this document has been signed and retained as a CHART COPY Signatures Patient Education Materials Shoulder Sprain Medication Leaflets My discharge plan and instructions have been reviewed and explained to me and I,JYOTHI CAIN understand my current condition and have read and understand these discharge instructions. I have received a written copy of the plan/instructions. If I have questions, I am aware that I should contact my doctor. Patient/Supervisor Agency Appointments Signature: Date/Time: Relationship to Patient: Witness Name/Signature: Date/Time: [facility]01-29-2023 Note ORIGINAL EXAMINATION: TWO XRAY VIEWS OF THE RIGHT SHOULDER 06/14/2022 4:32 am COMPARISON: None. HISTORY: ORDERING SYSTEM PROVIDED HISTORY: Reason for Exam: Fall FINDINGS: Degenerative changes of the right acromioclavicular joint are noted. No acute fracture or dislocation. IMPRESSION: No acute findings. Interpreted by: Lewis Fowler MD Preliminary Report By: Lewis Fowler MD Electronically signed By Lewis Fowler MD Dictated Date: 06/14/2022 4:38:57 AM Prelim Date: 06/14/2022 4:42:18 AM Sign Date: 06/14/2022 4:42:18 AM Ordering Provider: EBER RASHEED [facility]01-29-2023 Note ORIGINAL EXAMINATION: TWO XRAY VIEWS OF THE RIGHT SHOULDER 06/14/2022 4:32 am COMPARISON: None. HISTORY: ORDERING SYSTEM PROVIDED HISTORY: Reason for Exam: Fall FINDINGS: Degenerative changes of the right acromioclavicular joint are noted. No acute fracture or dislocation. IMPRESSION: No acute findings. Interpreted by: Lewis Fowler MD Preliminary Report By: Lewis Fowler MD Electronically signed By Lewis Fowler MD Dictated Date: 06/14/2022 4:38:57 AM Prelim Date: 06/14/2022 4:42:18 AM Sign Date: 06/14/2022 4:42:18 AM Ordering Provider[facility] Miscellaneous Notes* Telephone Encounter - Luisa Jay APRN.CNP - 10/07/2021 3:14 PM EDT The following approved medication requests have been transmitted electronically. Signed Prescriptions Disp Refills tiZANidine (ZANAFLEX) 4 mg tablet 90 tablet 5 Sig: Take 1 tablet by mouth three times daily. LÓPEZ: No Authorizing Provider: LUISA JAY APRN.CNP * Telephone Encounter - Luci Munson - 10/07/2021 1:14 PM EDT Pharmacy verified in [employer]. Patient has been identified by name and date of : Yes Patient aware RX will be sent to pharmacy. No need to notify patient. Pharmacy phones for refill(s): Pending Prescriptions Disp Refills TIZANIDINE 4 MG TABLET 90 tablet 5 Sig: Take 1 tablet by mouth three times daily. LÓPEZ: No Date of last office visit : Visit date not found Date of next office visit : Visit date not found Last 2 Encounter Wt Readings: Date: Wt: 08/16/2020 85.7 kg (189 lb) 08/06/2020 84.9 kg (187 lb 1.6 oz) Please advise. Luci Munson [facility] Miscellaneous Notes* Telephone Encounter - Luisa Jay APRN.CNP - 09/19/2021 10:17 AM EDT Patient is due for yearly visit. May schedule in office or virtual The following approved medication requests have been transmitted electronically. Signed Prescriptions Disp Refills tiZANidine (ZANAFLEX) 4 mg tablet 90 tablet 5 Sig: Take 1 tablet by mouth three times daily. LÓPEZ: No Authorizing Provider: LUISA JAY APRN.CNP * Telephone Encounter - Pebbles Calderon RN - 09/19/2021 10:08 AM EDT Provider: Dr. Alek Sequeira and Luisa Jay CNP pharmacy requesting refill via fax. Please E-Scribe Last OV: 08/06/2020 with Chapo Jay CNP Future OV: N/A Last prescribed: 04/07/2022 Pending Prescriptions Disp Refills TIZANIDINE 4 MG TABLET 90 tablet 5 Sig: Take 1 tablet by mouth three times daily. LÓPEZ: No Request sent to provider to review Pebbles Calderon RN documented [facility] Miscellaneous Notes* Telephone Encounter - Luisa Jay APRN.CNP - 09/09/2021 2:23 PM EDT The following approved medication requests have been transmitted electronically. Signed Prescriptions Disp Refills pregabalin (LYRICA) 50 mg capsule 30 capsule 2 Sig: Take 1 capsule by mouth daily at bedtime for 30 days. CLARA Class: C-V LÓPEZ: No Authorizing Provider: LUISA JAY APRN.CNP * Telephone Encounter - Pebbles Calderon RN - 09/09/2021 11:30 AM EDT Provider: Dr. Sequeira and Luisa Jay CNP pharmacy requesting refill. Please Fax Last OV: 08/06/2020 with Chapo Jay CNP Future OV: N/A Last prescribed: 06/06/2021 Pending Prescriptions Disp Refills PREGABALIN 50 MG CAPSULE 30 capsule 2 Sig: Take 1 capsule by mouth daily at bedtime for 30 days. CLARA Class: C-V LÓPEZ: No Request sent to provider to review Pebbles Calderon RN [facility] Discharge instructions Patient Education 07/12/2021 17:35:25 Chest Wall Pain, Costochondritis Chest Wall Pain: Costochondritis The chest pain that you have had today is caused by costochondritis. This condition is caused by aninflammation of the cartilage joining your ribs to your breastbone. It is not caused by heart or lung problems. Your healthcare team has made sure that the chest pain you feel is not from a life threatening cause of chest pain such as heart attack, collapsed lung, blood clot in the lung, tear in the aorta, or esophageal rupture. The inflammation may have been brought on by a blow to the chest, lifting heavy objects, intense exercise, or an illness that made you cough and sneeze a lot. It often occurs during times of emotional stress. It can be painful, but it is not dangerous. It usually goesaway in 1 to 2 weeks. But it may happen again. Rarely, a more serious condition may cause symptoms similar to costochondritis. That s why it s important to watch for the warning signs listed below. Home care Follow these guidelines when caring for yourself at home: If you feel that emotional stress is a cause of your condition, try to figure out the sources of that stress. It may not be obvious. Learn ways to deal with the stress in your life. This can include regular exercise, muscle relaxation, meditation, or simply taking time out for yourself. You may use acetaminophen, ibuprofen, or naproxen to control pain, unless another pain medicine wasprescribed. If you have liver or kidney disease or ever had a stomach ulcer, talk with your healthcare provider before using these medicines. You can also help ease pain by using a hot, wet compress or heating pad. Use this with or without amedicated skin cream that helps relieves pain. Do stretching exercise as advised by your provider. Take any prescribed medicines as directed. Follow-up care Follow up with your healthcare provider, or as advised, if you do not start to get better in the next 2 days. When to seek medical advice Call your healthcare provider right away if any of these occur: A change in the type of pain. Call if it feels different, becomes more serious, lasts longer, or spreads into your shoulder, arm, neck, jaw, or back. Shortness of breath or pain gets worse when you breathe Weakness, dizziness, or fainting Cough with dark-colored sputum (phlegm) or blood Abdominal pain Dark red or black stools Fever of 100.4 F (38 C) or higher, or as directed by your healthcare provider [id number] [employer]. [address] [place] [address]. All rights reserved. This information is not intended as a substitute for professional medical care. Always follow yourhealthcare professional's instructions. Follow Up Care 07/12/2021 15:03:45 With:JENNIFER ARAYA MD Address: [address] [place] [phone] When:2-4 days [facility] 12-20-2021 Hospital Discharge instructions Patient Education 05/05/2021 07:53:25 Monitored Anesthesia Care, Care After Monitored Anesthesia Care, Care After These instructions provide you with information about caring for yourself after your procedure. Your health care provider may also give you more specific instructions. Your treatment has been plannedaccording to current medical practices, but problems sometimes occur. Call your health care provider if you have any problems or questions after your procedure. What can I expect after the procedure? After your procedure, you may: Feel sleepy for several hours. Feel clumsy and have poor balance for several hours. Feel forgetful about what happened after the procedure. Have poor judgment for several hours. Feel nauseous or vomit. Have a sore throat if you had a breathing tube during the procedure. Follow these instructions at home: For at least 24 hours after the procedure: Have a responsible adult stay with you. It is important to have someone help care for you until youare awake and alert. Rest as needed. Do not: ?Participate in activities in which you could fall or become injured. ?Drive. ?Use heavy machinery. ?Drink alcohol. ?Take sleeping pills or medicines that cause drowsiness. ?Make important decisions or sign legal documents. ?Take care of children on your own. Eating and drinking Follow the diet that is recommended by your health care provider. If you vomit, drink water, juice, or soup when you can drink without vomiting. Make sure you have little or no nausea before eating solid foods. General instructions Take qkxv-ios-mfzfwfc and prescription medicines only as told by your health care provider. If you have sleep apnea, surgery and certain medicines can increase your risk for breathing problems. Follow instructions from your health care provider about wearing your sleep device: ?Anytime you are sleeping, including during daytime naps. ?While taking prescription pain medicines, sleeping medicines, or medicines that make you drowsy. If you smoke, do not smoke without supervision. Keep all follow-up visits as told by your health care provider. This is important. Contact a health care provider if: You keep feeling nauseous or you keep vomiting. You feel light-headed. You develop a rash. You have a fever. Get help right away if: You have trouble breathing. Summary For several hours after your procedure, you may feel sleepy and have poor judgment. Have a responsible adult stay with you for at least 24 hours or until you are awake and alert. This information is not intended to replace advice given to you by your health care provider. Make sure you discuss any questions you have with your health care provider. Document Released: 08/23/2016 Document Revised: 08/01/2018 Document Reviewed: 08/23/2016 [employer] Patient Education 2020 [employer] 05/05/2021 07:53:25 Facet Joint Block, Care After Facet Joint Block, Care After This sheet gives you information about how to care for yourself after your procedure. Your health care provider may also give you more specific instructions. If you have problems or questions, contact your health care provider. What can I expect after the procedure? After the procedure, it is common to have: Some tenderness over the injection sites for 2 days after the procedure. A temporary increase in blood sugar if you have diabetes. Follow these instructions at home: Medicines Take rykb-bul-inofykn and prescription medicines only as told by your health care provider. You may need to limit pain medicine within the first 4 6 hours after the procedure. Managing pain, stiffness, and swelling If the injection site is tender, try putting ice on the area. To do this: Put ice in a plastic bag. Place a towel between your skin and the bag. Leave the ice on for 20 minutes, 2 3 times a day. General instructions Keep track of the amount of pain relief you feel and how long it lasts. Remove your bandages (dressings) the morning after the procedure. Check your injection site every day for signs of infection. Check for: ?Redness, swelling, or pain. ?Fluid or blood. ?Warmth. ?Pus or a bad smell. For the first 24 hours after the procedure: ?Do not apply heat near or over the injection sites. ?Do not take a bath or soak in water, such as in a pool or jaramillo. ?Do not drive or use heavy machinery unless approved by your health care provider. ?Avoid activities that need a lot of effort. Rest as told by your health care provider. Return to your normal activities as told by your health care provider. Ask your health care provider what activities are safe for you. If you have diabetes, monitor your blood sugar levels as told by your health care provider. Keep all follow-up visits as told by your health care provider. This is important. Contact a health care provider if: You have diabetes and your blood sugar is above 180 mg/dL. You have fluid or blood coming from your injection site. Your injection site feels warm to the touch. Get help right away if: You have a fever or chills. You have worsening pain or swelling around an injection site. You have pus or a bad smell coming from your injection site. There are red streaks around your injection site. You have severe pain that is not controlled by your medicines. You have a headache, stiff neck, nausea, or vomiting. Your eyes become very sensitive to light. You have weakness, paralysis, or tingling in your arms or legs that was not there before the procedure. You have trouble urinating. You have trouble breathing. These symptoms may represent a serious problem that is an emergency. Do not wait to see if the symptoms will go away. Get medical help right away. Call your local emergency services (911 in the [place] Do not drive yourself to the hospital. Summary After this procedure, it is common to have tenderness over the injection site and a brief increase in blood sugar if you have diabetes. Take duyy-yfm-dizbciz and prescription medicines only as told by your health care provider. Return to your normal activities as told by your health care provider. Ask your health care provider what activities are safe for you. Contact a health care provider if fluid is coming from an injection site or if there is significantbleeding or swelling at an injection site. Get help right away if you have weakness, paralysis, or tingling in your arms or legs that was not there before the procedure. This information is not intended to replace advice given to you by your health care provider. Make sure you discuss any questions you have with your health care provider. Document Released: 04/19/2013 Document Revised: 08/24/2019 Document Reviewed: 04/10/2019 [employer] Patient Education 2020 [employer] Follow Up Care 04/22/2021 13:57:10 With:NORIS ELLIS MD Address: [phone] When: Unknown Comments:follow up in office as directed [facility] 04-02-2021 NoteHNO ID: [id number] Author: Margaret Jensen (Pa) Service: ? Author Type: Physician Liquid Fertilizer Servicer Type: Progress Notes Filed: 08/16/2020 2:57 PM Note Text: HPI Jyothi Cain is a 60 year old male here today for Recheck (GERD, Epigastric pain EGD 07/05/20- Xray 08/07/20 ). EGD 07/05/2020 was normal. Nexium has been working very well for GERD sx. Was placed on Zanaflex due to degenerative findings in the thoracic spine with noticeable improvement in chest pain. Has made several diet changes, stopped NSAIDs completely. BMs are 2-3 per day, normal, soft, no blood. OV 06/28/2020 Jyothi Cian is a 60 year old male who presents for GERD and midsternal chest pain radiates to back. Started smoking from age 10 to 38. Has had intermittent epigastric pain for the past month that will radiate to back, left side of chest, no N/V, fevers. Also complains of chest tightness with cough. Taking Protonix BID and states this is not helping. States he felt better with Prilosec. BMs 2-3 per day, normal, soft, no blood. Recent labs 06/24/2020 to monitor CKD. Cr 1.60. Patient states this is improved was at 2 a few months ago. ? Denies EtOH Smokes pippa daily Record Review: [facility] records reviewed Current Outpatient Medications Medication Sig - pregabalin (LYRICA) 50 mg capsule Take 1 capsule by mouth daily at bedtime for 30 days. - tiZANidine (ZANAFLEX) 4 mg tablet Take 1 tablet by mouth three times daily. - esomeprazole (NEXIUM) 40 mg capsule Take 1 capsule by mouth once daily. One hour before meals - DULoxetine (CYMBALTA) 30 mg capsule Take 1 capsule by mouth once daily. - buPROPion XL (WELLBUTRIN XL) 150 mg 24 hr tablet Take 1 tablet by mouth once daily. No current facility-administered medications for this visit. ALLERGIES Allergen Reactions - Codeine Diarrhea, Vomiting - Morphine Rash Reddness, itching Social History Tobacco Use - Smoking status: Former Smoker Packs/day: 1.50 Years: 20.00 Pack years: 30.00 Types: Cigarettes Quit date: 05/17/1984 Years since quittin.2 - Smokeless tobacco: Never Used Vaping Use - Vaping Use: Never used Substance Use Topics - Alcohol use: No - Drug use: Yes Types: Marijuana Comment: occasional marijuana use PAST MEDICAL HISTORY Diagnosis Date - abdominal pain - Back pain - Depression 05/25/2017 - Depressive disorder, not elsewhere classified - GERD (gastroesophageal reflux disease) - Marijuana use 07/16/2015 PAST SURGICAL HISTORY Procedure Laterality Date - ANTERIOR INTERBODY FUSION, CERVICAL 2005 [facility] - COLONOSCOP W/ OR W/O [facility]C 07/24/2015 Colonoscopy mac - COLONOSCOP W/ OR W/O [facility] SPEC 10/19/2018 Colonoscopy - COLONOSCOPY 08/2011 - COLONOSCOPY W/BX 10/19/2003 Unremarkable colonoscopy, 10 year follow-up - EGD 03/13/2010 no abnoralities - EGD 07/05/2020 normal - EGD W/O [facility] SPECIMEN W/BX 10/19/2003 Gastritis - EGD W/O OR W/BRUSH/WASH 09/23/2011 EGD - EGD W/O OR W/BRUSH/WASH 07/24/2015 EGD mac - EGD W/O OR W/BRUSH/WASH 10/19/2018 EGD - PAST SURGICAL HISTORY OF [facility] injections into neck - PAST SURGICAL HISTORY OF cervical fusion - REMOVAL OF TONSILS,<12 Y/O Tonsillectomy - SEPTOPLASTY 1994 FAMILY HISTORY Problem Relation Age of Onset - Cancer Mother Lung - Cancer Father Throat - Ischemic Heart Disease Maternal Grandfather - Stroke Paternal Grandmother - Colon Cancer No Family History REVIEW OF SYSTEMS Review of Systems Constitutional: Negative for appetite change, chills, diaphoresis, fatigue, fever and unexpected weight change. Gastrointestinal: Negative for abdominal pain, anal bleeding, blood in stool, constipation, diarrhea, nausea, rectal pain and vomiting. Gas All other systems reviewed and are negative. PHYSICAL EXAM BP 118/84 Pulse 86 Ht 167.6 cm (5' 6 ) Wt 85.7 kg (189 lb) BMI 30.51 kg/m? BMI 30.51 kg/(m2) Physical Exam Constitutional: General: He is not in acute distress. Appearance: He is not diaphoretic. HENT: Head: Normocephalic and atraumatic. Eyes: Conjunctiva/sclera: Conjunctivae normal. Pupils: Pupils are equal, round, and reactive to light. Cardiovascular: Rate and Rhythm: Normal rate and regular rhythm. Heart sounds: Normal heart sounds. No murmur heard. No friction rub. No gallop. Pulmonary: Effort: Pulmonary effort is normal. No respiratory distress. Breath sounds: Normal breath sounds. No wheezing or rales. Chest: Chest wall: No tenderness. Abdominal: General: Bowel sounds are normal. There is no distension. Palpations: Abdomen is soft. There is no mass. Tenderness: There is no abdominal tenderness. There is no guarding or rebound. Musculoskeletal: General: Normal range of motion. Cervical back: Normal range of motion and neck supple. Skin: General: Skin is warm and dry. Neurological: Mental Status: He is alert and oriented to person, place, and time. Psychiatric: Mo (more content not included)...[facility]05-09-2012 History of Past illness Narrative* Problem Noted Date Resolved Date Internal hemorrhoids without mention of complica tion 09/23/2011 02/04/2012 Acute gastritis without mention of hemorrhage 02/04/2012 documented as of this encounter (statuses as of 09/09/2021) [place] [address]-09-2012 History of Past illness Narrative* Problem Noted Date Resolved Date Internal hemorrhoids without mention of complica tion 09/23/2011 02/04/2012 Acute gastritis without mention of hemorrhage 02/04/2012 documented as of this encounter (statuses as of 09/19/2021) [facility] of Past illness Narrative* Problem Noted Date Resolved Date Internal hemorrhoids without mention of complica tion 09/23/2011 02/04/2012 Acute gastritis without mention of hemorrhage 02/04/2012 documented as of this encounter (statuses as of 10/07/2021) [facility] History of Past illness Narrative* Problem Noted Date Resolved Date Internal hemorrhoids without mention of complica tion 09/23/2011 02/04/2012 Acute gastritis without mention of hemorrhage 02/04/2012 documented as of this encounter (statuses as of 10/16/2021) [facility]ments Appointment Date:06/04/2021 09:15:00 AM Scheduled Provider:ZACK RODRIGUEZ Location:[facility] PM Appointment Type:PM OV [facility] Evaluation + Plan note Future Appointments [facility] Evaluation note* Diagnosis Midline thoracic back pain, unspecified chronicity Spinal stenosis of cervical region Spinal stenosis in cervical region Fibromyalgia Mylagia and myositis, unspecified [facility] No data available for this section [facility] Hospital Discharge instructions No data available for this section [facility] Note* MELISSA MUNSON DO: SIGN, VERIFY Event Display: EKG [ED [facility]] - CV Authored Date: [id number] [facility] Progress note No data available for this section [facility] Summary Purpose Family History No Family History Records FoundNo Family History Records FoundNo Family History Records FoundNo Family History Records Found No data available for this section No Family History Records Found Advance Directives No Advanced Directives Records FoundDocuments on File Type Date Recorded Patient Supervisor Agency Appointments Expl anation Advance Directive(s) 07/05/2020 10:26 AM Advance Directive(s) 10/19/2018 12:38 PM Advance Directive(s) 06/14/2017 7:56 AM Advance Directive(s) 06/09/2017 8:32 AM Advance Directive(s) 05/24/2017 9:04 PM Advance Directive(s) 07/24/2015 11:25 AM Advance Directive(s) 07/11/2015 5:38 PM Additional Source Comments (unrecognized sect ion and content) No Status Records FoundNo Status Records FoundNo Status Records FoundNo Status Records FoundNo Status Records Found INFORMATION SOURCE (unrecogn ized section and content) DATE CREATED AUTHOR AUTHOR'S ORGANIZ ATION 10/22/2018 [facility] DATE CREATED AUTHOR AUTHOR'S ORGANIZ ATION 11/10/2018 [facility] DATE CREATED AUTHOR AUTHOR'S ORGANIZ ATION 08/09/2021 [facility] DATE CREATED AUTHOR AUTHOR'S ORGANIZ ATION 05/02/2023 [facility] [place] ([place]) Source Comments (unrecognize d section and content) In the event this informatio n is protected by the Federal Confidentiality of Alcohol and Drug Abuse Patient Records regulations: The Federal rules restrict any use of the information to criminally investigate or prosecute any alcohol or drug abuse patient.[facility] the event this information is protected by the Federal Confidentiality of Alcohol and Drug Abuse Patient Records regulations: The Federal rules restrict any use of the information to criminally investigate or prosecute any alcohol or drug abuse patient.[facility] the event this information is protected by the Federal Confidentiality of Alcohol and Drug Abuse Patient Records regulations: The Federal rules restrict any use of the information to criminally investigate or prosecute any alcohol or drug abuse patient.[facility] the event this information is protected by the Federal Confidentiality of Alcohol and Drug Abuse Patient Records regulations: The Federal rules restrict any use of the information to criminally investigate or prosecute any alcohol or drug abuse patient.[facility] Reason for Visit (unrecogniz ed section and content) Reason Onset Date Comments Refill Request 09/19/2021 Reason Onset Date Comments Refill Request 10/07/2021 Reason Onset Date Comments Refill Request 10/14/2021 Care Teams (unrecognized sec tion and content) Implementation Technician Relationship Specialty Start Date End Date Jennifer Araya MD [address] [place], [place] [id number] PCP - General Internal Medicine 06/28/20 Implementation Technician Relationship Specialty Start Date End Date Jennifer Araya MD [address] [place] [id number] PCP - General Internal Medicine 06/28/20 Implementation Technician Relationship Specialty Start Date End Date Jennifer Araya MD [address] [place] [address] PCP - General Internal Medicine 06/28/20 Care Team (unrecognized sect ion and content) Care Team Personnel Name: JENNIFER ARAYA MD Member Role: Primary Care Physician Address: Address: [facility] [place] [address]- Name: EBER RASHEED MD Position: ED Physician Member Role: Attending Physician Address: Address: [facility] [address] [place] [address]- Care Team Related Persons Name: DANIELA CAIN Name: NONE, Care Team Personnel Name: JENNIFER ARAYA MD Member Role: Primary Care Physician Address: Address: [address] [place] [address] [address] [place] Name: AMINA DELACRUZ DO Position: Resident Member Role: Resident Address: Address: [address] [place], [place] [id number] Name: MELISSA MUNSON DO Position: ED Physician Member Role: ED Physician Address: Address: [facility] [address] [place] [address] Care Team Related Persons Name: DANIELA CAIN Name: NONE, FOR RECORDS PERTAINING TO PATIENTS WHO ARE OR HAVE BEEN ENROLLED IN A CHEMICAL DEPENDENCY/SUBSTANCEABUSE PROGRAM, SOME INFORMATION MAY BE OMITTED. This clinical summary was aggregated from multiple sources. Caution should be exercised in using it in the provision of clinical care. This summary normalizes information from multiple sources, and as a consequence, information in this document may materially change the coding, format and clinical context of patient data. In addition, data may be omitted in some cases. CLINICAL DECISIONS SHOULD BE BASED ON THE PRIMARY CLINICAL RECORDS. [employer] provides no warranty or guarantee of the accuracy or completeness of information in this document.
[2023-07-15 17:07] LABS: Endomysial Antibody IgA Negative (Negative); Immunoglobulin A 276 mg/dL (61-437); t-Transglutaminase IgA <2 U/mL (0-3)
== END | disposition home or self-care (01) ==
LOC: MTLAB 16:21
PROVIDERS: PCP Internal Medicine; Referring Provider Internal Medicine Gastroenterology; Visit Provider Internal Medicine Gastroenterology
DX: R19.7 Diarrhea, unspecified (principal)
CPT/HCPCS: 36415; 82784; 83516; 85027; 85652; 86140; 86255

== ENCOUNTER → 2023-10-19 | Outpatient (CLI) | payer OTHER, SELFPAY ==
[2023-10-19 12:38] LABS: Vitamin B12 402 pg/mL (211-911); Vitamin D,25 Hydroxy 11.7 ng/mL
[2023-10-19 13:27] LABS: ALB/GLOB Ratio 0.9 RATIO (0.9-2.4); AST(SGOT) 14 U/L (15-37); Alanine Aminotransfer ALT/SGPT 32 U/L (16-61); Albumin, Serum 3.6 g/dL (3.2-5.0); Alkaline Phosphatase 99 U/L (45-117); Anion Gap 7 (5-15); BUN 17 mg/dL (7-18); Calcium,Total 8.8 mg/dL (8.5-10.1); Chloride 109 mmol/L (98-107); Creatinine, Serum 1.13 mg/dL (0.70-1.30); EST Glomerular Filtration Rate 70 mL/min (>60); Est Glom Filt Rate - Afr Amer 85 mL/min (>60); Globulin 3.8 g/dL (2.2-4.2); Glucose 114 mg/dL (74-106); Magnesium 2.4 mg/dL (1.6-2.6); Potassium 3.9 mmol/L (3.5-5.1); Protein, Total 7.4 g/dL (6.4-8.2); Sodium Level 139 mmol/L (136-145)
== END | disposition home or self-care (01) ==
LOC: BIMLAB 10:04
PROVIDERS: Nurse Practitioner; PCP Internal Medicine; Referring Provider Internal Medicine; Visit Provider Internal Medicine
DX: R25.2 Cramp and spasm (principal); W19.XXXA Unspecified fall, initial encounter; R20.2 Paresthesia of skin
CPT/HCPCS: 36415; 80053; 82306; 82607; 83735

== ENCOUNTER → 2024-02-09 | Outpatient (CLI) | payer MEDICARE, MEDICAID, SELFPAY ==
[2024-02-09 12:21] LABS: Absolute Neutrophil Count 3.3 X10^3/uL (2.0-7.7); Basophil# 0.05 X10^3/uL; Basophil% 0.8 % (0-1); Eosinophil# 0.35 X10^3/uL; Eosinophils% 5.8 % (0-5); Hematocrit 43.4 % (40-54); Hemoglobin 14.2 g/dL (13.0-16.5); Lymphocyte % 31.3 % (19-41); Mean Corp Hgb Conc 32.7 g/dL (32-36); Mean Corpuscular Hgb 30.3 pg (27.0-32.0); Mean Corpuscular Volume 92.7 fL (80-94); Mean Platelet Vol. 10.4 fl (6.2-12.0); Monocyte# 0.52 X10^3/uL; Monocyte% 8.6 % (0-10); NRBC Flagged by Analyzer 0 % (0-5); Neutrophil # 3.25 X10^3/uL (2.7-7.7); Neutrophil % 53.3 % (47-70); Platelet Count 278 K/mm3 (150-450); RBC Distribution Width CV 12.7 % (11.6-14.6); RBC Distribution Width SD 43.7 fl (35.1-43.9); Red Blood Count 4.68 M/mm3 (4.6-6.2); White Blood Count 6.1 K/mm3 (4.4-11.0)
[2024-02-09 12:34] LABS: Vitamin D,25 Hydroxy 29.9 ng/mL
[2024-02-09 12:41] LABS: Cholesterol 190 mg/dL (200); High Density Lipoprotein 32 mg/dL; Triglycerides 235 mg/dL; Very Low Density Lipoprotein 47 mg/dL (5-40)
== END | disposition home or self-care (01) ==
PROVIDERS: PCP Internal Medicine; Referring Provider Physician Assistant; Visit Provider Physician Assistant
DX: E78.5 Hyperlipidemia, unspecified (principal); I10 Essential (primary) hypertension; E55.9 Vitamin D deficiency, unspecified
CPT/HCPCS: 36415; 80061; 82306; 85025

== ENCOUNTER → 2024-03-29 | Outpatient (CLI) | payer MEDICARE, MEDICAID, SELFPAY ==
--- NOTE | 2024-03-29 13:53 | RAD_ITS ---
STUDY: X-RAY CHEST REASON FOR EXAM: Male, 63 years old. SOB TECHNIQUE: PA and lateral views of the chest. COMPARISON: 04/01/2023 FINDINGS: Status post anterior cervical discectomy and fusion lower cervical spine. The lungs are clear and expanded. There is no demonstrated pleural abnormality. Normal size heart. Normal mediastinum and tyler. Normal visualized pulmonary arteries. Normal visualized aortic arch and descending thoracic aorta. Normal visualized thoracic spine. Normal visualized ribs, clavicles, and shoulders. There is no demonstrated abnormality of the visualized soft tissue structures of the upper abdomen. RAD/Chest PA and Lateral IMPRESSION: No active disease. Electronically Signed: Billy Robles MD at 10:56 [facility] ,
[2024-03-29 14:39] LABS: Absolute Lymphocyte Count 2.14 X10^3/uL (0.83-4.51); Absolute Neutrophil Count 4.1 X10^3/uL (2.0-7.7); Basophil# 0.06 X10^3/uL; Basophil% 0.8 % (0-1); Eosinophil# 0.32 X10^3/uL; Eosinophils% 4.5 % (0-5); Hematocrit 40.7 % (40-54); Hemoglobin 13.9 g/dL (13.0-16.5); Lymphocyte # 2.14 X10^3/ul (0.83-4.51); Lymphocyte % 29.9 % (19-41); Mean Corp Hgb Conc 34.2 g/dL (32-36); Mean Corpuscular Volume 90.6 fL (80-94); Mean Platelet Vol. 9.6 fl (6.2-12.0); Monocyte# 0.56 X10^3/uL; Monocyte% 7.8 % (0-10); NRBC Flagged by Analyzer 0 % (0-5); Neutrophil # 4.05 X10^3/uL (2.7-7.7); Neutrophil % 56.6 % (47-70); Platelet Count 309 K/mm3 (150-450); RBC Distribution Width CV 12.3 % (11.6-14.6); RBC Distribution Width SD 40.5 fl (35.1-43.9); Red Blood Count 4.49 M/mm3 (4.6-6.2); White Blood Count 7.2 K/mm3 (4.4-11.0)
[2024-03-29 15:00] LABS: Anion Gap 0 (5-15); BUN 20 mg/dL (7-18); BUN/Creat Ratio 17.5 RATIO (10-20); Calcium,Total 8.3 mg/dL (8.5-10.1); Chloride 110 mmol/L (98-107); Creatinine, Serum 1.14 mg/dL (0.70-1.30); EST Glomerular Filtration Rate 69 mL/min (>60); Est Glom Filt Rate - Afr Amer 84 mL/min (>60); Glucose 88 mg/dL (74-106); Potassium 4.1 mmol/L (3.5-5.1); Sodium Level 143 mmol/L (136-145)
== END | disposition home or self-care (01) ==
LOC: RAD 13:52
PROVIDERS: PCP Internal Medicine; Referring Provider Internal Medicine Cardiovascular Disease; Visit Provider Internal Medicine Cardiovascular Disease
DX: R07.9 Chest pain, unspecified (principal); R53.83 Other fatigue; R06.02 Shortness of breath
CPT/HCPCS: 36415; 71046; 80048; 85025

== ENCOUNTER 2024-04-03 08:26 | Day surgery (SDC) | payer MEDICARE, MEDICAID, SELFPAY ==
[2024-03-31 09:07] VITALS: BMI 31.9
--- NOTE | 2024-04-03 10:00 | CL.D_ITS ---
Patient Name: JYOTHI SAUCEDA Study Date: 04/03/2024 Performing: David Arreola MD Ht: 66 inches 167.64 cm : 1960 Wt: 198 lbs 89.81 kg Age: 63 Gender: male BSA: 1.99 PROCEDURE(S) PERFORMED DC01-(21327)LHC/COR/LV CLINICAL PROFILE AND INDICATIONS Indications: Suspected CAD Heart Failure: None Stress/Imaging Stress/Image Study Performed: No CAD Presentations: Unstable angina. CONCLUSIONS Normal coronary arteries Normal LV size, wall motion,and systolic function RECOMMENDATIONS Medical therapy DESCRIPTION OF PROCEDURE The patient arrived to the procedure lab. The risks and benefits of the procedure as well as a full description of our services here and current unavailability of surgical backup were fully explained to the patient and/or their significant other prior to the catheterization. The Timeout was completed, verifying the correct patient and procedure. The patient's procedural site was prepped and draped in the usual fashion. Local anesthetic was given subcutaneously to right radial region with Lidocaine 2%. Using a modified Seldinger technique, arterial access was obtained via the right radial artery, a 6Fr sheath was inserted. primo gatica rn Right Coronary Artery selective angiography was then performed in multiple views using a 5 Fr. 4.0 [place] catheter. Left Coronary Artery selective angiography was performed in multiple views using a 5 Fr. JL3.5 catheter. Left Ventriculography was performed in [place] S[place]IAG[place] projection using a 5 Fr. [place] catheter. LV to AO pullback pressures were then recorded.The arterial sheath was pulled and a TR Band was applied for hemostasis CORONARY ANGIOGRAPHY DOMINANCE: Right Dominant LEFT HEART ASSESSMENT Left Ventricular Ejection Fraction: by LV Gram 65 % Normal LV wall motion Normal Left Ventricular systolic function LEFT MAIN: Angiographically normal LEFT ANTERIOR DESCENDING ARTERY: Mild luminal irregularities less than 30% CIRCUMFLEX ARTERY: No significant disease noted RIGHT CORONARY ARTERY: No significant disease noted COMPLICATIONS No Complications PROCEDURE MEDICATIONS Fentanyl 50 mcg IV Versed 1 mg IV Versed 1 mg IV Oxygen: 2 L/min via nasal cannula Heparin given IA 04/03/2024 09:34:13 Verapamil 2.5mg, Ntg 200mcgs, 2000 units of Heparin given IA 04/03/2024 09:34:13 SUMMARY OF HEMODYNAMIC DATA Time AIR REST ECG 08:51:51 AO 96/68 (82) SA 09:35:21 LV 95/5, 12 09:45:11 LV 92/12, 13 09:45:18 LV 94/17, 19 09:45:46 LV 98/8, 12 09:46:00 LVp 102/7, 13 09:46:06 AOp 100/68 (83) 09:46:11 09:57:11 Signed By David Arreola MD On 04/03/2024 09:59:01 David Arreola MD
== END 2024-04-03 11:30 | disposition home or self-care (01) ==
PROVIDERS: PCP Internal Medicine; Referring Provider Internal Medicine Cardiovascular Disease; Visit Provider Internal Medicine Cardiovascular Disease
DX: R07.89 Other chest pain (principal); N18.30 Chronic kidney disease, stage 3 unspecified; R06.02 Shortness of breath; I12.9 Hypertensive chronic kidney disease with stage 1 through stage 4 chronic kidney disease, or unspecified chronic kidney disease; E78.5 Hyperlipidemia, unspecified; F41.9 Anxiety disorder, unspecified; F32.A Depression, unspecified; M79.7 Fibromyalgia; M54.12 Radiculopathy, cervical region; M54.16 Radiculopathy, lumbar region; Z98.1 Arthrodesis status; Z87.19 Personal history of other diseases of the digestive system; Z79.82 Long term (current) use of aspirin; Z79.899 Other long term (current) drug therapy; Z87.891 Personal history of nicotine dependence
CPT/HCPCS: 93458; 99152; 99153; J7040; Q9967; C1769; C1894

== ENCOUNTER → 2024-10-25 | Outpatient (CLI) | payer MEDICARE, MEDICAID, SELFPAY ==
[2024-10-25 12:49] LABS: Absolute Lymphocyte Count 1.97 X10^3/uL (0.83-4.51); Absolute Neutrophil Count 4.6 X10^3/uL (2.0-7.7); Basophil# 0.05 X10^3/uL; Basophil% 0.7 % (0-1); Eosinophil# 0.29 X10^3/uL; Eosinophils% 3.9 % (0-5); Hematocrit 46.1 % (40-54); Hemoglobin 15.3 g/dL (13.0-16.5); Lymphocyte # 1.97 X10^3/ul (0.83-4.51); Lymphocyte % 26.5 % (19-41); Mean Corp Hgb Conc 33.2 g/dL (32-36); Mean Corpuscular Hgb 29.8 pg (27.0-32.0); Mean Corpuscular Volume 89.7 fL (80-94); Mean Platelet Vol. 10.4 fl (6.2-12.0); Monocyte% 6.7 % (0-10); NRBC Flagged by Analyzer 0 % (0-5); Neutrophil # 4.61 X10^3/uL (2.7-7.7); Neutrophil % 61.9 % (47-70); Platelet Count 301 K/mm3 (150-450); RBC Distribution Width CV 13.4 % (11.6-14.6); RBC Distribution Width SD 43.8 fl (35.1-43.9); Red Blood Count 5.14 M/mm3 (4.6-6.2); White Blood Count 7.4 K/mm3 (4.4-11.0)
[2024-10-25 13:42] LABS: ALB/GLOB Ratio 1.4 RATIO (0.9-2.4); AST(SGOT) 24 U/L (<=37); Alanine Aminotransfer ALT/SGPT 33 U/L (<=46); Albumin, Serum 4.3 g/dL (3.4-4.8); Alkaline Phosphatase 98 U/L (40-129); Anion Gap 11 (5-15); BUN 24 mg/dL (4-19); BUN/Creat Ratio 24.4 RATIO (10-20); Calcium,Total 9.1 mg/dL (7.6-11.0); Carbon Dioxide 23.9 mmol/L (21.0-32.0); Chloride 104 mmol/L (98-108); Cholesterol 226 mg/dL (<=200); Creatinine, Serum 0.99 mg/dL (0.70-1.20); EST Glomerular Filtration Rate 86 (>60); Globulin 3.2 g/dL (2.2-4.2); Glucose 123 mg/dL (70-99); High Density Lipoprotein 32 mg/dL; Low Density Lipoprotein Calc. 125 mg/dL; Potassium 4.2 mmol/L (3.3-5.1); Protein, Total 7.5 g/dL (5.9-8.4); Sodium Level 139 mmol/L (133-145); Total Bilirubin 0.28 mg/dL (0.00-1.30); Triglycerides 346 mg/dL; Very Low Density Lipoprotein 69 mg/dL (5-40); Vitamin B12 557 pg/mL (180-914); Vitamin D,25 Hydroxy 26.2 ng/mL (30-100); cholesterol:hdl ratio screen 7.02
[2024-10-27 12:08] LABS: ANTINUCLEAR ANTIBODIES DIRECT Negative (Negative)
== END | disposition home or self-care (01) ==
LOC: BIMLAB 08:59
PROVIDERS: PCP Internal Medicine; Referring Provider Physician Assistant; Visit Provider Physician Assistant
DX: I10 Essential (primary) hypertension (principal); M79.10 Myalgia, unspecified site; E55.9 Vitamin D deficiency, unspecified; E78.5 Hyperlipidemia, unspecified; R25.2 Cramp and spasm
CPT/HCPCS: 36415; 80053; 80061; 82306; 82607; 84443; 85025; 86038; 86225